=== PATIENT | female | born 1945 | race Caucasian/White ===

== ENCOUNTER → 2019-01-28 | Outpatient (CLI) | payer MEDICARE ==
[2019-01-28 10:47] LABS: INR 2.9 (<1.2); Partial Thromboplastin Time 34.9 sec (22.0-30.0); Prothrombin Time 27.8 sec (9.0-12.0)
[2019-01-28 10:56] LABS: Appearance,Urine Clear (Clear); Bilirubin,Urine Negative (Negative); Blood,Urine Negative (Negative); Color,Urine Light Yellow; Glucose,Urine (UA) 4+ (Negative); Ketones,Urine Trace (Negative); Leukocyte Esterase,Urine Negative (Negative); Nitrite,Urine Negative (Negative); Protein,Urine Negative (Negative); Specific Gravity,Urine 1.017 (1.001-1.035); Urobilinogen,Urine <2.0 mg/dL (<2.0)
[2019-01-28 10:59] LABS: ALT 53 U/L (9-52); AST 62 U/L (14-36); African American GFR (CKD) >90 (>60 ml/min/1.73 sqM); Albumin 4.1 g/dL (3.5-5.0); Alkaline Phosphatase 69 U/L (38-126); Anion Gap 15 mmol/L; Blood Urea Nitrogen 18 mg/dL (7-17); Calcium 9.6 mg/dL (8.4-10.2); Carbon Dioxide 20 mmol/L (22-30); Chloride 101 mmol/L (98-107); Glucose 285 mg/dL (74-99); Potassium 4.8 mmol/L (3.5-5.1); Sodium 136 mmol/L (137-145); Total Bilirubin 0.3 mg/dL (0.2-1.3); Total Protein 6.5 g/dL (6.3-8.2)
[2019-01-28 11:02] LABS: Basophils % (A) 1 %; Eosinophils # (A) 0.1 k/uL (0-0.7); Eosinophils % (A) 3 %; HCT 36.4 % (34.0-46.0); HGB 11.7 gm/dL (11.4-16.0); Hypochromasia Slight; Lymphocytes # (A) 0.9 k/uL (1.0-4.8); Lymphocytes % (A) 25 %; MCH 28.2 pg (25.0-35.0); MCHC 32.1 g/dL (31.0-37.0); MCV 87.9 fL (80.0-100.0); Mean Platelet Volume 6.5; Monocytes # (A) 0.2 k/uL (0-1.0); Monocytes % (A) 5 %; Neutrophils # (A) 2.5 k/uL (1.3-7.7); Neutrophils % (A) 65 %; Platelet Count 174 k/uL (150-450); RBC 4.14 m/uL (3.80-5.40); RDW 13.8 % (11.5-15.5); WBC 3.8 k/uL (3.8-10.6)
--- NOTE | 2019-01-28 11:17 | XR ---
EXAMINATION TYPE: XR chest 2V DATE OF EXAM: 01/28/2019 COMPARISON: NONE HISTORY: Presurgical testing for spinal surgery. TECHNIQUE: Frontal and lateral views of the chest are obtained. FINDINGS: There is no focal air space opacity, pleural effusion, or pneumothorax seen. The cardiac silhouette size is within normal limits. The osseous structures are intact. Mild multilevel degener ative changes of the thoracic spine. IMPRESSION: No acute cardiopulmonary process.
== END | disposition home or self-care (01) ==
LOC: LABPAT 09:30
PROVIDERS: ATTEND Orthopaedic Surgery Orthopaedic Surgery of the Spine
DX: Z01.818 Encounter for other preprocedural examination (principal); Z01.812 Encounter for preprocedural laboratory examination; M48.061 Spinal stenosis, lumbar region without neurogenic claudication; Z79.01 Long term (current) use of anticoagulants
CPT/HCPCS: 71046; 80053; 81003; 85025; 85610; 85730; 87070; 93005

== ENCOUNTER → 2019-01-28 | Outpatient (CLI) | payer MEDICARE ==
[2019-01-28 18:52] LABS: Hemoglobin A1C 7.3 % (4.0-6.0)
== END | disposition home or self-care (01) ==
LOC: LABWHC1 09:35
PROVIDERS: ATTEND Physician Assistant
DX: E11.9 Type 2 diabetes mellitus without complications (principal)
CPT/HCPCS: 36415; 83036

== ENCOUNTER 2019-02-09 08:46 | Inpatient (IN) | payer MEDICARE ==
[2019-02-02 09:03] VITALS: BMI 31.4
[~2019-02-09 08:46] MED LIST: BACITRACIN 50,000 UNIT, POLYMYXIN B 500,000 UNIT in SODIUM CHLORIDE 0.9% IRRIGATIO 1,00... IRRIGATION ONE
[2019-02-09] MEDS ORDERED: MIDAZOLAM 2 MG/2 ML VIAL IV PRN (09:01)
[2019-02-09] MEDS ORDERED: LIDOCAINE 1% 20 ML VIAL (10MG/ML) FOR IV START INTRADERMA PRN (09:01)
[2019-02-09] MEDS ORDERED: SCOPOLAMINE 1.5MG/72HR PATCH TRANSDERM ONE (09:01)
[2019-02-09] MEDS ORDERED: DEXAMETHASONE SOD PHOSPHATE 10 MG/ML 1 ML VIAL IV ONE (09:01)
[2019-02-09] MEDS ORDERED: ONDANSETRON 4 MG/2 ML VIAL IVP ONE (09:01)
[2019-02-09] MEDS: LACTATED RINGERS 1,000 ML IV SCH (09:41)
[2019-02-09 09:45] LABS: Glucose,Whole Blood 172 mg/dL (75-99)
[2019-02-09 10:24] LABS: INR 1.1 (<1.2); Prothrombin Time 11.5 sec (9.0-12.0)
[2019-02-09] MEDS ORDERED: SUCCINYLCHOLINE CHLORIDE 100 MG/5 ML SYR IV ONE (10:26)
[2019-02-09] MEDS ORDERED: HYDROmorphone (PF) 1 MG/ML ONE (10:26)
[2019-02-09] MEDS ORDERED: fentaNYL (PF) 50 MCG/ML 2 ML AMP ONE (10:26)
[2019-02-09] MEDS ORDERED: ePHEDrine SULFATE/0.9% NACL/PF 50 MG/5 ML SYRINGE IV ONE (10:26)
[2019-02-09] MEDS ORDERED: PROPOFOL 10 MG/ML 20 ML VIAL IV ONE (10:26)
[2019-02-09] MEDS ORDERED: LIDOCAINE 1% INJ 10MG/ML (20 ML MDV) ONE (10:26)
[2019-02-09] MEDS ORDERED: MIDAZOLAM 2 MG/2 ML VIAL ONE (10:26)
[2019-02-09] MEDS ORDERED: THROMBIN (BOVINE) 5,000 UNIT VIAL TOPICAL ONE (10:30)
[2019-02-09] MEDS ORDERED: LIDOCAINE 0.5%-EPI 1:200,000 50 ML VIAL SQ ONE (10:30)
[2019-02-09] MEDS ORDERED: GELATIN SPONGE,ABSORB (LARGE) 1 EACH SPONGE TOPICAL ONE (10:30)
[2019-02-09] MEDS ORDERED: LACTATED RINGERS 1,000 ML IV ONE ×2 (12:07→13:46)
[2019-02-09] MEDS ORDERED: BENZOCAINE/MENTHOL LOZENG 1 EACH LOZENGE MUCOUS MEM PRN (14:45)
[2019-02-09] MEDS ORDERED: ONDANSETRON 4 MG/2 ML VIAL IVP PRN (14:45)
[2019-02-09] MEDS ORDERED: HYDROmorphone 1 MG/ML 1 ML SYRINGE IVP PRN (14:45)
[2019-02-09] MEDS ORDERED: MAGNESIUM HYDROXIDE 2,400 MG/10 ML CUP PO PRN (14:45)
[2019-02-09] MEDS ORDERED: HYDROcodone/APAP 5-325MG 1 EACH TAB PO PRN (14:45)
--- NOTE | 2019-02-09 14:54 | P.OP ---
Date of Procedure: 02/09/19 Preoperative Diagnosis: Severe spinal stenosis L3 4 L4 5, neurogenic claudication, bilateral lower extremity radiculopathy , low back pain, facet arthrosis, degenerative disc disease Postoperative Diagnosis: Same Anesthesia: GETA Pathology: none sent Condition: stable Disposition: PACU Description of Procedure: DESCRIPTION OF PROCEDURE(S): BRIEF OPERATIVE NOTE Preoperative Diagnosis: Severe spinal stenosis L3 4 L4 5, neurogenic claudication, bilateral lower extremity radiculopathy , low back pain, facet arthrosis, degenerative disc disease Postoperative Diagnosis:Severe spinal stenosis L3 4 L4 5, neurogenic claudication, bilateral lower extremity radiculopathy , low back pain, facet arthrosis, degenerative disc disease Procedure: Laminectomy and decompression L3 4 L4 5 Minimally invasive Posterior lateral decompression and facet fusion L3 4 L4 5 Minimally invasive Transforaminal lumbar interbody fusion for a 360 fusion L3 4 L4 5 Discectomy for decompression L3 4 L4 5 Placement of interbody graft L3 4 L4 5 Local autogenous bone grafting Harvesting of bone marrow aspirate he the pedicle and vertebral body of L3 on the right Use of Cell Saver Use of bone graft extenders Surgeon: Dr. Ferro Environmental Compliance Inspector: Bear Martinez is present throughout the entire the case persistence during positioning, dissection, exposure, visualization, and all crucial elements of the case as well as closure. Anesthesia: General anesthesia per Dr. Martin Estimated blood loss: Approximately 550 mL with 219 given back through Cell Saver Complications: None apparent Components implanted: K2M minimally invasive [place] pedicle screw system with use of 6 screws measuring 6.5 x 45 mm 2 rods measuring 65 mm to [place] interbody cages with 10 mL of Bio4 bone graft and 30 mL of DBX bone fibers to supplemental local autogenous bone graft Disposition: To recovery room in good stable condition. OPERATIVE INDICATIONS The patient has had long-standing issues in their lower back and lower extrem ities. She is having worsening symptoms at her back and bilateral lower extremities particularly with mobilization and ambulation and standing. She is found to have severe stenosis L3 4 and L4 5 with degenerative disc changes. These findings correlated well with her low back and lower extremity symptoms. She is not having any benefit despite aggressive conservative treatment. The patient has been through conservative treatment. We discussed various treatment options including surgery, and the patient wishes to proceed with surgery We discussed the risk, patient's alternatives and benefits of surgery including but not limited to, risk of bleeding risk of infection, risk of need for further surgery, risk of decreased, loss of motion, muscle function, malunion nonunion, hardware failure, nerve damage, paralysis, heart attack, blindness and . OPERATIVE SUMMARY After discussing all the risks, patient alternatives and benefits at length, the patient elected to proceed with surgical intervention, signed informed consent, and presented for their procedure. The patient was seen and examined in the preoperative holding area and the surgical site was marked. The patient was giv en antibiotics and brought to the operating room. The patient was sedated and intubated by anesthesia in standard fashion. The patient was positioned on to the operating room table in a prone position on the appropriate frame which was well-padded and well molded. We were careful to pad any bony prominences and pressure points. We were careful to maintain the patient's cervical spine and good neutral alignment and position throughout. The patient was prepped and draped in a normal standard fashion. An appropriate timeout and keystone protocol performed. We were able to proceed with the s urgery. The local wound area was infiltrated with local anesthetic. I was able utilize C-arm guidance to establish appropriate position over the pedicles bilaterally at the appropriate levels at L3 4 and 5. With the appropriate levels confirmed was able to make small stab incisions over the appropriate pedicle sites bilaterally. Utilizing C-arm in his house able to establish a Jamshidi needle over the lateral aspect of the pedicle and advanced the trocar into the pedicle being careful not to breech superiorly inferiorly medially or laterally. Position was confirmed regularly with AP and lateral images on C-arm. I was able to establish the trocar into the pedicle appropriately into the posterior aspect of the vertebral body bilaterally at the appropriate levels at L3-L4 and L5. This was done at each of the pedicle positions and each of the vertebrae. At L3 on the right I withdrew approximately 25 mL of bone marrow aspirate to be used for supplementing the autograft and allograft later in the case. I was able place the guidewire into the trocar and into the vertebral body appropriately under C-arm guidance. Dissection was taken down over the wire to the appropriate starting position for the screw placed. The appropriate length screw was chosen, threaded over the guidewire and screwed appropriately into the pedicle and vertebral body under C- arm guidance in excellent alignment and position with good bony purchase. This is done at each of the screw sites at the appropriate levels at L3 4 L4 5. At the L3 screw on the left I had positive stimulation with name testing and I move the screw laterally with guidance and direct observation. I was able get excellent alignment position and excellent bony purchase. The screw did not have any stimulation at 25 mA. With the screws intact I extended the incision to connect the screw hole sites on the most symptomatic side on the left. I started at L4 5 and then moved L3 4. I dissected down to establish access over the pars and lamina to the base of the spinous process. I was able to expose the facet joint. The capsule the facet was taken down and showed some facet arthrosis at the joint. I was able to use a combination of curettes and Kerrison rongeurs and a high-speed drill to take down the facet joint and do a facetectomy. Partial laminectomy was also performed. I was able get excellent foraminal decompression and central decompression with undermining across midline to perform a laminectomy centrally and contralaterally. As able get good central decompression. The ligamentum flavum was taken down to further decompress centrally and at bilateral neural foramen. I was able to expose the disc space and visualize the traversing nerve root. Note was made of some disc protrusion at the level causing further compression of the nerve root. I was able to establish a annulotomy at the appropriate level protecting soft tissue and neural structures. Note was made of some disc desiccation at the disc. I performed a complete discectomy with accommodation of curettes and rasps and scrapers. I was able get good endplate preparation at the disc space. I sized for the appropriate size interbody spacer protecting the soft tissue and neural structures. The wound was copiously irrigated and suctioned dry. There is no evidence of any dural tear or leak. I was able to pack the disc space with local autogenous bone graft as well as a small amount of bone graft which was also placed into the interbody cage itself. Protecting the soft tissue structures and neural structures I was able place the interbody cage in good alignment and good position with good fit and fill at the interbody space. This was done at both L4 5 and L3 4. His issues was confirmed with C-arm guidance. Good hemostasis maintained. There is no evidence of any dural tear or leak. The wound was irrigated and suctioned dry. With the hardware intact, intraoperative C-arm imaging was again taken which showed good alignment and position of the hardware at the appropriate levels at L3 4 and 5. We were then able to measure, contour and place the rods and appropriate hardware bilaterally. I was able to place capcrews, tighten them down, and torque them with the torque screwdriver appropriately. With this intact I was able to place the local autogenous bone graft with additional bone graft enhancer as necessary into the posterior lateral gutters over the decorticated transverse processes. The remainder of the bone graft was placed over the facet joint on the contralateral side after taking down the facet joint capsule. With the bone graft intact, a stable construct, and good decompression at the appropriate levels, we were able to proceed with closure. Good hemostasis was maintained. There is no evidence of dural tear or leak. The fascia was closed for a watertight closure. he subcuticular tissue was closed with absorbable suture. The wound was cleaned and dried and dressed with the appropriate dressing. The drapes were broken down. The patient was gently rolled back onto their hospital bed being careful to maintain their cervical spine and good neutral alignment and position. They were woken up by anesthesia, extubated, and brought to the recovery room in good stable condition. The patient will be admitted to the hospital for appropriate postoperative care, medical management and monitoring. We will continue to follow them closely about the postoperative course.
[2019-02-09] MEDS ORDERED: WARFARIN 5 MG TAB PO SCH (15:00)
[2019-02-09 15:10] LABS: Glucose,Whole Blood 147 mg/dL (75-99)
--- NOTE | 2019-02-09 15:45 | XR ---
Fluoroscopy INDICATION: Pain FINDINGS: Fluoroscopy time: 2.4 minutes Images obtained: 4. IMPRESSIONS: 1. Documentation of fluoroscopy.
[2019-02-09] MEDS: HYDROmorphone 0.5 MG/0.5 ML SYRINGE IVP PRN ×3 (15:48→20:41)
[2019-02-09] MEDS ORDERED: SODIUM CHLORIDE 0.9% 1,000 ML IV ONE (16:15)
[2019-02-09] MEDS: INSULIN ASPART (NovoLOG) 100 UNIT/ML VIAL SQ SCH ×2 (16:49→20:40)
[2019-02-09] MEDS: metFORMIN 500 MG TAB PO SCH (16:50)
[2019-02-09] MEDS ORDERED: WARFARIN 5 MG TAB PO ONE (18:00)
[2019-02-09] MEDS: HYDROcodone/APAP 5-325MG 1 EACH TAB PO PRN ×2 (18:08→23:04)
[2019-02-09 20:13] LABS: Glucose,Whole Blood 227 mg/dL (75-99)
[2019-02-09] MEDS: LISINOPRIL 20 MG TAB PO SCH (20:41)
[2019-02-09] MEDS: FERROUS SULFATE 325 MG TAB PO SCH (20:41)
[2019-02-09] MEDS: SODIUM CHLORIDE 0.9% 1,000 ML IV SCH (20:43)
[2019-02-10] MEDS: HYDROmorphone 0.5 MG/0.5 ML SYRINGE IVP PRN ×4 (01:57→18:26)
[2019-02-10] MEDS: HYDROcodone/APAP 5-325MG 1 EACH TAB PO PRN ×4 (04:39→20:09)
[2019-02-10] MEDS: SODIUM CHLORIDE 0.9% 1,000 ML IV SCH ×2 (04:40→17:02)
[2019-02-10 06:59] LABS: Glucose,Whole Blood 252 mg/dL (75-99)
[2019-02-10] MEDS: GLIMEPIRIDE 2 MG TAB PO SCH (07:05)
[2019-02-10] MEDS: metFORMIN 500 MG TAB PO SCH ×2 (07:05→17:31)
[2019-02-10] MEDS: INSULIN ASPART (NovoLOG) 100 UNIT/ML VIAL SQ SCH ×3 (07:05→17:31)
[2019-02-10 07:13] LABS: Basophils % (A) 0 %; Eosinophils # (A) 0.2 k/uL (0-0.7); Eosinophils % (A) 3 %; HCT 32.6 % (34.0-46.0); HGB 10.4 gm/dL (11.4-16.0); Hypochromasia Moderate; Lymphocytes # (A) 0.3 k/uL (1.0-4.8); Lymphocytes % (A) 5 %; MCH 27.9 pg (25.0-35.0); MCHC 31.7 g/dL (31.0-37.0); MCV 87.9 fL (80.0-100.0); Mean Platelet Volume 6.9; Monocytes # (A) 0.3 k/uL (0-1.0); Monocytes % (A) 5 %; Neutrophils # (A) 5.8 k/uL (1.3-7.7); Neutrophils % (A) 86 %; Platelet Count 133 k/uL (150-450); RBC 3.71 m/uL (3.80-5.40); RDW 13.8 % (11.5-15.5); WBC 6.8 k/uL (3.8-10.6)
[2019-02-10 07:21] LABS: INR 1.1 (<1.2); Prothrombin Time 11.9 sec (9.0-12.0)
[2019-02-10 07:25] LABS: Calcium 8.1 mg/dL (8.4-10.2); Potassium 4.7 mmol/L (3.5-5.1)
--- NOTE | 2019-02-10 08:44 | P.PN ---
Progress Note - Text Progress Note Date: 02/10/19 Postoperative day #1 Patient is seen and examined today at bedside. The patient has some pain around the surgical site as expected. Pain is being controlled with medication. She says her legs are doing well without any new change. She has pain at her back which is expected. She has not been out of bed. She is tolerating her diet adequately. Physical Exam Afebrile with stable vital signs Abdomen is soft nontender. Chest has good excursion deep and space expiration The incision site is clean dry and intact. No erythema there is no purulence. Dressings are clean at her back. Extremities have not had neurologic change from prior to surgery. She has sustained dorsal flexion plantarflexion and EHL intact Calves and thighs were soft nontender without evidence of DVT. Assessment/Plan Postoperative day #1 status post minimally invasive decompression and fusion for her severe spinal stenosis L3 4 L4 5 with disc degeneration lower extremity radiculopathy Patient is progressing as expected from the surgery. Her pain at her back is expected and is being controlled with medication. She will try to get up with therapy today she feels that she will be able to do it. She is hopeful to increase her mobility over the next couple of days so that she can go directly to home rather than a facility and I think that is reasonable if she makes good progress with her mobility safely. We will continue to increase the patient's mobilization with therapy. We will continue pain control with oral or IV medications. We'll continue to follow patient closely.
[2019-02-10] MEDS: FERROUS SULFATE 325 MG TAB PO SCH ×2 (09:38→20:09)
[2019-02-10] MEDS: SENNOSIDES-DOCUSATE SODIUM 1 EACH TAB PO SCH (09:38)
[2019-02-10] MEDS: BISOPROLOL-HCTZ 5-6.25 MG 1 EACH TAB PO SCH (09:38)
[2019-02-10] MEDS: PARoxetine 20 MG TAB PO SCH (09:38)
[2019-02-10] MEDS: LACTATED RINGERS 1,000 ML IV SCH (10:52)
[2019-02-10 11:50] LABS: Glucose,Whole Blood 184 mg/dL (75-99)
--- NOTE | 2019-02-10 17:01 | P.CONS ---
History of Present Illness - Reason for Consult Consult date: 02/10/19 Medical management Requesting physician: Quinn Ferro - Chief Complaint Back surgery - History of Present Illness Consultation: This is a pleasant 72-year-old patient of Dr. Aggarwal. Chronic stable medical conditions include atrial fibrillation, diabetes, GERD, hypertension, osteoarthritis. Patient had severe spinal stenosis and L3-L4 and L4-L5 level with neurogenic claudication bilateral lower extremity radiculopathy lower back pain. Patient underwent discectomy and associated surgical intervention by Dr. Ferro. This was done on February 09. Today patient's feeling a bit better. Back pain is present. Did eat a small amount of food.. Did use a walker to get to the bathroom. Seen by physical therapy. No fever no chills. Slight nausea. No chest pain no shortness breath. Did pass some flatus. Review of systems: GEN.: Tired EYES: None HEENT: None NECK: None RESPIRATORY: None CARDIOVASCULAR: None GASTROINTESTINAL: None GENITOURINARY: None MUSCULOSKELETAL: [Joint pain LYMPHATICS: None HEMATOLOGICAL: None PSYCHIATRY: None NEUROLOGICAL: None Social history: Does not smoke. No alcohol. Physical examination: VITAL SIGNS: 98.4, 91, 16, 90/50, 99% room air GENERAL: BMI 30.2, sitting up tired. EYES: Pupils equal. Conjunctiva normal. HEENT: External appearance of nose and ears normal, oral cavity grossly normal. NECK: JVD not raised; masses not palpable. HEART: First and second heart sounds are normal; no edema. LUNGS: Respiratory rate normal; clear to auscultation. ABDOMEN: Soft, nontender, liver spleen not palpable, no masses palpable. PSYCH: Alert and oriented x3; mood and affect normal. NEUROLOGICAL: Cranial nerves grossly intact; no facial asymmetry, power and sensation grossly intact, is using a walker to get to the bathroom. LYMPHATICS: No lymph nodes palpable in the axilla and neck MUSCULAR skeletal: Dressing over the surgical site INVESTIGATIONS, reviewed in the clinical context: White count 6.8 hemoglobin 10.4 platelets 133 potassium 4.7 creatinine 0.79 Accu-Cheks 252, 184 Preop hemoglobin was 11.7 EKG tracing personally reviewed by me-from January 28 shows right bundle-branch block, sinus rhythm Assessment: -Severe spinal stenosis L3-L4, L4-L5 with neurogenic claudication, bilateral lower extremity radiculopathy and low back pain resulting in lumbar surgery done on February 09 -Paroxysmal atrial fibrillation, for which patient is chronically on Coumadin -Diabetes mellitus type 2 on oral hypoglycemic -Essential hypertension -Primary osteoarthritis -Obesity BMI 30.2 -Restless leg syndrome Plan: -Patient is on pain medication per the orthopedic team. Home medications resumed. Accu-Cheks are being followed. Coumadin will be resumed today.-As per surgery. Care was discussed with the patient and his sister at the bedside. Questions were answered Thank you Dr. Ferro Past Medical History Past Medical History: Atrial Fibrillation, Diabetes Mellitus, GERD/Reflux, Hypertension, Osteoarthritis (OA), Pneumonia Additional Past Medical History / Comment(s): steroid injection back Nov 2018,herniated disc,ddd sciatic nerve pain, shingles 1994 History of Any Multi-Drug Resistant Organisms: None Reported Past Surgical History: Adenoidectomy, Heart Catheterization, Hysterectomy, Joint Replacement, Tonsillectomy Additional Past Surgical History / Comment(s): lt knee arthrocopy, shai knee replacements d&cx2, 2 ectopic pregnancies, partial hysterectomy, rt breast bx- neg, cystocele/rectocele repair, shai carpal tunnel release; shai cataracts Past Anesthesia/Blood Transfusion Reactions: Motion Sickness Additional Past Anesthesia/Blood Transfusion Reaction / Comm: no hx blood transfusion Smoking Status: Never smoker - Past Family History Mother Family Medical History: Cancer, Dementia Additional Family Medical History / Comment(s): irregular heart rythm, colon cancer, lived till she was 92 years old Father Family Medical History: Myocardial Infarction ([place]) Additional Family Medical History / Comment(s): at age 62 from massive mi Medications and Allergies Home Medications Medication Instructions Recorded Confirmed Type Ferrous Sulfate [Feosol] 325 mg PO BID 02/15/15 02/09/19 History PARoxetine [Paxil] 20 mg PO QAM 02/15/15 02/09/19 History metFORMIN HCL 1,000 mg PO BID 02/15/15 02/09/19 History Bisoprolol-Hctz 5-6.25 mg [Ziac 1 each PO QAM 04/08/16 02/09/19 History 5-6.25] Garlic 1 each PO DAILY 04/08/16 02/09/19 History Lisinopril [Zestril] 20 mg PO HS 04/08/16 02/09/19 History [place]-3 Fatty Acids/Fish Oil [Fish 1 each PO DAILY 04/08/16 02/09/19 History Oil 1,000 mg Softgel] Warfarin [Coumadin] 5 mg PO SUTUWEFRSA 04/08/16 02/09/19 History Warfarin [Coumadin] 6 mg PO MOTH 04/08/16 02/09/19 History rOPINIRole HCL [Requip] 1 mg PO HS 04/08/16 02/09/19 History Glucos Sul 2Kcl/MSM/Chond/C/Mn 1 each PO DAILY 02/02/19 02/09/19 History [Glucosamine Chondroitin Cap] Acetaminophen Tab [Tylenol Tab] 1,000 mg PO Q6HR PRN 02/03/19 02/09/19 History Glimepiride [Amaryl] 2 mg PO DAILY 02/04/19 02/09/19 History Allergies Allergy/AdvReac Type Severity Reaction Status Date / Time No Known Allergies Allergy Verified 02/09/19 16:35 Physical Exam Vitals: Vital Signs Temp Pulse Resp BP Pulse Ox 02/10/19 07:00 98.3 F 100 16 107/64 92 L 02/10/19 04:50 17 02/10/19 02:23 97.8 F 101 H 17 107/59 98 02/09/19 23:00 17 02/09/19 19:41 97 02/09/19 19:33 97.7 F 88 18 130/65 98 02/09/19 19:20 18 02/09/19 19:15 86 137/65 90 L 02/09/19 19:00 85 134/61 90 L 02/09/19 18:45 88 136/63 92 L 02/09/19 18:00 86 144/82 94 L 02/09/19 17:50 98.4 F 91 16 147/79 91 L 02/09/19 17:45 88 139/82 97 02/09/19 17:30 93 118/56 96 02/09/19 17:15 85 146/83 96 02/09/19 17:00 86 146/81 96 02/09/19 16:45 98.8 F 88 18 154/77 97 02/09/19 16:13 86 16 132/64 96 02/09/19 15:55 87 16 131/60 96 02/09/19 15:40 86 16 161/70 95 02/09/19 15:25 96 18 147/65 95 02/09/19 15:10 101 H 16 147/63 97 02/09/19 14:55 99 16 147/69 98 02/09/19 14:40 98.7 F 105 H 14 147/67 97 Intake and Output 02/09/19 02/10/19 02/10/19 22:59 06:59 14:59 Intake Total 200 Output Total 275 Balance -75 Intake: IV 200 Output: Urine 275 Other: Voiding Method Indwelling Catheter Indwelling Catheter # Voids 500 Results CBC & Chem 7: 02/10/19 07:00 02/10/19 07:00 Labs: Abnormal Lab Results - Last 24 Hours (Table) 02/09/19 02/09/19 02/10/19 Range/Units 15:08 19:54 06:56 RBC (3.80-5.40) m/uL Hgb (11.4-16.0) gm/dL Hct (34.0-46.0) % Plt Count (150-450) k/uL Lymphocytes # (1.0-4.8) k/uL Carbon Dioxide (22-30) mmol/L BUN (7-17) mg/dL Glucose (74-99) mg/dL POC Glucose (mg/dL) 147 H 227 H 252 H (75-99) mg/dL Calcium (8.4-10.2) mg/dL 02/10/19 02/10/19 Range/Units 07:00 07:00 RBC 3.71 L (3.80-5.40) m/uL Hgb 10.4 L (11.4-16.0) gm/dL Hct 32.6 L (34.0-46.0) % Plt Count 133 L (150-450) k/uL Lymphocytes # 0.3 L (1.0-4.8) k/uL Carbon Dioxide 21 L (22-30) mmol/L BUN 18 H (7-17) mg/dL Glucose 212 H (74-99) mg/dL POC Glucose (mg/dL) (75-99) mg/dL Calcium 8.1 L (8.4-10.2) mg/dL
[2019-02-10 17:33] LABS: Glucose,Whole Blood 185 mg/dL (75-99)
[2019-02-10] MEDS ORDERED: WARFARIN 5 MG TAB PO ONE (18:00)
[2019-02-10] MEDS: LISINOPRIL 20 MG TAB PO SCH (20:09)
[2019-02-10 23:36] LABS: Glucose,Whole Blood 202 mg/dL (75-99)
[2019-02-11] MEDS: INSULIN ASPART (NovoLOG) 100 UNIT/ML VIAL SQ SCH ×5 (00:05→20:31)
[2019-02-11] MEDS: HYDROmorphone 0.5 MG/0.5 ML SYRINGE IVP PRN ×5 (00:05→20:30)
[2019-02-11 06:58] LABS: Glucose,Whole Blood 237 mg/dL (75-99)
[2019-02-11] MEDS: SODIUM CHLORIDE 0.9% 1,000 ML IV SCH ×2 (07:26→20:32)
[2019-02-11] MEDS: LACTATED RINGERS 1,000 ML IV SCH (07:27)
[2019-02-11] MEDS: FERROUS SULFATE 325 MG TAB PO SCH ×2 (08:00→20:32)
[2019-02-11] MEDS: metFORMIN 500 MG TAB PO SCH ×2 (08:00→17:08)
[2019-02-11] MEDS: GLIMEPIRIDE 2 MG TAB PO SCH (08:00)
[2019-02-11] MEDS: HYDROcodone/APAP 5-325MG 1 EACH TAB PO PRN ×4 (08:00→23:17)
[2019-02-11] MEDS: PARoxetine 20 MG TAB PO SCH (08:00)
[2019-02-11] MEDS: SENNOSIDES-DOCUSATE SODIUM 1 EACH TAB PO SCH (08:00)
[2019-02-11] MEDS: BISOPROLOL-HCTZ 5-6.25 MG 1 EACH TAB PO SCH (08:01)
[2019-02-11 08:54] LABS: INR 1.2 (<1.2); Prothrombin Time 12.4 sec (9.0-12.0)
--- NOTE | 2019-02-11 09:08 | P.PN ---
Progress Note - Text Progress Note Date: 02/11/19 Orthopedic Spine Patient is a pleasant 73-year-old female who is seen and examined at the bedside following L3-4 and L4-5 minimally invasive posterior lateral decompression and fusion with transforaminal lumbar interbody fusion performed 02/09/2019. She feels she continues to improve slowly postoperatively. She denies any lower extremity weakness radiculopathy bilaterally. Her most significant symptom is pain at the lumbar spine at the surgical sites. She is currently receiving Dilaudid and oral Nes[place]set for pain control. She is planning to try to wean off Dilaudid today. She's been working with physical therapy to increase mobility. She is hopeful to continue to improve over the next 1-2 days with plans for discharge home. She states she does have help at home with multiple family members and feels she would be more comfortable at home versus rehab. Currently does not complain of nausea, vomiting, fever, or chills. Patient states pain has been adequately controlled. Patient is eating and voiding freely without difficulty. She has been using her incentive spirometer. Physical Exam Lumbar Fusion: Status post surgical day number 2 Patient is awake, alert, and oriented 3 Vital signs stable Good chest excursion with deep inspiration and expiration Abdomen soft nontender Dorsiflexion, plantarflexion, and extensor hallucis longus positive sustained bilaterally No signs or symptoms of DVT; no calf pain; pneumatic cuffs intact bilateral lower extremities Dressing is clean, dry, and intact; no erythema, purulence, or signs of infection Neurovascularly intact bilaterally lower extremities Assessment: L3-4 and L4-5 minimally invasive posterior lateral decompression and fusion with transforaminal lumbar interbody fusion Diabetes type 2 History of Atrial fibrillation History of Heart disease Hypertension Plan: 1. Ambulate as tolerated; work with Physical Therapy to increase mobilization 2. Continue pain control with IV and oral medications; we'll plan to wean off IV medications in anticipation for discharge home over the next 1-2 days MAPS has been reviewed today, 02/11/2019, with an Overall Overdose Risk Score of 000. An "Opiod Start Talking" Form has been signed and placed in the patient's chart. A prescription has been written for Nesconset 5 mg/325 mg 1-2 tabs every 6 hours as needed for pain, dispensed #56. Prescription has been sent to the patient's pharmacy in [place], [place]. She should avoid anti-inflammatories over the next 6 weeks postoperatively. 3. Dressing changed to Telfa and Tegaderm; Hemovac drain discontinued 4. Medical management can continue to manage patient for patient's other medical issues 5. We will continue to follow the patient closely 6. Patient can follow-up with Bear Rutledge PA-C or Dr. Asaf Ferro at [facility] in 2-3 weeks following discharge
[2019-02-11 11:52] LABS: Glucose,Whole Blood 152 mg/dL (75-99)
[2019-02-11 16:59] LABS: Glucose,Whole Blood 113 mg/dL (75-99)
[2019-02-11] MEDS ORDERED: WARFARIN 7.5 MG TAB PO ONE (18:00)
[2019-02-11 20:30] LABS: Glucose,Whole Blood 146 mg/dL (75-99)
[2019-02-11] MEDS: LISINOPRIL 20 MG TAB PO SCH (20:31)
--- NOTE | 2019-02-11 22:37 | P.PN ---
Progress Note - Text Progress Note Date: 02/11/19 Consultation: This is a pleasant 72-year-old patient of Dr. Aggarwal. Chronic stable medical conditions include atrial fibrillation, diabetes, GERD, hypertension, osteoarthritis. Patient had severe spinal stenosis and L3-L4 and L4-L5 level with neurogenic claudication bilateral lower extremity radiculopathy lower back pain. Patient underwent discectomy and associated surgical intervention by Dr. Ferro. This was done on February 09. Today-feeling better. Did walk in the hallway with physical therapy. Pain is better controlled. Did pass flatus. No bowel movement. Eating better. at the bedside. Review of systems: Was done for constitutional, cardiovascular, GI, pulmonary. Musculoskeletal relevant finding as above Active Medications Hydrocodone Bitart/Acetaminophen ([place] 5-325) 1 each PO Q4HR PRN PRN Reason: Moderate Pain Hydrocodone Bitart/Acetaminophen ([place] 5-325) 2 each PO Q4HR PRN PRN Reason: Moderate Pain Last Admin: 02/11/19 17:09 Dose: 2 each Documented by: Benzocaine/Menthol (Cepacol Lozenge) 1 each MUCOUS MEM Q4HR PRN PRN Reason: Sore Throat Bisoprolol Fumarate (Ziac 5-6.25) 1 each PO QAM [facility] Last Admin: 02/11/19 08:01 Dose: 1 each Documented by: Ferrous Sulfate (Feosol) 325 mg PO BID [facility] Last Admin: 02/11/19 20:32 Dose: 325 mg Documented by: Glimepiride (Amaryl) 2 mg PO AC-BRKFST [facility] Last Admin: 02/11/19 08:00 Dose: 2 mg Documented by: Hydromorphone HCl (Dilaudid) 0.5 mg IVP Q4HR PRN PRN Reason: Pain Last Admin: 02/11/19 20:30 Dose: 0.5 mg Documented by: Hydromorphone HCl (Dilaudid) 1 mg IVP Q4HR PRN PRN Reason: Pain Lactated Ringer's (Lactated Ringers) 1,000 mls @ 20 mls/hr IV .Q24H [facility] Last Admin: 02/11/19 07:27 Dose: Not Given Documented by: Sodium Chloride (Saline 0.9%) 1,000 mls @ 75 mls/hr IV .[id number] [facility] Last Admin: 02/11/19 20:32 Dose: Not Given Documented by: Insulin Aspart (Novolog) 0 unit SQ ACHS [facility]; Protocol Last Admin: 02/11/19 20:31 Dose: 1 unit Documented by: Lidocaine HCl (.Xylocaine 1% Inj (10mg/Ml) For Iv Start) 0.1 ml INTRADERMA PER PROTOCOL PRN PRN Reason: IV Start Last Admin: 02/09/19 09:40 Dose: 0.1 ml Documented by: Lisinopril (Zestril) 20 mg PO [facility] Last Admin: 02/11/19 20:31 Dose: 20 mg Documented by: Magnesium Hydroxide (Milk Of Magnesia) 2,400 mg PO DAILY PRN PRN Reason: Constipation Metformin HCl (Glucophage) 1,000 mg PO AC-BID [facility] Last Admin: 02/11/19 17:08 Dose: 1,000 mg Documented by: Miscellaneous Information (Coumadin Per Pharmacy) 0 each MISCELLANE DIRECTED PRN PRN Reason: PHARMACY DOSING WARFARIN Ondansetron HCl (Zofran) 4 mg IVP Q6HR PRN PRN Reason: Nausea Last Admin: 02/09/19 16:51 Dose: 4 mg Documented by: Par[facility] ([facility]il) [facility] Last Admin: 02/11/19 08:00 Dose: 20 mg Documented by: Ropinirole HCl (Requip) 1 mg PO [facility] Last Admin: 02/11/19 20:31 Dose: 1 mg Documented by: Senna/Docusate Sodium (Senokot-S) 1 each PO DAILY [facility] Last Admin: 02/11/19 08:00 Dose: 1 each Documented by: Physical examination: VITAL SIGNS: 98.1, 102, 16, 11 5/62, 97% GENERAL: Propped bed, looking better EYES: Pupils equal. Conjunctiva normal. HEENT: External appearance of nose and ears normal, oral cavity grossly normal. NECK: JVD not raised; masses not palpable. HEART: First and second heart sounds are normal; no edema. LUNGS: Respiratory rate normal; clear to auscultation. ABDOMEN: Soft, nontender, liver spleen not palpable, no masses palpable. PSYCH: Alert and oriented x3; mood and affect normal. INVESTIGATIONS, reviewed in the clinical context: Accu-Cheks noted Previous testing White count 6.8 hemoglobin 10.4 platelets 133 potassium 4.7 creatinine 0.79 Accu-Cheks 252, 184 Preop hemoglobin was 11.7 EKG tracing personally reviewed by me-from January 28 shows right bundle-branch block, sinus rhythm Assessment: -Severe spinal stenosis L3-L4, L4-L5 with neurogenic claudication, bilateral lower extremity radiculopathy and low back pain resulting in lumbar surgery done on February 09 -Paroxysmal atrial fibrillation, for which patient is chronically on Coumadin -Diabetes mellitus type 2 on oral hypoglycemic -Essential hypertension -Primary osteoarthritis -Obesity BMI 30.2 -Restless leg syndrome Plan: Doing better. Continue current medication treatment plan. Care was discussed with the patient and the .: Coumadin to be Resume when okay with Dr. Ferro Thank you Dr. Ferro
[2019-02-12] MEDS: HYDROmorphone 0.5 MG/0.5 ML SYRINGE IVP PRN (02:36)
[2019-02-12 07:28] LABS: INR 1.2 (<1.2); Prothrombin Time 12.5 sec (9.0-12.0)
[2019-02-12 07:29] LABS: Glucose,Whole Blood 129 mg/dL (75-99)
[2019-02-12] MEDS: INSULIN ASPART (NovoLOG) 100 UNIT/ML VIAL SQ SCH ×4 (08:24→20:55)
[2019-02-12] MEDS: LACTATED RINGERS 1,000 ML IV SCH (08:25)
[2019-02-12] MEDS: GLIMEPIRIDE 2 MG TAB PO SCH (08:45)
[2019-02-12] MEDS: metFORMIN 500 MG TAB PO SCH ×2 (08:45→16:52)
[2019-02-12] MEDS: SENNOSIDES-DOCUSATE SODIUM 1 EACH TAB PO SCH (08:45)
[2019-02-12] MEDS: BISOPROLOL-HCTZ 5-6.25 MG 1 EACH TAB PO SCH (08:45)
[2019-02-12] MEDS: PARoxetine 20 MG TAB PO SCH (08:45)
[2019-02-12] MEDS: HYDROcodone/APAP 5-325MG 1 EACH TAB PO PRN ×4 (08:45→21:00)
[2019-02-12] MEDS: FERROUS SULFATE 325 MG TAB PO SCH ×2 (08:46→20:59)
[2019-02-12] MEDS: SODIUM CHLORIDE 0.9% 1,000 ML IV SCH ×2 (09:14→23:43)
--- NOTE | 2019-02-12 10:28 | P.PN ---
Progress Note - Text Progress Note Date: 02/12/19 Postoperative day #3 Patient is seen and examined today at bedside. The patient has some pain around the surgical site as expected. Pain is being controlled with medication. She has been able to ambulate into the hallway physical therapy but has significant difficulty on her own so far. She has been able have a bowel movement and she is tolerating her diet. Physical Exam Afebrile with stable vital signs Abdomen is soft nontender. Chest has good excursion deep and space expiration The incision site is clean dry and intact. No erythema there is no purulence. Her dressings are intact with no drainage Extremities have not had neurologic change from prior to surgery. She has sustained dorsal flexion plantar flexion and EHL intact. Calves and thighs were soft nontender without evidence of DVT. Assessment/Plan Postoperative day #3 status post been living base of decompression and fusion L34 L4 5 for severe spinal stenosis with lower extremity radiculopathy and neurogenic claudication Patient is progressing as expected from the surgery. She is making some improvement with her mobilization but it is still unable to move well on her own safely. She needs to make further progress with her transfers and ambulation on her own before she will be safe to be discharged home safely. She has 4 stairs to get into the house. Hopefully she will continue to make progress and be able to be discharged home on Thursday or Thursday on her own. We will continue to increase the patient's mobilization with therapy. Patient is okay to shower with her waterproof dressing intact. We will continue pain control with oral or IV medications. We'll continue to follow patient closely.
[2019-02-12 11:47] LABS: Glucose,Whole Blood 162 mg/dL (75-99)
[2019-02-12] MEDS: PANTOPRAZOLE 40 MG TABLET PO SCH (12:55)
[2019-02-12 17:08] LABS: Glucose,Whole Blood 86 mg/dL (75-99)
--- NOTE | 2019-02-12 17:57 | P.PN ---
Progress Note - Text Progress Note Date: 02/12/19 Consultation: This is a pleasant 72-year-old patient of Dr. Aggarwal. Chronic stable medical conditions include atrial fibrillation, diabetes, GERD, hypertension, osteoarthritis. Patient had severe spinal stenosis and L3-L4 and L4-L5 level with neurogenic claudication bilateral lower extremity radiculopathy lower back pain. Patient underwent discectomy and associated surgical intervention by Dr. Ferro. This was done on February 09. Today-continues to feel better. Did walk to the bathroom this morning. Awaiting therapy to walk in the hallway. Did have a bowel movement. Pain much better controlled. at the bedside. Review of systems: Was done for constitutional, cardiovascular, GI, pulmonary. Musculoskeletal relevant finding as above Active Medications Hydrocodone Bitart/Acetaminophen ([place] 5-325) 1 each PO Q4HR PRN PRN Reason: Moderate Pain Hydrocodone Bitart/Acetaminophen ([place] 5-325) 2 each PO Q4HR PRN PRN Reason: Moderate Pain Last Admin: 02/12/19 16:52 Dose: 2 each Documented by: Benzocaine/Menthol (Cepacol Lozenge) 1 each MUCOUS MEM Q4HR PRN PRN Reason: Sore Throat Bisoprolol Fumarate (Ziac 5-6.25) 1 each PO QAM [facility] Last Admin: 02/12/19 08:45 Dose: 1 each Documented by: Ferrous Sulfate (Feosol) 325 mg PO BID [facility] Last Admin: 02/12/19 08:46 Dose: 325 mg Documented by: Glimepiride (Amaryl) 2 mg PO AC-BRKFST [facility] Last Admin: 02/12/19 08:45 Dose: 2 mg Documented by: Hydromorphone HCl (Dilaudid) 0.5 mg IVP Q4HR PRN PRN Reason: Pain Last Admin: 02/12/19 02:36 Dose: 0.5 mg Documented by: Hydromorphone HCl (Dilaudid) 1 mg IVP Q4HR PRN PRN Reason: Pain Lactated Ringer's (Lactated Ringers) 1,000 mls @ 20 mls/hr IV .Q24H [facility] Last Admin: 02/12/19 08:25 Dose: Not Given Documented by: Sodium Chloride (Saline 0.9%) 1,000 mls @ 75 mls/hr IV .[id number] [facility] Last Admin: 02/12/19 09:14 Dose: Not Given Documented by: Insulin Aspart (Novolog) 0 unit SQ [facility]; Protocol Last Admin: 02/12/19 16:57 Dose: Not Given Documented by: Lidocaine HCl (.Xylocaine 1% Inj (10mg/Ml) For Iv Start) 0.1 ml INTRADERMA PER PROTOCOL PRN PRN Reason: IV Start Last Admin: 02/09/19 09:40 Dose: 0.1 ml Documented by: Lisinopril (Zestril) 20 mg PO [facility] Last Admin: 02/11/19 20:31 Dose: 20 mg Documented by: Magnesium Hydroxide (Milk Of Magnesia) 2,400 mg PO DAILY PRN PRN Reason: Constipation Metformin HCl (Glucophage) 1,000 mg PO AC-BID [facility] Last Admin: 02/12/19 16:52 Dose: 1,000 mg Documented by: Miscellaneous Information (Coumadin Per Pharmacy) 0 each MISCELLANE DIRECTED PRN PRN Reason: PHARMACY DOSING WARFARIN Ondansetron HCl (Zofran) 4 mg IVP Q6HR PRN PRN Reason: Nausea Last Admin: 02/09/19 16:51 Dose: 4 mg Documented by: Pantoprazole Sodium (Protonix) 40 mg PO AC-BRKFST [facility] Last Admin: 02/12/19 12:55 Dose: 40 mg Documented by: Paroxetine HCl (Paxil) [facility] [place] Last Admin: 02/12/19 08:45 Dose: 20 mg Documented by: Ropinirole HCl (Requip) 1 mg PO [facility] Last Admin: 02/11/19 20:31 Dose: 1 mg Documented by: Senna/Docusate Sodium (Senokot-S) 1 each PO DAILY [facility] Last Admin: 02/12/19 08:45 Dose: Not Given Documented by: Warfarin Sodium (Coumadin) 7.5 mg PO ONCE@1800 ONE Stop: 02/12/19 18:01 Last Admin: 02/12/19 16:52 Dose: 7.5 mg Documented by: Physical examination: VITAL: 98.3, 81, 16, 124/70, 94% room air GENERAL: Sitting up in bed, comfortable EYES: Pupils equal. Conjunctiva normal. HEENT: External appearance of nose and ears normal, oral cavity grossly normal. NECK: JVD not raised; masses not palpable. HEART: First and second heart sounds are normal; no edema. LUNGS: Respiratory rate normal; clear to auscultation. ABDOMEN: Soft, nontender, liver spleen not palpable, no masses palpable. PSYCH: Alert and oriented x3; mood and affect normal. INVESTIGATIONS, reviewed in the clinical context: Accu-Cheks noted Previous testing White count 6.8 hemoglobin 10.4 platelets 133 potassium 4.7 creatinine 0.79 Accu-Cheks 252, 184 Preop hemoglobin was 11.7 EKG tracing personally reviewed by me-from January 28 shows right bundle-branch block, sinus rhythm Assessment: -Severe spinal stenosis L3-L4, L4-L5 with neurogenic claudication, bilateral lower extremity radiculopathy and low back pain resulting in lumbar surgery done on February 09 -Paroxysmal atrial fibrillation, for which patient is chronically on Coumadin -Diabetes mellitus type 2 on oral hypoglycemic -Essential hypertension -Primary osteoarthritis -Obesity BMI 30.2 -Restless leg syndrome Plan: Patient doing much better. Medically stable. Does speak to the patient. Ambulate in the hallway. DC when okay with the primary team. Thank you Dr. Ferro
[2019-02-12] MEDS ORDERED: WARFARIN 7.5 MG TAB PO ONE (18:00)
[2019-02-12] MEDS: LISINOPRIL 20 MG TAB PO SCH (20:59)
[2019-02-12 21:07] LABS: Glucose,Whole Blood 97 mg/dL (75-99)
[2019-02-13] MEDS: HYDROcodone/APAP 5-325MG 1 EACH TAB PO PRN ×4 (00:53→13:40)
[2019-02-13 07:05] LABS: Glucose,Whole Blood 116 mg/dL (75-99)
[2019-02-13 07:32] LABS: INR 1.6 (<1.2); Prothrombin Time 16.1 sec (9.0-12.0)
[2019-02-13] MEDS: metFORMIN 500 MG TAB PO SCH (08:31)
[2019-02-13] MEDS: GLIMEPIRIDE 2 MG TAB PO SCH (08:31)
[2019-02-13] MEDS: SENNOSIDES-DOCUSATE SODIUM 1 EACH TAB PO SCH (08:32)
[2019-02-13] MEDS: PANTOPRAZOLE 40 MG TABLET PO SCH (08:32)
[2019-02-13] MEDS: PARoxetine 20 MG TAB PO SCH (08:32)
[2019-02-13] MEDS: FERROUS SULFATE 325 MG TAB PO SCH (08:32)
[2019-02-13] MEDS: INSULIN ASPART (NovoLOG) 100 UNIT/ML VIAL SQ SCH ×2 (08:33→13:38)
[2019-02-13] MEDS: BISOPROLOL-HCTZ 5-6.25 MG 1 EACH TAB PO SCH (08:40)
[2019-02-13 11:10] VITALS: BP 154/74; PULSE 80; RESP 16; TEMP 97.6
[2019-02-13 11:47] LABS: Glucose,Whole Blood 114 mg/dL (75-99)
[2019-02-13] MEDS: LACTATED RINGERS 1,000 ML IV SCH (13:38)
[2019-02-13] MEDS: SODIUM CHLORIDE 0.9% 1,000 ML IV SCH (13:40)
--- NOTE | 2019-02-13 14:10 | P.DS ---
Providers Date of admission: 02/09/19 08:46 Attending physician: Quinn Ferro Consults: 02/09/19 14:45 Consult Physician Routine Consulting Provider: Oj Chavarria Consult Reason/Comments: Medical management Do you want consulting provider notified?: Yes Primary care physician: Kale Aggarwal [facility] Hospital Course: The patient presented on the day of admission as per their operative note. She had severe spinal stenosis with neurogenic claudication and underwent decompression and fusion at L3 4 L4 5 as per her operative note. She feels her legs are doing very well. She has been able to increase her mobility. Pain in his back is well controlled now with oral medication. Physical Exam The incision site is clean dry and intact. There is no erythema no drainage. There is no purulence no evidence of infection. There is no significant swelling and there is no drainage. Abdomen soft and nontender. Chest has good excursion with deep inspiration and expiration. The patient has active and passive range of motion intact at the upper and lower extremities. There is no acute change in neurologic status. She has sustained dorsal flexion plantar flexion and EHL intact. Her thighs and calf soft nontender. Hospital Course Postoperative day #4 status post minimally invasive decompression and fusion L3 4 L4 5 for severe spinal stenosis with neurogenic claudication and lower extremity radiculopathy. Patient is doing nicely and has been making good progress. The patient has been making good progress postoperatively. They have completed the prophylactic antibiotics without any signs or symptoms of infection. The patient has been able to advance their diet, and is tolerating diet adequately. She has been able have a bowel movement her stomach is doing well. The pain was initially controlled with IV medications and is now controlled appropriately with oral medications. The patient has been able to increase their mobilization. She has been walking in the hallways without assistance and just standing next to her well she uses a walker. The patient has progressed appropriately. I think they are in good stable condition for discharge today. They will be sent home with appropriate prescriptions. I answered their questions to the best of my ability in a language that they can understand and they are agreeable with the plan. They will follow up as directed in approximately 2 weeks or sooner if she is having any problems. Patient Condition at Discharge: Good Plan - Discharge Summary Discharge Rx Participant: No New Discharge Prescriptions: New Hydrocodone/Acetaminophen [[place] 5-325] 1 - 2 each PO Q6HR PRN #56 tab PRN Reason: Pain No Action Ferrous Sulfate [Feosol] 325 mg PO BID metFORMIN HCL 1,000 mg PO BID PARoxetine [Paxil] 20 mg PO QAM rOPINIRole HCL [Requip] 1 mg PO HS Lisinopril [Zestril] 20 mg PO HS Warfarin [Coumadin] 6 mg PO MOTH Warfarin [Coumadin] 5 mg PO SUTUWEFRSA Bisoprolol-Hctz 5-6.25 mg [Ziac 5-6.25] 1 each PO QAM [place]-3 Fatty Acids/Fish Oil [Fish Oil 1,000 mg Softgel] 1 each PO DAILY Garlic 1 each PO DAILY Glucos Sul 2Kcl/MSM/Chond/C/Mn [Glucosamine Chondroitin Cap] 1 each PO DAILY Acetaminophen Tab [Tylenol Tab] 1,000 mg PO Q6HR PRN PRN Reason: Pain Glimepiride [Amaryl] 2 mg PO DAILY Discharge Medication List Ferrous Sulfate [Feosol] 325 mg PO BID 02/15/15 [History] PARoxetine [Paxil] 20 mg PO QAM 02/15/15 [History] metFORMIN HCL 1,000 mg PO BID 02/15/15 [History] Bisoprolol-Hctz 5-6.25 mg [Ziac 5-6.25] 1 each PO QAM 04/08/16 [History] Garlic 1 each PO DAILY 04/08/16 [History] Lisinopril [Zestril] 20 mg PO HS 04/08/16 [History] [place]-3 Fatty Acids/Fish Oil [Fish Oil 1,000 mg Softgel] 1 each PO DAILY 04/08/16 [History] Warfarin [Coumadin] 5 mg PO SUTUWEFRSA 04/08/16 [History] Warfarin [Coumadin] 6 mg PO MOTH 04/08/16 [History] rOPINIRole HCL [Requip] 1 mg PO HS 04/08/16 [History] Glucos Sul 2Kcl/MSM/Chond/C/Mn [Glucosamine Chondroitin Cap] 1 each PO DAILY 02/02/19 [History] Acetaminophen Tab [Tylenol Tab] 1,000 mg PO Q6HR PRN 02/03/19 [History] Glimepiride [Amaryl] 2 mg PO DAILY 02/04/19 [History] Hydrocodone/Acetaminophen [[place] 5-325] 1 - 2 each PO Q6HR PRN #56 tab 02/11/19 [Rx] Follow up Appointment(s)/Referral(s): Quinn Ferro DO [Doctor of Osteopathic Medicine] - 2 Weeks (Patient may follow-up with Bear Rutledge PA-C or Dr. Asaf Ferro at [facility] in 2-3 weeks following discharge. ) Activity/Diet/Wound Care/Special Instructions: 1. Patient may shower with Tegaderm and silver dressing intact. 2. Patient may remove Tegaderm dressing on Wednesday 02/14 and shower without a dressing at that time. 3. Patient should keep Steri-Strips intact and allow them to fall off naturally. 4. Patient should refrain from driving until at least after their first follow- up appointment in the office. 5. Patient should avoid excessive bending, twisting, and lifting; no lifting greater than 10 pounds 6. Take medications as prescribed 7. Do not soak in tub Discharge Disposition: HOME SELF-CARE
[2019-02-13] MEDS ORDERED: WARFARIN 7.5 MG TAB PO ONE (18:00)
--- NOTE | 2019-02-14 00:02 | P.PN ---
Progress Note - Text Progress Note Date: 02/14/19 Interval history: This is a pleasant 72-year-old patient of Dr. Aggarwal. Chronic stable medical conditions include atrial fibrillation, diabetes, GERD, hypertension, osteoarthritis. Patient had severe spinal stenosis and L3-L4 and L4-L5 level with neurogenic claudication bilateral lower extremity radiculopathy lower back pain. Patient underwent discectomy and associated surgical intervention by Dr. Ferro. This was done on February 09. Today-doing much better. Up and about. Up in the hallway. Pain is much better controlled. Eating well. Had a bowel movement. Review of systems: Was done for constitutional, cardiovascular, GI, pulmonary. Musculoskeletal relevant finding as above Current medications reviewed in today's electronic records Physical examination: VITAL: 97.6, 80, 16, 154/74, 96% room air GENERAL: Sitting up in the chair, comfortable EYES: Pupils equal. Conjunctiva normal. HEENT: External appearance of nose and ears normal, oral cavity grossly normal. NECK: JVD not raised; masses not palpable. HEART: First and second heart sounds are normal; no edema. LUNGS: Respiratory rate normal; clear to auscultation. ABDOMEN: Soft, nontender, liver spleen not palpable, no masses palpable. PSYCH: Alert and oriented x3; mood and affect normal. INVESTIGATIONS, reviewed in the clinical context: Accu-Cheks noted Previous testing White count 6.8 hemoglobin 10.4 platelets 133 potassium 4.7 creatinine 0.79 Accu-Cheks 252, 184 Preop hemoglobin was 11.7 EKG tracing personally reviewed by me-from January 28 shows right bundle-branch block, sinus rhythm Assessment: -Severe spinal stenosis L3-L4, L4-L5 with neurogenic claudication, bilateral lower extremity radiculopathy and low back pain resulting in lumbar surgery done on February 09 -Paroxysmal atrial fibrillation, for which patient is chronically on Coumadin -Diabetes mellitus type 2 on oral hypoglycemic -Essential hypertension -Primary osteoarthritis -Obesity BMI 30.2 -Restless leg syndrome Plan: Doing well. If discharged, should follow with the family doctor. Thank you Dr. Ferro
[2019-02-14] MEDS ORDERED: WARFARIN 7.5 MG TAB PO SCH (10:25)
--- NOTE | 2019-02-16 06:57 | CDI ---
Documentation Clarification Form Date: 02/16/19 From: Pantera Serna Phone: call [phone] Admit Date: 02/09/2019 8:46:00 AM Patient Name: Vale Davila Visit Number: [id number] Discharge Date: 02/13/2019 4:13:00 PM ATTENTION: The Clinical Documentation Specialists (CDI) and [facility] Coding Staff appreciate your assistance in clarifying documentation. Please respond to the clarification below the line at the bottom and electronically sign. The CDI & [facility] Coding staff will review the response and follow-up if needed. Please note: Queries are made part of the Legal Health Record. If you have any questions, please contact the author of this message via ITS. Dr. Quinn Ferro, A diagnosis of anemia lacks specificity to accurately reflect your patients severity of condition and clarification is needed. History/Risk Factors: Radiculopathy, lumbar stenosis.Spinal fusion. Hemoglobin: 10.4 Treatment: Approximately 550 mL with 219 given back through Cell Saver In OP report, stated " Estimated blood loss 550 ml with 219 given back through cell saver". In order to capture the severity of condition, please clarify the type of anemia and etiology if known: Acute blood loss anemia Other, please specify Unable to determine The patient had postoperatively had hemoglobin of 10.4. Her anemia was due to acute blood loss anemia from her surgery. AMITA
== END 2019-02-13 16:13 | disposition home health service (06) | DRG 454 ==
LOC: 2ORMAIN 08:46 → 4SSUR 15:54
PROVIDERS: ADMIT Orthopaedic Surgery Orthopaedic Surgery of the Spine; ATTEND Orthopaedic Surgery Orthopaedic Surgery of the Spine
PROC: 0SG1071 Fusion of 2 or more Lumbar Vertebral Joints with Autologous Tissue Substitute, Posterior Approach, Posterior Column, Open Approach (ICD-10-PCS; principal; 2019-02-09 10:05)
PROC: 0SG10AJ Fusion of 2 or more Lumbar Vertebral Joints with Interbody Fusion Device, Posterior Approach, Anterior Column, Open Approach (ICD-10-PCS; principal; 2019-02-09 10:05)
PROC: 00NY0ZZ Release Lumbar Spinal Cord, Open Approach (ICD-10-PCS; principal; 2019-02-09 10:05)
PROC: 30233H0 Transfusion of Autologous Whole Blood into Peripheral Vein, Percutaneous Approach (ICD-10-PCS; principal; 2019-02-09 10:05)
PROC: 0ST20ZZ Resection of Lumbar Vertebral Disc, Open Approach (ICD-10-PCS; principal; 2019-02-09 10:05)
PROC: 01NB0ZZ Release Lumbar Nerve, Open Approach (ICD-10-PCS; principal; 2019-02-09 10:05)
DX: M48.062 Spinal stenosis, lumbar region with neurogenic claudication (principal); D62 Acute posthemorrhagic anemia; M51.16 Intervertebral disc disorders with radiculopathy, lumbar region; I45.10 Unspecified right bundle-branch block; E11.9 Type 2 diabetes mellitus without complications; M47.26 Other spondylosis with radiculopathy, lumbar region; G25.81 Restless legs syndrome; E66.9 Obesity, unspecified; I48.0 Paroxysmal atrial fibrillation; K21.9 Gastro-esophageal reflux disease without esophagitis; M40.56 Lordosis, unspecified, lumbar region; M47.27 Other spondylosis with radiculopathy, lumbosacral region; M51.17 Intervertebral disc disorders with radiculopathy, lumbosacral region; I11.9 Hypertensive heart disease without heart failure; M40.46 Postural lordosis, lumbar region; E78.2 Mixed hyperlipidemia; F32.9 Major depressive disorder, single episode, unspecified; M19.91 Primary osteoarthritis, unspecified site; Z96.653 Presence of artificial knee joint, bilateral; Z87.01 Personal history of pneumonia (recurrent); Z68.30 Body mass index [BMI] 30.0-30.9, adult; Z90.89 Acquired absence of other organs; Z90.711 Acquired absence of uterus with remaining cervical stump; Z98.890 Other specified postprocedural states; Z98.42 Cataract extraction status, left eye; Z98.41 Cataract extraction status, right eye; Z80.0 Family history of malignant neoplasm of digestive organs; Z81.8 Family history of other mental and behavioral disorders; Z82.49 Family history of ischemic heart disease and other diseases of the circulatory system; Z79.84 Long term (current) use of oral hypoglycemic drugs; Z79.01 Long term (current) use of anticoagulants; Z79.899 Other long term (current) drug therapy; Z97.3 Presence of spectacles and contact lenses; Z83.3 Family history of diabetes mellitus; Z87.59 Personal history of other complications of pregnancy, childbirth and the puerperium; Z88.0 Allergy status to penicillin
CPT/HCPCS: 36415; 72100; 80048; 85025; 85610; 86850; 86900; 86901; 94760

== ENCOUNTER → 2021-03-19 | Day surgery (SDC) | payer MEDICARE ==
[2021-03-05 11:11] VITALS: BMI 30.6
[~2021-03-19] MED LIST changes: -BACITRACIN 50,000 UNIT, POLYMYXIN B 500,000 UNIT in SODIUM CHLORIDE 0.9% IRRIGATIO 1,00... IRRIGATION ONE; +LACTATED RINGERS 1,000 ML IV SCH; +LIDOCAINE 1% (10MG/ML) FOR IV START INTRADERMA PRN; +PROPOFOL 10 MG/ML 20 ML VIAL IV ONE
[2021-03-19 06:48] VITALS: TEMP 97
[2021-03-19 07:03] LABS: Glucose,Whole Blood 149 mg/dL (75-99)
--- NOTE | 2021-03-19 07:19 | P.PCN ---
Date of Procedure: 03/19/21 Procedure(s) Performed: BRIEF HISTORY: Patient is a 75-year-old pleasant female scheduled for an elective colonoscopy as a part of evaluation of prior history of colon polyps. Last colonoscopy was 5 years ago. She also has family history of colon cancer diagnosed in her mother at age 70. PROCEDURE PERFORMED: Colonoscopy with biopsy and snare polypectomy. PREOPERATIVE DIAGNOSIS: History of colon polyps and family history of colon cancer. IV sedation per Anesthesia. PROCEDURE: After informed consent was obtained, the patient, was brought into the endoscopy unit. IV sedation was administered by Anesthesia under continuous monitoring. Digital rectal examination was normal. Initially the Olympus CF-160 flexible video colonoscope was then inserted in the rectum, gradually advanced into the cecum without any difficulty. Careful examination was performed as the scope was gradually being withdrawn. Ileocecal valve and the appendiceal orifice were visualized and appeared normal. Prep was excellent. Mucosa of the cecum, and a 3 mm polyp that was removed by cold biopsy. In the transverse colon there was a 5 mm polyp that was removed by snare polypectomy. Rest of the ascending colon, transverse colon, descending colon, sigmoid colon, and rectum appeared normal. Retroflexion was performed in the rectum and no lesions were seen. The patient tolerated the procedure well. IMPRESSION: 3 mm cecal polyp status post cold biopsy 5 mm transverse colon polyp status post snare polypectomy RECOMMENDATIONS: Findings of this examination were discussed with the patient as well as a family. She was advised to follow with the biopsy results and have a repeat colonoscopy in 5 years from now because of the family history of colon cancer.
[2021-03-19 07:40] VITALS: BP 125/55; PULSE 68; RESP 16
== END ==
LOC: ORWHC2ENDO 06:00
PROVIDERS: ATTEND Internal Medicine Gastroenterology
DX: Z12.11 Encounter for screening for malignant neoplasm of colon (principal); D12.0 Benign neoplasm of cecum; D12.3 Benign neoplasm of transverse colon; K21.9 Gastro-esophageal reflux disease without esophagitis; I48.91 Unspecified atrial fibrillation; I10 Essential (primary) hypertension; Z86.010 Personal history of colon polyps; Z80.0 Family history of malignant neoplasm of digestive organs; E78.5 Hyperlipidemia, unspecified; E11.9 Type 2 diabetes mellitus without complications; M19.90 Unspecified osteoarthritis, unspecified site; Z79.01 Long term (current) use of anticoagulants; Z79.84 Long term (current) use of oral hypoglycemic drugs; Z79.899 Other long term (current) drug therapy
CPT/HCPCS: 88305; 45380; 45385; J2704

== ENCOUNTER → 2021-06-03 | Outpatient (CLI) | payer MEDICARE ==
[2021-06-03 14:48] LABS: Anion Gap 15.6 mmol/L (10.00-18.00); Blood Urea Nitrogen 20.6 mg/dL (9.0-27.0); Carbon Dioxide 23.1 mmol/L (20.0-27.5); Magnesium 1.8 mg/dL (1.5-2.4); Non-African American GFR(CKD) 68.2 (60.0-200.0); Potassium 4.2 mmol/L (3.5-5.5)
[2021-06-03 15:02] LABS: HCT 23.2 % (37.2-46.3); HGB 6.6 g/dL (12.0-15.0); MCH 20.9 pg (27.0-32.0); MCHC 28.4 g/dL (32.0-37.0); MCV 73.4 fL (80.0-97.0); Mean Platelet Volume 10.5 fL (9.5-12.2); NRBC Per 100 WBC 0.4 /100 WBCS (0.0-0.0); Platelet Count 208 X 10*3/uL (140-440); RBC 3.16 X 10*6/uL (4.10-5.20); RDW 16.1 % (11.5-14.5); WBC 5.51 X 10*3/uL (4.50-10.00)
[2021-06-04 16:54] LABS: Coronavirus SARS CoV-2 Not Detected (Not Detected)
== END | disposition home or self-care (01) ==
LOC: LABPAT 09:45
PROVIDERS: ATTEND Internal Medicine Clinical Cardiac Electrophysiology
DX: Z01.812 Encounter for preprocedural laboratory examination (principal)
CPT/HCPCS: 80051; 82565; 83735; 84520; 85027; U0003

== ENCOUNTER 2021-06-04 15:22 | Observation (INO) | payer MEDICARE ==
--- NOTE | 2021-06-04 16:37 | ED ---
Weakness HPI - General Chief complaint: Weakness Stated complaint: low hemoglobin Time Seen by Provider: 06/04/21 16:06 Source: patient, RN notes reviewed Mode of arrival: ambulatory Limitations: no limitations - History of Present Illness Initial comments: This is a pleasant 75-year-old female with history of atrial fibrillation, diabetes mellitus, hypertension, reflux. Patient is on warfarin for long- standing atrial fibrillation. Patient due to have a cardiac ablation by Dr. Delacruz on . Patient went for preoperative laboratory work was found to have hemoglobin of 6.6. Patient was sent here for evaluation. Patient's complaint is extreme fatigue which has been going on for about 3 months. She also has had intermittent dark stools. Has some shortness of breath with exertion. No chest pain. No headache, no fever or chills, no changes in vision or hearing, no sore throat or difficulty with speech, no neck pain, no chest pain, no abdominal pain, no nausea or vomiting, no changes in urination or bowel movements, no numbness or tingling, no extremity pain, no skin rashes or lesions. MD Complaint: generalized weakness - Related Data Home Medications Medication Instructions Recorded Confirmed PARoxetine [Paxil] 20 mg PO DAILY 02/15/15 06/04/21 metFORMIN HCL [Glucophage] 1,000 mg PO BID 02/15/15 06/04/21 Warfarin [Coumadin] 5 mg PO DAILY 04/08/16 06/04/21 Glucos Sul 2Kcl/MSM/Chond/C/Mn 1 cap PO DAILY 02/02/19 06/04/21 [Glucosamine Chondroitin Cap] Glimepiride [Amaryl] 2 mg PO DAILY 02/04/19 06/04/21 Ergocalciferol (Vitamin D2) 1,250 mcg PO TH 03/05/21 06/04/21 [Drisdol (50,000 Iu)] Furosemide [Lasix] 40 mg PO DAILY 03/05/21 06/04/21 Magnesium 250 mg PO DAILY 03/05/21 06/04/21 Metoprolol Succinate (ER) [Toprol 100 mg PO DAILY 03/05/21 06/04/21 Xl] Omeprazole 20 mg PO DAILY 03/05/21 06/04/21 Flecainide [Tambocor] 50 mg PO BID 06/04/21 06/04/21 Garlic 1,000 Mg 1,000 mg PO DAILY 06/04/21 06/04/21 Metoprolol Succinate [Toprol XL] 50 mg PO DAILY 06/04/21 06/04/21 Potassium Gluconate [Potassium 99 mg PO DAILY 06/04/21 06/04/21 Gluconate ER] Warfarin [Coumadin] 1 mg PO MOWEFR 06/04/21 06/04/21 rOPINIRole HCL [Requip] 0.5 mg PO TID 06/04/21 06/04/21 Allergies Allergy/AdvReac Type Severity Reaction Status Date / Time No Known Allergies Allergy Verified 06/04/21 17:16 Review of Systems ROS Statement: Those systems with pertinent positive or pertinent negative responses have been documented in the HPI. ROS Other: All systems not noted in ROS Statement are negative. Past Medical History Past Medical History: Atrial Fibrillation, Diabetes Mellitus, GERD/Reflux, Hypertension, Osteoarthritis (OA), Pneumonia Additional Past Medical History / Comment(s): herniated disc,ddd sciatic nerve pain, shingles 1994 History of Any Multi-Drug Resistant Organisms: None Reported Past Surgical History: Adenoidectomy, Back Surgery, Heart Catheterization, Hysterectomy, Joint Replacement, Tonsillectomy Additional Past Surgical History / Comment(s): lt knee arthrocopy, shai knee replacements d&cx2, 2 ectopic pregnancies, partial hyst, rt breast bx-neg, cystocele/rectocele repair, shai carpal tunnel; cataracts Past Anesthesia/Blood Transfusion Reactions: No Reported Reaction Additional Past Anesthesia/Blood Transfusion Reaction / Comment(s): . Past Psychological History: No Psychological Hx Reported Smoking Status: Never smoker Past Alcohol Use History: None Reported Past Drug Use History: None Reported - Past Family History Mother Family Medical History: Cancer, Dementia Additional Family Medical History / Comment(s): irregular heart rythm, colon cancer, lived till she was 92 years old Father Family Medical History: Myocardial Infarction ([place]) Additional Family Medical History / Comment(s): at age 62 from massive mi General Exam - General Exam Comments Initial Comments: Pale-appearing elderly female in no distress. Patient does not appear to be ill or toxic. No distress as she is sitting in the bed. Limitations: no limitations General appearance: alert, in no apparent distress Head exam: Present: atraumatic, normocephalic, normal inspection Eye exam: Present: normal appearance, PERRL, EOMI. Absent: scleral icterus, conjunctival injection, periorbital swelling ENT exam: Present: normal exam, mucous membranes moist Neck exam: Present: normal inspection, full ROM. Absent: tenderness, meningismus, lymphadenopathy Respiratory exam: Present: normal lung sounds bilaterally. Absent: respiratory distress, wheezes, rales, rhonchi, stridor Cardiovascular Exam: Present: regular rate, normal rhythm, normal heart sounds, systolic murmur. Absent: diastolic murmur, rubs, gallop, clicks GI/Abdominal exam: Present: soft, normal bowel sounds. Absent: distended, tenderness, guarding, rebound, rigid Rectal exam: Present: normal inspection, normal rectal tone, heme (+) stool, other (Chaperoned by female RN). Absent: decreased rectal tone, black stool, bloody stool, fecal impaction, hemorrhoids Extremities exam: Present: normal inspection, full ROM, normal capillary refill. Absent: tenderness, pedal edema, joint swelling, calf tenderness Back exam: Present: normal inspection Neurological exam: Present: alert, oriented X3, CN II-XII intact Psychiatric exam: Present: normal affect, normal mood Skin exam: Present: warm, dry, intact, normal color. Absent: rash Course Vital Signs 06/04/21 06/04/21 15:48 16:06 Temperature 98.3 F Pulse Rate 68 70 Respiratory 18 18 Rate Blood Pressure 131/60 168/71 O2 Sat by Pulse 98 97 Oximetry - Reevaluation(s) Reevaluation #1: 06/04/21 17:35 Medical record is reviewed Symptoms are clinically unchanged Patient is informed of results and questions answered Patient in no distress EKG Findings - EKG Comments: EKG Findings:: EKG done at 1620 and reviewed the ED attending physician reveals left axis deviation, right bundle-branch block, no acute ST or T-wave changes, OK interval 236 ms, first-degree AV block, QRS duration 160 ms, QTC is normal. Wide QRS morphology. Medical Decision Making - Medical Decision Making Patient presented with 2-3 months of generalized fatigue. Patient states that she had preoperative laboratory work done which showed a hemoglobin of 6.6 yest erday. Patient sent for blood transfusion by her primary care physician. Patient essentially asymptomatic otherwise. No shortness of breath. No chest pain. No bright red blood per rectum. No melanotic stools. Patient is on warfarin. The case was discussed in detail with ED attending physician. Presentation, findings, treatment plan discussed in detail. Call placed for admitting physician - Lab Data Result diagrams: 06/04/21 16:30 06/04/21 16:30 Lab Results 06/04/21 06/04/21 06/04/21 Range/Units 16:15 16:25 16:30 WBC 5.9 (3.8-10.6) k/uL RBC 3.03 L (3.80-5.40) m/uL Hgb 6.5 L* (11.4-16.0) gm/dL Hct 22.1 L (34.0-46.0) % MCV 72.9 L (80.0-100.0) fL MCH 21.5 L (25.0-35.0) pg MCHC 29.5 L (31.0-37.0) g/dL RDW 15.2 (11.5-15.5) % Plt Count 194 (150-450) k/uL MPV 7.6 Neutrophils % 58 % Lymphocytes % 27 % Monocytes % 6 % Eosinophils % 6 % Basophils % 1 % Neutrophils # 3.4 (1.3-7.7) k/uL Lymphocytes # 1.6 (1.0-4.8) k/uL Monocytes # 0.4 (0-1.0) k/uL Eosinophils # 0.4 (0-0.7) k/uL Basophils # 0.0 (0-0.2) k/uL Hypochromasia Marked Poikilocytosis Moderate Microcytosis Slight PT (9.0-12.0) sec INR (<1.2) APTT (22.0-30.0) sec Sodium (137-145) mmol/L Potassium (3.5-5.1) mmol/L Chloride (98-107) mmol/L Carbon Dioxide (22-30) mmol/L Anion Gap mmol/L BUN (7-17) mg/dL Creatinine (0.52-1.04) mg/dL Est GFR (CKD-EPI)AfAm (>60 ml/min/1.73 sqM) Est GFR (CKD-EPI)NonAf (>60 ml/min/1.73 sqM) Glucose (74-99) mg/dL Calcium (8.4-10.2) mg/dL Phosphorus (2.5-4.5) mg/dL Magnesium (1.6-2.3) mg/dL Total Bilirubin (0.2-1.3) mg/dL AST (14-36) U/L ALT (4-34) U/L Alkaline Phosphatase (38-126) U/L Troponin I (0.000-0.034) ng/mL NT-Pro-B Natriuret Pep pg/mL Total Protein (6.3-8.2) g/dL Albumin (3.5-5.0) g/dL Stool Occult Blood Positive H (Negative) Blood Type B Positive Blood Type Recheck B Pos Bld Type Recheck Status No Antibody Screen NEGATIVE Crossmatch See Detail Spec Expiration Date 06/07/2021 - 232406/04/21 06/04/21 06/04/21 Range/Units 16:30 16:30 16:30 WBC (3.8-10.6) k/uL RBC (3.80-5.40) m/uL Hgb (11.4-16.0) gm/dL Hct (34.0-46.0) % MCV (80.0-100.0) fL MCH (25.0-35.0) pg MCHC (31.0-37.0) g/dL RDW (11.5-15.5) % Plt Count (150-450) k/uL MPV Neutrophils % % Lymphocytes % % Monocytes % % Eosinophils % % Basophils % % Neutrophils # (1.3-7.7) k/uL Lymphocytes # (1.0-4.8) k/uL Monocytes # (0-1.0) k/uL Eosinophils # (0-0.7) k/uL Basophils # (0-0.2) k/uL Hypochromasia Poikilocytosis Microcytosis PT 25.3 H (9.0-12.0) sec INR 2.5 H (<1.2) APTT 29.3 (22.0-30.0) sec Sodium 135 L (137-145) mmol/L Potassium 3.8 (3.5-5.1) mmol/L Chloride 102 (98-107) mmol/L Carbon Dioxide 24 (22-30) mmol/L Anion Gap 9 mmol/L BUN 26 H (7-17) mg/dL Creatinine 0.92 (0.52-1.04) mg/dL Est GFR (CKD-EPI)AfAm 71 (>60 ml/min/1.73 sqM) Est GFR (CKD-EPI)NonAf 61 (>60 ml/min/1.73 sqM) Glucose 105 H (74-99) mg/dL Calcium 8.8 (8.4-10.2) mg/dL Phosphorus 3.3 (2.5-4.5) mg/dL Magnesium 1.6 (1.6-2.3) mg/dL Total Bilirubin 0.4 (0.2-1.3) mg/dL AST 33 (14-36) U/L ALT 24 (4-34) U/L Alkaline Phosphatase 69 (38-126) U/L Troponin I <0.012 (0.000-0.034) ng/mL NT-Pro-B Natriuret Pep pg/mL Total Protein 6.3 (6.3-8.2) g/dL Albumin 3.7 (3.5-5.0) g/dL Stool Occult Blood (Negative) Blood Type Blood Type Recheck Bld Type Recheck Status Antibody Screen Crossmatch Spec Expiration Date 06/04/21 Range/Units 16:30 WBC (3.8-10.6) k/uL RBC (3.80-5.40) m/uL Hgb (11.4-16.0) gm/dL Hct (34.0-46.0) % MCV (80.0-100.0) fL MCH (25.0-35.0) pg MCHC (31.0-37.0) g/dL RDW (11.5-15.5) % Plt Count (150-450) k/uL MPV Neutrophils % % Lymphocytes % % Monocytes % % Eosinophils % % Basophils % % Neutrophils # (1.3-7.7) k/uL Lymphocytes # (1.0-4.8) k/uL Monocytes # (0-1.0) k/uL Eosinophils # (0-0.7) k/uL Basophils # (0-0.2) k/uL Hypochromasia Poikilocytosis Microcytosis PT (9.0-12.0) sec INR (<1.2) APTT (22.0-30.0) sec Sodium (137-145) mmol/L Potassium (3.5-5.1) mmol/L Chloride (98-107) mmol/L Carbon Dioxide (22-30) mmol/L Anion Gap mmol/L BUN (7-17) mg/dL Creatinine (0.52-1.04) mg/dL Est GFR (CKD-EPI)AfAm (>60 ml/min/1.73 sqM) Est GFR (CKD-EPI)NonAf (>60 ml/min/1.73 sqM) Glucose (74-99) mg/dL Calcium (8.4-10.2) mg/dL Phosphorus (2.5-4.5) mg/dL Magnesium (1.6-2.3) mg/dL Total Bilirubin (0.2-1.3) mg/dL AST (14-36) U/L ALT (4-34) U/L Alkaline Phosphatase (38-126) U/L Troponin I (0.000-0.034) ng/mL NT-Pro-B Natriuret Pep 441 pg/mL Total Protein (6.3-8.2) g/dL Albumin (3.5-5.0) g/dL Stool Occult Blood (Negative) Blood Type Blood Type Recheck Bld Type Recheck Status Antibody Screen Crossmatch Spec Expiration Date When compared to previous EKG there are: no significant change - Radiology Data Radiology results: report reviewed, image reviewed Disposition Clinical Impression: Symptomatic anemia, Fatigue, Occult blood positive stool Disposition: ADMITTED IP TO THIS [facility] Referrals: Kale Aggarwal MD [Primary Care Provider] - 1-2 days
[2021-06-04 16:56] LABS: Basophils % (A) 1 %; Eosinophils # (A) 0.4 k/uL (0-0.7); Eosinophils % (A) 6 %; HCT 22.1 % (34.0-46.0); Hypochromasia Marked; Lymphocytes # (A) 1.6 k/uL (1.0-4.8); Lymphocytes % (A) 27 %; MCH 21.5 pg (25.0-35.0); MCHC 29.5 g/dL (31.0-37.0); MCV 72.9 fL (80.0-100.0); Mean Platelet Volume 7.6; Microcytosis Slight; Monocytes # (A) 0.4 k/uL (0-1.0); Monocytes % (A) 6 %; Neutrophils # (A) 3.4 k/uL (1.3-7.7); Neutrophils % (A) 58 %; Platelet Count 194 k/uL (150-450); Poikilocytosis Moderate; RBC 3.03 m/uL (3.80-5.40); RDW 15.2 % (11.5-15.5); WBC 5.9 k/uL (3.8-10.6)
--- NOTE | 2021-06-04 17:02 | XR ---
EXAMINATION TYPE: XR chest 1V portable DATE OF EXAM: 06/04/2021 4:55 PM COMPARISON:Chest radiographs from 08/14/2018 TECHNIQUE: Frontal view of the chest. CLINICAL INDICATION:Female, 75 years old with history of weakness; FINDINGS: Lungs/Pleura: There is no evidence of pleural effusion, focal consolidation, or pneumothorax. Pulmonary vascularity: Unremarkable. Heart/mediastinum: Cardiomediastinal silhouette is prominent in size. Musculoskeletal: No acute osseous pathology. IMPRESSION: 1. No acute cardiopulmonary disease/process. 2. Similar cardiomegaly.
[2021-06-04 17:09] LABS: INR 2.5 (<1.2); Partial Thromboplastin Time 29.3 sec (22.0-30.0); Prothrombin Time 25.3 sec (9.0-12.0)
[2021-06-04 17:10] LABS: Albumin 3.7 g/dL (3.5-5.0); Calcium 8.8 mg/dL (8.4-10.2); Magnesium 1.6 mg/dL (1.6-2.3); Phosphorus 3.3 mg/dL (2.5-4.5); Potassium 3.8 mmol/L (3.5-5.1); Total Bilirubin 0.4 mg/dL (0.2-1.3); Total Protein 6.3 g/dL (6.3-8.2)
[2021-06-04 17:27] LABS: HGB 6.5 gm/dL (11.4-16.0)
[2021-06-04] MEDS ORDERED: ONDANSETRON 4 MG/2 ML VIAL IVP PRN (17:45)
[2021-06-04] MEDS ORDERED: ACETAMINOPHEN TAB 325 MG TAB PO PRN (17:45)
[2021-06-04] MEDS ORDERED: NALOXONE 0.4 MG/ML 1 ML VIAL IV PRN (17:45)
[2021-06-04] MEDS: PANTOPRAZOLE 40 MG/10 ML VIAL IVP SCH (21:54)
[2021-06-05 00:21] LABS: Appearance,Urine Clear (Clear); Bilirubin,Urine Negative (Negative); Blood,Urine Negative (Negative); Color,Urine Yellow; Glucose,Urine (UA) Negative (Negative); Hyaline Casts,Urine 1 /lpf (0-2); Ketones,Urine Negative (Negative); Leukocyte Esterase,Urine Trace (Negative); Mucus,Urine Rare /hpf; Nitrite,Urine Negative (Negative); PH, Urine 5.5 (5.0-8.0); Protein,Urine Negative (Negative); RBC,Urine 1 /hpf (0-5); Specific Gravity,Urine 1.025 (1.001-1.035); Squamous Epithelial Cell,Urine <1 /hpf (0-4); Urobilinogen,Urine <2.0 mg/dL (<2.0); WBC,Urine 1 /hpf (0-5)
[2021-06-05] MEDS: FLECAINIDE 50 MG TAB PO SCH ×3 (07:20→21:25)
[2021-06-05 07:23] LABS: Glucose,Whole Blood 149 mg/dL (75-99)
[2021-06-05] MEDS ORDERED: NON FORMULARY DRUG (Omeprazole [Omeprazole] 20 MG Capsule) PO SCH (09:00)
[2021-06-05] MEDS: PARoxetine 20 MG TAB PO SCH (09:24)
[2021-06-05] MEDS: METOPROLOL SUCCINATE (ER) 50 MG TAB.ER.24H PO SCH (09:24)
[2021-06-05] MEDS: METOPROLOL SUCCINATE (ER) 100 MG TAB.ER.24H PO SCH (09:24)
[2021-06-05] MEDS: metFORMIN 500 MG TAB PO SCH ×2 (09:24→21:03)
[2021-06-05] MEDS: PANTOPRAZOLE 40 MG/10 ML VIAL IVP SCH ×2 (09:25→21:03)
[2021-06-05] MEDS: FUROSEMIDE 40 MG TAB PO SCH (09:28)
[2021-06-05 10:09] LABS: HGB 7.6 g/dL (12.0-15.0); MCH 22.8 pg (27.0-32.0); MCHC 30.4 g/dL (32.0-37.0); MCV 75.1 fL (80.0-97.0); Mean Platelet Volume 10.3 fL (9.5-12.2); NRBC Per 100 WBC 0 /100 WBCS (0.0-0.0); Platelet Count 178 X 10*3/uL (140-440); RBC 3.33 X 10*6/uL (4.10-5.20); RDW 18.3 % (11.5-14.5); WBC 5.48 X 10*3/uL (4.50-10.00)
--- NOTE | 2021-06-05 10:42 | P.CRDCN ---
History of Present Illness Consult date: 06/05/21 History of present illness: HISTORY OF PRESENT ILLNESS: This is a 75-year-old female with a past medical history significant for paroxysmal atrial fibrillation, aortic stenosis, and diabetes. Patient follows in the office with Dr. Winkler and Dr. Grant. We have been asked to see the patient in consultation for atrial fibrillation and anemia. Patient examined at the bedside in the emergency room. Patient states she is scheduled to have an A. fib ablation tomorrow with Dr. Grant. Patient underwent some preoperative blood work and was found to be anemic with a hemoglobin of 6.6. The patient does report that she has been having some fatigue over the past month which she has attributed to her atrial fibrillation. She also reports having dark stools for the past 2-3 weeks. She denies having any bright red blood. The patient is prescribed warfarin on an outpatient basis for her atrial fibrillation. The patient currently denies any shortness of breath. She denies any chest pain or pressure. She denies any dizziness or lightheadedness. The patient did receive 2 units packed RBCs. Repeat hemoglobin this morning is 7.6. It is noted that the patient did have a colonoscopy in February [address] Benjamin with removal of polyps. EKG reveals sinus mechanism with right bundle branch block. Chest xray no acute cardiopulmonary disease or process. Similar cardiomegaly Laboratory data: WBC 5.48. Hemoglobin 7.6. Platelet count 178. INR 2.5. Sodium 135. Potassium 3.8. BUN 26. Creatinine 0.92. Troponin negative 1. ProBNP 441. Current home cardiac medications include warfarin 1 mg Thursday and 5 mg daily, flecainide 50 mg twice a day, metoprolol succinate 150 mg daily, Lasix 40 mg daily Most recent echocardiogram obtained in November 2020 at the cardiology office revealing ejection fraction 60%, mild aortic regurgitation, moderate aortic stenosis, mild mitral regurgitation, mild mitral stenosis, mild tricuspid regurgitation Patient underwent Lexiscan stress test in February 2021 which was negative for reversible ischemia REVIEW OF SYSTEMS: At the time of my exam: CONSTITUTIONAL: Denies fever or chills. HEENT: Denies blurred vision, vision changes, or eye pain. Denies hemoptysis CARDIOVASCULAR: Denies chest pain. Denies orthopnea. Denies PND. Denies pa lpitations RESPIRATORY: Denies shortness of breath. GASTROINTESTINAL: Denies abdominal pain. Denies nausea or vomiting. HEMATOLOGIC: Denies bleeding disorders. GENITOURINARY: Denies any blood in urine. SKIN: Denies pruitis. Denies rash. PHYSICAL EXAM: VITAL SIGNS: Reviewed. GENERAL: Well-developed in no acute distress. HEENT: Head is normocephalic. Pupils are equal, round. Sclerae anicteric. Mucous membranes of the mouth are moist. Neck supple. No JVD or thyromegaly LUNGS: Respirations even and unlabored. Lungs essentially clear to auscultation bilaterally. HEART: Regular rate and rhythm. S1 and S2 heard. Systolic murmur noted. ABDOMEN: Soft. Nondistended. Nontender. EXTREMITIES: Normal range of motion. No clubbing or cyanosis. Peripheral pulses intact. No lower extremity edema NEUROLOGIC: Awake and alert. Oriented x 3. ASSESSMENT: Acute blood loss anemia Acute GI bleed with black stools x 2-3 weeks Paroxysmal atrial fibrillation, on anticoagulation with warfarin Moderate aortic stenosis Diabetes PLAN: Hold Warfarin Continue additional home cardiac medications Consult surgery for possible EGD. If endoscopy is recommended by surgical team, patient may proceed from a cardiac standpoint. Monitor hemoglobin Further recommendations pending patient course Nurse practitioner note has been reviewed by physician. Signing provider agrees with the documented findings, assessment, and plan of care. Past Medical History Past Medical History: Atrial Fibrillation, Diabetes Mellitus, GERD/Reflux, Hypertension, Osteoarthritis (OA), Pneumonia Additional Past Medical History / Comment(s): Afib/pt was to have cardiac abla tion 06/06/21, murmur/"weak valve", NIDDM type II, neuropathy R foot, past anemia, chronic low back pain/herniated discs/DDD past sciatica and radiculopathy, RLS, bilateral lower leg/pedal edema History of Any Multi-Drug Resistant Organisms: None Reported Past Surgical History: Adenoidectomy, Back Surgery, Bladder Surgery, Breast Surgery, Heart Catheterization, Hysterectomy, Joint Replacement, Tonsillectomy Additional Past Surgical History / Comment(s): Lumbar fusion, lt knee arthrocopy, shai knee replacements, bilateral carpal tunnel releases, d&cx2, 2 ectopic pregnancies/ surgery, partial hyst, rt breast bx-neg, cysto carlos enrique/rectocele repair, cataracts, colonoscopies/benign polypectomies. Past Anesthesia/Blood Transfusion Reactions: No Reported Reaction Additional Past Anesthesia/Blood Transfusion Reaction / Comment(s): PPt received blood without reaction. Smoking Status: Never smoker - Past Family History Mother Family Medical History: Cancer, Dementia Additional Family Medical History / Comment(s): irregular heart rythm, colon cancer, lived till she was 92 years old Father Family Medical History: Myocardial Infarction ([place]) Additional Family Medical History / Comment(s): at age 62 from massive mi Medications and Allergies Home Medications Medication Instructions Recorded Confirmed Type PARoxetine [Paxil] 20 mg PO DAILY 02/15/15 06/04/21 History metFORMIN HCL [Glucophage] 1,000 mg PO BID 02/15/15 06/04/21 History Warfarin [Coumadin] 5 mg PO DAILY 04/08/16 06/04/21 History Glucos Sul 2Kcl/MSM/Chond/C/Mn 1 cap PO DAILY 02/02/19 06/04/21 History [Glucosamine Chondroitin Cap] Glimepiride [Amaryl] 2 mg PO DAILY 02/04/19 06/04/21 History Ergocalciferol (Vitamin D2) 1,250 mcg PO TH 03/05/21 06/04/21 History [Drisdol (50,000 Iu)] Furosemide [Lasix] 40 mg PO DAILY 03/05/21 06/04/21 History Magnesium 250 mg PO DAILY 03/05/21 06/04/21 History Metoprolol Succinate (ER) [Toprol 100 mg PO DAILY 03/05/21 06/04/21 History Xl] Omeprazole 20 mg PO DAILY 03/05/21 06/04/21 History Flecainide [Tambocor] 50 mg PO BID 06/04/21 06/04/21 History Garlic 1,000 Mg 1,000 mg PO DAILY 06/04/21 06/04/21 History Metoprolol Succinate [Toprol XL] 50 mg PO DAILY 06/04/21 06/04/21 History Potassium Gluconate [Potassium 99 mg PO DAILY 06/04/21 06/04/21 History Gluconate ER] Warfarin [Coumadin] 1 mg PO MOWEFR 06/04/21 06/04/21 History rOPINIRole HCL [Requip] 0.5 mg PO TID 06/04/21 06/04/21 History Allergies Allergy/AdvReac Type Severity Reaction Status Date / Time No Known Allergies Allergy Verified 06/04/21 17:16 Physical Exam Vitals: Vital Signs Temp Pulse Resp BP Pulse Ox 06/05/21 07:30 96 06/05/21 07:00 69 18 145/64 95 06/05/21 05:10 98.2 F 64 21 144/65 96 06/05/21 04:10 67 22 141/63 96 06/05/21 03:10 98.1 F 61 17 146/75 96 06/05/21 02:10 69 14 142/86 98 06/05/21 01:13 76 18 142/76 96 06/04/21 23:33 98.0 F 77 18 148/79 97 06/04/21 21:30 98.0 F 71 18 148/79 97 06/04/21 21:21 98.1 F 71 16 133/55 98 06/04/21 21:20 98.1 F 71 16 141/74 97 06/04/21 19:09 98.2 F 77 16 169/78 06/04/21 19:08 97.8 F 68 18 171/65 98 06/04/21 19:00 76 18 117/63 100 06/04/21 18:39 98.0 F 68 18 143/71 06/04/21 18:35 98.8 F 69 18 144/87 06/04/21 18:29 98.0 F 66 18 159/70 06/04/21 18:17 98.0 F 75 18 168/82 98 06/04/21 16:06 70 18 168/71 97 06/04/21 15:48 98.3 F 68 18 131/60 98 Intake and Output 06/04/21 06/05/21 06/05/21 22:59 06:59 14:59 Intake Total 0 554 Balance 0 554 Intake: Blood Product 0 554 Rc Pheresis As-3 Unit 0 280 [id number] Rc Pheresis As-3 Unit 0 274 [id number] Other: Weight 83.915 kg 83.915 kg Results 06/05/21 04:46 06/04/21 16:30 Cardiac Enzymes 06/04/21 06/04/21 Range/Units 16:30 16:30 AST 33 (14-36) U/L Troponin I <0.012 (0.000-0.034) ng/mL Coagulation 06/04/21 Range/Units 16:30 PT 25.3 H (9.0-12.0) sec APTT 29.3 (22.0-30.0) sec CBC 06/04/21 06/05/21 Range/Units 16:30 04:46 WBC 5.9 5.48 (3.8-10.6) k/uL RBC 3.03 L 3.33 L (3.80-5.40) m/uL Hgb 6.5 L* 7.6 L (11.4-16.0) gm/dL Hct 22.1 L 25.0 L (34.0-46.0) % Plt Count 194 178 (150-450) k/uL Comprehensive Metabolic Panel 06/04/21 Range/Units 16:30 Sodium 135 L (137-145) mmol/L Potassium 3.8 (3.5-5.1) mmol/L Chloride 102 (98-107) mmol/L Carbon Dioxide 24 (22-30) mmol/L BUN 26 H (7-17) mg/dL Creatinine 0.92 (0.52-1.04) mg/dL Glucose 105 H (74-99) mg/dL Calcium 8.8 (8.4-10.2) mg/dL AST 33 (14-36) U/L ALT 24 (4-34) U/L Alkaline Phosphatase 69 (38-126) U/L Total Protein 6.3 (6.3-8.2) g/dL Albumin 3.7 (3.5-5.0) g/dL Current Medications Generic Name Dose Route Start Last Admin Trade Name Freq PRN Reason Stop Dose Admin Acetaminophen 650 mg 06/04/21 17:45 Acetaminophen Tab 325 Mg Tab PO Q6HR PRN Mild Pain or Fever > 100.5 Ergocalciferol 1,250 mcg 06/06/21 09:00 Ergocalciferol 1,250 Mcg (50,000 Iu) Capsule PO TH [facility] Flecainide Acetate 50 mg 06/04/21 22:30 06/05/21 09:23 Flecainide 50 Mg Tab PO 50 mg BID SARA Administration Furosemide 40 mg 06/05/21 09:00 06/05/21 09:28 Furosemide 40 Mg Tab PO 40 mg DAILY SARA Administration Metformin HCl 1,000 mg 06/05/21 09:00 06/05/21 09:24 Metformin 500 Mg Tab PO 1,000 mg BID SARA Administration Metoprolol Succinate 50 mg 06/05/21 09:00 06/05/21 09:24 Metoprolol Succinate (Er) 50 Mg Tab.Er.24h PO 50 mg DAILY SARA Administration Metoprolol Succinate 100 mg 06/05/21 09:00 06/05/21 09:24 Metoprolol Succinate (Er) 100 Mg Tab.Er.24h PO 100 mg DAILY SARA Administration Naloxone HCl 0.2 mg 06/04/21 17:45 Naloxone 0.4 Mg/Ml 1 Ml Vial IV Q2M PRN Opioid Reversal Ondansetron HCl 4 mg 06/04/21 17:45 Ondansetron 4 Mg/2 Ml Vial IVP Q8HR PRN Nausea And Vomiting Pantoprazole Sodium 40 mg 06/04/21 21:00 06/05/21 09:25 Pantoprazole 40 Mg/10 Ml Vial IVP 40 mg BID SARA Administration Paroxetine HCl 20 mg 06/05/21 09:00 06/05/21 09:24 Paroxetine 20 Mg Tab PO 20 mg DAILY SARA Administration Ropinirole HCl 0.5 mg 06/04/21 22:24 06/05/21 09:24 Ropinirole Hcl 0.25 Mg Tab PO 0.5 mg TID SARA Administration Intake and Output 06/04/21 06/05/21 06/05/21 22:59 06:59 14:59 Intake Total 0 554 Balance 0 554 Intake: Blood Product 0 554 Rc Pheresis As-3 Unit 0 280 [id number] Rc Pheresis As-3 Unit 0 274 [id number] Other: Weight 83.915 kg 83.915 kg Patient Weight 06/06/21 06:59 Weight 83.915 kg 06/05/21 04:46 06/04/21 16:30
[2021-06-05 11:12] LABS: Glucose,Whole Blood 294 mg/dL (75-99)
--- NOTE | 2021-06-05 14:17 | P.GSCN ---
History of Present Illness Consult date: 06/05/21 History of present illness: CHIEF COMPLAINT: Weakness and low hemoglobin HISTORY OF PRESENT ILLNESS: This is a 75-year-old female with a known history of atrial fibrillation anticoagulated with Coumadin. She was initially scheduled for a cardiac ablation with Dr. Grant on of this week. By her preoperative blood work showed a low hemoglobin of 6.6. Patient has complained of fatigue and black tarry stools for the past 2 weeks. She denies any abdominal pain. Denies any nausea or vomiting. Denies any heartburn or indigestion. Denies any NSAID use. Denies any prior history of GI bleed. Her last colonoscopy in February [address] Benjamin with results showing a cecal polyp status post cold biopsy and transverse colon polyp status post snare poly pectomy. Patient does report recently having her Coumadin dose increased. Patient did have a hemoglobin on admission of 6.5 and received 2 units of blood. Repeat hemoglobin this morning 7.6. PAST MEDICAL HISTORY: See list. PAST SURGICAL HISTORY: See list. MEDICATIONS: See list. ALLERGIES: See list. SOCIAL HISTORY: No illicit drug use. REVIEW OF SYSTEMS: CONSTITUTIONAL: Denies fever or chills. HEENT: Denies blurred vision, vision changes, or eye pain. Denies hemoptysis ENDOCRINE: Denies heat or cold intolerance. CARDIOVASCULAR: Denies chest pain or pressure. RESPIRATORY: No shortness of breath. GASTROINTESTINAL: Denies abdominal pain. Denies nausea or vomiting. NEURO: Denies history of seizures. PSYCH: No depression or suicidal ideation HEMATOLOGIC: Denies bleeding disorders. LYMPHATIC: The patient denies any lumps and bumps around the neck. GENITOURINARY: Denies any blood in urine or increased urinary frequency. MUSCULOSKELETAL: Denies myalgias. Denies joint swelling. Denies decreased range of motion beyond patients baseline. SKIN: Denies pruitis. Denies rash. PHYSICAL EXAM: VITAL SIGNS: Reviewed GENERAL: Well-developed in no acute distress. HEENT: No sclera icterus. Extraocular movements grossly intact. Moist buccal mucosa. Head is atraumatic, normocephalic. Hears conversational speech. No nasal drainage. NECK: Supple without lymphadenopathy. CHEST: Non-labored respirations and equal bilateral excursions. CARDIOVASCULAR: Palpable 2+ radial pulses. ABDOMEN: Soft. Nondistended. Nontender MUSCULOSKELETAL: No clubbing or cyanosis. NEUROLOGIC: No focal or lateralizing signs. Cranial nerves II through XII grossly intact. PSYCH: Appropriate affect. Alert and oriented to person, place and time. SKIN: Well perfused. Good skin turgor. LABORATORY DATA: WBC 5.48 hemoglobin 6.5 up to 7.6 platelets 178 INR 2.5 Sodium 135 potassium 3.8 creatinine 0.92 Stool for occult blood positive IMAGING: Chest x-ray no acute cardiopulmonary disease process. Cardiomegaly ASSESSMENT: 1. Acute upper GI bleed with black tarry stools 2. Acute blood loss anemia 3. Atrial fibrillation anticoagulated with Coumadin PLAN: -Patient scheduled for EGD tomorrow, 06/06/[address] Prater -Patient can have clear liquid diet today -Nothing by mouth after midnight -Continue IV Protonix -Hold Coumadin -Continue to monitor for any signs or symptoms of bleeding -Continue to monitor hemoglobin -Continue supportive care Thank you for this consultation Physician Message Clerk note has been reviewed by physician. Signing provider agrees with the documented findings, assessment, and plan of care. Past Medical History Past Medical History: Atrial Fibrillation, Diabetes Mellitus, GERD/Reflux, Hypertension, Osteoarthritis (OA), Pneumonia Additional Past Medical History / Comment(s): Afib/pt was to have cardiac ablation 06/06/21, murmur/"weak valve", NIDDM type II, neuropathy R foot, past anemia, chronic low back pain/herniated discs/DDD past sciatica and radiculopathy, RLS, bilateral lower leg/pedal edema History of Any Multi-Drug Resistant Organisms: None Reported Past Surgical History: Adenoidectomy, Back Surgery, Bladder Surgery, Breast Surgery, Heart Catheterization, Hysterectomy, Joint Replacement, Tonsillectomy Additional Past Surgical History / Comment(s): Lumbar fusion, lt knee arthro copy, shai knee replacements, bilateral carpal tunnel releases, d&cx2, 2 ectopic pregnancies/ surgery, partial hyst, rt breast bx-neg, cystocele/rectocele repair, cataracts, colonoscopies/benign polypectomies. Past Anesthesia/Blood Transfusion Reactions: No Reported Reaction Additional Past Anesthesia/Blood Transfusion Reaction / Comm: PPt received blood without reaction. Smoking Status: Never smoker - Past Family History Mother Family Medical History: Cancer, Dementia Additional Family Medical History / Comment(s): irregular heart rythm, colon cancer, lived till she was 92 years old Father Family Medical History: Myocardial Infarction ([place]) Additional Family Medical History / Comment(s): at age 62 from massive mi Medications and Allergies Home Medications Medication Instructions Recorded Confirmed Type PARoxetine [Paxil] 20 mg PO DAILY 02/15/15 06/04/21 History metFORMIN HCL [Glucophage] 1,000 mg PO BID 02/15/15 06/04/21 History Warfarin [Coumadin] 5 mg PO DAILY 04/08/16 06/04/21 History Glucos Sul 2Kcl/MSM/Chond/C/Mn 1 cap PO DAILY 02/02/19 06/04/21 History [Glucosamine Chondroitin Cap] Glimepiride [Amaryl] 2 mg PO DAILY 02/04/19 06/04/21 History Ergocalciferol (Vitamin D2) 1,250 mcg PO TH 03/05/21 06/04/21 History [Drisdol (50,000 Iu)] Furosemide [Lasix] 40 mg PO DAILY 03/05/21 06/04/21 History Magnesium 250 mg PO DAILY 03/05/21 06/04/21 History Metoprolol Succinate (ER) [Toprol 100 mg PO DAILY 03/05/21 06/04/21 History Xl] Omeprazole 20 mg PO DAILY 03/05/21 06/04/21 History Flecainide [Tambocor] 50 mg PO BID 06/04/21 06/04/21 History Garlic 1,000 Mg 1,000 mg PO DAILY 06/04/21 06/04/21 History Metoprolol Succinate [Toprol XL] 50 mg PO DAILY 06/04/21 06/04/21 History Potassium Gluconate [Potassium 99 mg PO DAILY 06/04/21 06/04/21 History Gluconate ER] Warfarin [Coumadin] 1 mg PO MOWEFR 06/04/21 06/04/21 History rOPINIRole HCL [Requip] 0.5 mg PO TID 06/04/21 06/04/21 History Allergies Allergy/AdvReac Type Severity Reaction Status Date / Time No Known Allergies Allergy Verified 06/04/21 17:16 Surgical - Exam Vital Signs Temp Pulse Resp BP Pulse Ox 98.3 F 68 18 131/60 98 06/04/21 15:48 06/04/21 15:48 06/04/21 15:48 06/04/21 15:48 06/04/21 15:48 Results - Labs 06/05/21 04:46 06/04/21 16:30 Abnormal Lab Results - Last 24 Hours (Table) 06/04/21 06/04/21 06/04/21 Range/Units 16:15 16:25 16:30 RBC 3.03 L (3.80-5.40) m/uL Hgb 6.5 L* (11.4-16.0) gm/dL Hct 22.1 L (34.0-46.0) % MCV 72.9 L (80.0-100.0) fL MCH 21.5 L (25.0-35.0) pg MCHC 29.5 L (31.0-37.0) g/dL RDW (11.5-14.5) % PT (9.0-12.0) sec INR (<1.2) Sodium (137-145) mmol/L BUN (7-17) mg/dL Glucose (74-99) mg/dL POC Glucose (mg/dL) (75-99) mg/dL Ur Leukocyte Esterase (Negative) Urine Mucus (None) /hpf Stool Occult Blood Positive H (Negative) Crossmatch See Detail 06/04/21 06/04/21 06/05/21 Range/Units 16:30 16:30 00:00 RBC (3.80-5.40) m/uL Hgb (11.4-16.0) gm/dL Hct (34.0-46.0) % MCV (80.0-100.0) fL MCH (25.0-35.0) pg MCHC (31.0-37.0) g/dL RDW (11.5-14.5) % PT 25.3 H (9.0-12.0) sec INR 2.5 H (<1.2) Sodium 135 L (137-145) mmol/L BUN 26 H (7-17) mg/dL Glucose 105 H (74-99) mg/dL POC Glucose (mg/dL) (75-99) mg/dL Ur Leukocyte Esterase Trace H (Negative) Urine Mucus Rare H (None) /hpf Stool Occult Blood (Negative) Crossmatch 06/05/21 06/05/21 06/05/21 Range/Units 04:46 07:21 11:10 RBC 3.33 L (3.80-5.40) m/uL Hgb 7.6 L (11.4-16.0) gm/dL Hct 25.0 L (34.0-46.0) % MCV 75.1 L (80.0-100.0) fL MCH 22.8 L (25.0-35.0) pg MCHC 30.4 L (31.0-37.0) g/dL RDW 18.3 H (11.5-14.5) % PT (9.0-12.0) sec INR (<1.2) Sodium (137-145) mmol/L BUN (7-17) mg/dL Glucose (74-99) mg/dL POC Glucose (mg/dL) 149 H 294 H (75-99) mg/dL Ur Leukocyte Esterase (Negative) Urine Mucus (None) /hpf Stool Occult Blood (Negative) Crossmatch Diabetes panel 06/04/21 Range/Units 16:30 Sodium 135 L (137-145) mmol/L Potassium 3.8 (3.5-5.1) mmol/L Chloride 102 (98-107) mmol/L Carbon Dioxide 24 (22-30) mmol/L BUN 26 H (7-17) mg/dL Creatinine 0.92 (0.52-1.04) mg/dL Glucose 105 H (74-99) mg/dL Calcium 8.8 (8.4-10.2) mg/dL AST 33 (14-36) U/L ALT 24 (4-34) U/L Alkaline Phosphatase 69 (38-126) U/L Total Protein 6.3 (6.3-8.2) g/dL Albumin 3.7 (3.5-5.0) g/dL Calcium panel 06/04/21 Range/Units 16:30 Calcium 8.8 (8.4-10.2) mg/dL Phosphorus 3.3 (2.5-4.5) mg/dL Albumin 3.7 (3.5-5.0) g/dL Pituitary panel 06/04/21 Range/Units 16:30 Sodium 135 L (137-145) mmol/L Potassium 3.8 (3.5-5.1) mmol/L Chloride 102 (98-107) mmol/L Carbon Dioxide 24 (22-30) mmol/L BUN 26 H (7-17) mg/dL Creatinine 0.92 (0.52-1.04) mg/dL Glucose 105 H (74-99) mg/dL Calcium 8.8 (8.4-10.2) mg/dL Adrenal panel 06/04/21 Range/Units 16:30 Sodium 135 L (137-145) mmol/L Potassium 3.8 (3.5-5.1) mmol/L Chloride 102 (98-107) mmol/L Carbon Dioxide 24 (22-30) mmol/L BUN 26 H (7-17) mg/dL Creatinine 0.92 (0.52-1.04) mg/dL Glucose 105 H (74-99) mg/dL Calcium 8.8 (8.4-10.2) mg/dL Total Bilirubin 0.4 (0.2-1.3) mg/dL AST 33 (14-36) U/L ALT 24 (4-34) U/L Alkaline Phosphatase 69 (38-126) U/L Total Protein 6.3 (6.3-8.2) g/dL Albumin 3.7 (3.5-5.0) g/dL
[2021-06-05 16:31] LABS: Glucose,Whole Blood 146 mg/dL (75-99)
--- NOTE | 2021-06-05 22:43 | P.HPIM ---
History of Present Illness H&P Date: 06/05/21 Chief Complaint: Dark stools This is a pleasant 75-year-old patient of Dr. gramajo. 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 Patient was due to have atrial fibrillation ablation on June [address] Jonny Grant. As a preop workup patient's found to have a hemoglobin of 6.5. She is also on Coumadin. INR was 2.5 on presentation. In February or 2020 patient had arthroscopy by Dr. Velma Benjamin. Found to have, no polyps. Subsequent to that patient been having dark stools most the time. No abdominal pain. He denies taking any NSAIDs. Has started feeling weak diet rundown. Lethargic. Admission hemoglobin now 6.5. GI services/Dr. Bernard not available this week. General surgery was consulted. Coumadin held. No chest pain or palpitation. Review of systems: GEN.: Tired weak EYES: None HEENT: None NECK: None RESPIRATORY: None CARDIOVASCULAR: None GASTROINTESTINAL: Dark stools] GENITOURINARY: None MUSCULOSKELETAL: Joint pains LYMPHATICS: None HEMATOLOGICAL: None PSYCHIATRY: None NEUROLOGICAL: None Past medical history to include: Atrial fibrillation, diabetes, GERD, hypertension, osteoarthritis, atrial fib rillation to have cardiac ablation on June 06, neuropathy right foot, chronic low back pain with herniated disc sciatica radiculopathy, restless leg syndrome, previous back surgery Social history: Lives with her . No history of smoking or alcohol. Family history: Dementia, colon cancer Physical examination: VITAL SIGNS: 98.3, 68, 18, 131/60, 98% room air GENERAL: BMI 30.8, laying in bed, awake, tired. EYES: [Pupils equal. Conjunctiva pale l. HEENT: External appearance of nose and ears normal, oral cavity grossly normal. NECK: JVD not raised; masses not palpable. HEART: First and second heart sounds are normal; no edema. LUNGS: Respiratory rate normal; clear to auscultation. ABDOMEN: Soft, nontender, liver spleen not palpable, no masses palpable. PSYCH: Alert and oriented x3; mood and affect normal. MUSCULOSKELETAL:No Clubbing/cyanosis;muscles-grossly intact. Evidence of OA NEUROLOGICAL: Cranial nerves grossly intact; no facial asymmetry, power and sensation grossly intact. LYMPHATICS: No lymph nodes palpable in the axilla and neck INVESTIGATIONS, reviewed in the clinical context: June 05: White count 5.4 hemoglobin 7.6 May: White count 5.9 hemoglobin 6.5 platelets 194 INR 2.5 potassium 3.8 creatinine 0.9 stool occult blood: Positive Coronavirus [PCR]: Not detected EKG tracing personally reviewed by me-sinus rhythm, right bundle-branch block Chest x-ray film personally reviewed by me-borderline currently. Lung nuñez clear Assessment and plan: -Acute severe microcytic anemia from GI blood loss, symptomatic Patient was transfused 2 units of blood. -Acute GI bleed-patient does take Coumadin. [Patient did have a colonoscopy in February [address] Velma Benjamin that was unremarkable except for polyps.] Gen. surgery consulted for EGD. -Paroxysmal atrial fibrillation, patient currently in sinus rhythm Telemetry. Flecainide 50 mg twice a day. Toprol-XL 150 mg a day -Diabetes mellitus type 2 Hold Amaryl and metformin. Sliding scale insulin -GERD Omeprazole 20 mg a day -Essential hypertension Toprol-XL 50 mg a day -Primary osteoarthritis Tylenol when necessary -Restless leg syndrome Requip 0.5 mg 3 times a day Home medications resumed. Hold oral hypoglycemic. Sliding scale insulin. Follow H&H. Patient has received 2 units of blood. Consultation to cardiology and general surgery. EGD tomorrow. Given the complexity and severity of patient's condition expect the patient to be in the hospital at least for 2 overnights Past Medical History Past Medical History: Atrial Fibrillation, Diabetes Mellitus, GERD/Reflux, Hypertension, Osteoarthritis (OA), Pneumonia Additional Past Medical History / Comment(s): Afib/pt was to have cardiac ablation 06/06/21, murmur/"weak valve", NIDDM type II, neuropathy R foot, past anemia, chronic low back pain/herniated discs/DDD past sciatica and radiculopathy, RLS, bilateral lower leg/pedal edema History of Any Multi-Drug Resistant Organisms: None Reported Past Surgical History: Adenoidectomy, Back Surgery, Bladder Surgery, Breast Surgery, Heart Catheterization, Hysterectomy, Joint Replacement, Tonsillectomy Additional Past Surgical History / Comment(s): Lumbar fusion, lt knee arthrocopy, shai knee replacements, bilateral carpal tunnel releases, d&cx2, 2 ectopic pregnancies/ surgery, partial hyst, rt breast bx-neg, cystocele/ rectocele repair, cataracts, colonoscopies/benign polypectomies. Past Anesthesia/Blood Transfusion Reactions: No Reported Reaction Additional Past Anesthesia/Blood Transfusion Reaction / Comment(s): PPt received blood without reaction. Smoking Status: Never smoker - Past Family History Mother Family Medical History: Cancer, Dementia Additional Family Medical History / Comment(s): irregular heart rythm, colon cancer, lived till she was 92 years old Father Family Medical History: Myocardial Infarction ([place]) Additional Family Medical History / Comment(s): at age 62 from massive mi Medications and Allergies Home Medications Medication Instructions Recorded Confirmed Type PARoxetine [Paxil] 20 mg PO DAILY 02/15/15 06/04/21 History metFORMIN HCL [Glucophage] 1,000 mg PO BID 02/15/15 06/04/21 History Warfarin [Coumadin] 5 mg PO DAILY 04/08/16 06/04/21 History Glucos Sul 2Kcl/MSM/Chond/C/Mn 1 cap PO DAILY 02/02/19 06/04/21 History [Glucosamine Chondroitin Cap] Glimepiride [Amaryl] 2 mg PO DAILY 02/04/19 06/04/21 History Ergocalciferol (Vitamin D2) 1,250 mcg PO TH 03/05/21 06/04/21 History [Drisdol (50,000 Iu)] Furosemide [Lasix] 40 mg PO DAILY 03/05/21 06/04/21 History Magnesium 250 mg PO DAILY 03/05/21 06/04/21 History Metoprolol Succinate (ER) [Toprol 100 mg PO DAILY 03/05/21 06/04/21 History Xl] Omeprazole 20 mg PO DAILY 03/05/21 06/04/21 History Flecainide [Tambocor] 50 mg PO BID 06/04/21 06/04/21 History Garlic 1,000 Mg 1,000 mg PO DAILY 06/04/21 06/04/21 History Metoprolol Succinate [Toprol XL] 50 mg PO DAILY 06/04/21 06/04/21 History Potassium Gluconate [Potassium 99 mg PO DAILY 06/04/21 06/04/21 History Gluconate ER] Warfarin [Coumadin] 1 mg PO MOWEFR 06/04/21 06/04/21 History rOPINIRole HCL [Requip] 0.5 mg PO TID 06/04/21 06/04/21 History Allergies Allergy/AdvReac Type Severity Reaction Status Date / Time No Known Allergies Allergy Verified 06/04/21 17:16 Physical Exam Vitals: Vital Signs Temp Pulse Pulse Resp BP BP Pulse Ox 06/05/21 19:20 98.7 F 58 L 16 157/67 98 06/05/21 14:00 98 F 68 18 143/63 96 06/05/21 07:30 96 06/05/21 07:00 69 18 145/64 95 06/05/21 05:10 98.2 F 64 21 144/65 96 06/05/21 04:10 67 22 141/63 96 06/05/21 03:10 98.1 F 61 17 146/75 96 06/05/21 02:10 69 14 142/86 98 06/05/21 01:13 76 18 142/76 96 06/04/21 23:33 98.0 F 77 18 148/79 97 Intake and Output 06/05/21 06/05/21 06/05/21 06:59 14:59 22:59 Intake Total 554 Balance 554 Intake: Blood Product 554 Rc Pheresis As-3 Unit 280 [id number] Rc Pheresis As-3 Unit 274 [id number] Other: Voiding Method Toilet # Voids 1 2 Weight 83.915 kg Results CBC & Chem 7: 06/05/21 04:46 06/04/21 16:30 Labs: Abnormal Lab Results - Last 24 Hours (Table) 06/04/21 06/05/21 06/05/21 Range/Units 16:25 00:00 04:46 RBC 3.33 L (4.10-5.20) X 10*6/uL Hgb 7.6 L (12.0-15.0) g/dL Hct 25.0 L (37.2-46.3) % MCV 75.1 L (80.0-97.0) fL MCH 22.8 L (27.0-32.0) pg MCHC 30.4 L (32.0-37.0) g/dL RDW 18.3 H (11.5-14.5) % POC Glucose (mg/dL) (75-99) mg/dL Ur Leukocyte Esterase Trace H (Negative) Urine Mucus Rare H (None) /hpf Crossmatch See Detail 06/05/21 06/05/21 06/05/21 Range/Units 07:21 11:10 16:30 RBC (4.10-5.20) X 10*6/uL Hgb (12.0-15.0) g/dL Hct (37.2-46.3) % MCV (80.0-97.0) fL MCH (27.0-32.0) pg MCHC (32.0-37.0) g/dL RDW (11.5-14.5) % POC Glucose (mg/dL) 149 H 294 H 146 H (75-99) mg/dL Ur Leukocyte Esterase (Negative) Urine Mucus (None) /hpf Crossmatch Thrombosis Risk Factor Assmnt - Choose All That Apply Any of the Below Risk Factors Present?: Yes Each Factor Represents 1 point: Obesity (BMI >25) Other Risk Factors: Yes Each Risk Factor Represents 3 Points: Age 75 years or older Other congenital or acquired thrombophilia - If yes, enter type in comment: No Thrombosis Risk Factor Assessment Total Risk Factor Score: 4 Thrombosis Risk Factor Assessment Level: Moderate Risk
[2021-06-06 04:46] LABS: Anisocytosis Slight; HCT 26.5 % (34.0-46.0); Hypochromasia Marked; MCH 23.1 pg (25.0-35.0); MCHC 30.3 g/dL (31.0-37.0); MCV 76.3 fL (80.0-100.0); Mean Platelet Volume 7.3; Microcytosis Slight; Platelet Count 174 k/uL (150-450); Poikilocytosis Marked; RBC 3.47 m/uL (3.80-5.40); RDW 17.8 % (11.5-15.5); WBC 4.1 k/uL (3.8-10.6)
[2021-06-06 04:58] LABS: African American GFR (CKD) 78 (>60 ml/min/1.73 sqM); Anion Gap 9 mmol/L; Blood Urea Nitrogen 20 mg/dL (7-17); Calcium 8.8 mg/dL (8.4-10.2); Carbon Dioxide 25 mmol/L (22-30); Chloride 101 mmol/L (98-107); Glucose 118 mg/dL (74-99); Non-African American GFR(CKD) 68 (>60 ml/min/1.73 sqM); Potassium 4.3 mmol/L (3.5-5.1); Sodium 135 mmol/L (137-145)
[2021-06-06 05:01] LABS: INR 1.7 (<1.2); Prothrombin Time 17.4 sec (9.0-12.0)
[2021-06-06 07:14] LABS: Glucose,Whole Blood 149 mg/dL (75-99)
[2021-06-06] MEDS: INSULIN ASPART (NovoLOG) 100 UNIT/ML VIAL SQ SCH ×3 (07:38→17:08)
[2021-06-06] MEDS ORDERED: ERGOCALCIFEROL 1,250 MCG (50,000 IU) CAPSULE PO SCH (09:00)
[2021-06-06] MEDS ORDERED: IV FLUID CONTINUATION 1,000 ML IV ONE ×2 (09:20)
[2021-06-06] MEDS ORDERED: PROPOFOL 10 MG/ML 20 ML VIAL IV ONE (09:20)
--- NOTE | 2021-06-06 09:24 | P.PN ---
Subjective Progress Note Date: 06/06/21 CHIEF COMPLAINT: Anemia HISTORY OF PRESENT ILLNESS: The patient is a 75-year-old female admitted with a hemoglobin less than 7.0 unclear etiology. She's had multiple colonoscopies was recent colonoscopy less than 6 months ago with polyps removed. Patient was vented yesterday with acute anemia with blood given. ROS: No reports of nausea and vomiting. No fevers or chills. PHYSICAL EXAM: VITAL SIGNS: Reviewed CONSTITUTIONAL: Well developed and in no acute distress. EYES: Conjuctivae without sclera icterus. Extraocular movements grossly intact. HEAD, EARS, NOSE, THROAT: Moist buccal mucosa. Head is atraumatic, normocephalic. Hears conversational speech. No nasal drainage. RESPIRATORY: Non-labored respirations and equal bilateral excursions. CARDIOVASCULAR: Palpable 2+ radial pulses. ABDOMEN: No peritonitis. MUSCULOSKELETAL: No gross deformity of the lower extremities noted. No clubbing. No cyanosis. SKIN: Good skin turgor. Well perfused. NEUROLOGIC: Cranial nerves II through XII grossly intact. No focal or lateralizing signs. PSYCH: Appropriate affect. Alert and oriented to person, place and time. CLINICAL LABS: Reviewed. Hemoglobin of 6.5-8.0. ASSESSMENT: 1. Anemia. PLAN: 1. Recommend upper endoscopy as recent lower endoscopy performed less than 6 months ago. Objective - Vital Signs Vital signs: Vital Signs Temp 98.4 F 06/06/21 08:00 Pulse 54 L 06/06/21 08:00 Resp 16 06/06/21 08:00 BP 143/63 06/06/21 08:00 Pulse Ox 97 06/06/21 08:00 Intake & Output 06/05/21 06/06/21 06/06/21 18:59 06:59 18:59 Intake Total 250 Output Total 200 Balance 50 Weight 83.915 kg Intake: Oral 250 Output: Urine 200 Other: Voiding Method Toilet # Voids 2 1 - Labs CBC & Chem 7: 06/06/21 04:16 06/06/21 04:16 Labs: Abnormal Lab Results - Last 24 Hours (Table) 06/05/21 06/05/21 06/05/21 Range/Units 04:46 11:10 16:30 RBC 3.33 L (4.10-5.20) X 10*6/uL Hgb 7.6 L (12.0-15.0) g/dL Hct 25.0 L (37.2-46.3) % MCV 75.1 L (80.0-97.0) fL MCH 22.8 L (27.0-32.0) pg MCHC 30.4 L (32.0-37.0) g/dL RDW 18.3 H (11.5-14.5) % PT (9.0-12.0) sec INR (<1.2) Sodium (137-145) mmol/L BUN (7-17) mg/dL Glucose (74-99) mg/dL POC Glucose (mg/dL) 294 H 146 H (75-99) mg/dL 06/06/21 06/06/21 06/06/21 Range/Units 04:16 04:16 04:16 RBC 3.47 L (4.10-5.20) X 10*6/uL Hgb 8.0 L D (12.0-15.0) g/dL Hct 26.5 L (37.2-46.3) % MCV 76.3 L (80.0-97.0) fL MCH 23.1 L (27.0-32.0) pg MCHC 30.3 L (32.0-37.0) g/dL RDW 17.8 H (11.5-14.5) % PT 17.4 H (9.0-12.0) sec INR 1.7 H (<1.2) Sodium 135 L (137-145) mmol/L BUN 20 H (7-17) mg/dL Glucose 118 H (74-99) mg/dL POC Glucose (mg/dL) (75-99) mg/dL 06/06/21 Range/Units 07:13 RBC (4.10-5.20) X 10*6/uL Hgb (12.0-15.0) g/dL Hct (37.2-46.3) % MCV (80.0-97.0) fL MCH (27.0-32.0) pg MCHC (32.0-37.0) g/dL RDW (11.5-14.5) % PT (9.0-12.0) sec INR (<1.2) Sodium (137-145) mmol/L BUN (7-17) mg/dL Glucose (74-99) mg/dL POC Glucose (mg/dL) 149 H (75-99) mg/dL
--- NOTE | 2021-06-06 09:40 | P.PCN ---
Date of Procedure: 06/06/21 Description of Procedure: PREOPERATIVE DIAGNOSIS: Severe symptomatic anemia, hemoglobin 6.5 Status post blood transfusion POSTOPERATIVE DIAGNOSIS: Gastritis without active bleeding OPERATION: Esophagogastroduodenoscopy SURGEON: Destiney Prater MD ANESTHESIA: MAC. INDICATIONS: The patient is a 75-year-old female who presents with acute anemia status post blood transfusion. Benefits and risks of the procedure were described. Informed consent was obtained. DESCRIPTION: The patient was brought into the endoscopy suite and laid in the left lateral decubitus position. An Olympus gastroscope was passed along the posterior oropharynx down to the distal esophagus where the squamocolumnar junction was encountered at 37 cm from the incisors. The stomach was entered and no bile reflux was found. Additional findings are listed below. The first through third portion of the duodenum was examined and unremarkable. Retroflexion of the scope confirmed Hill grade 2 lower esophageal valve. The squamocolumnar junction demonstrated LA grade B erosive esophagitis. The stomach was desufflated. The patient tolerated the procedure well. FINDINGS: Squamocolumnar junction 37 cm from the incisors. Diaphragmatic hiatus at 37 cm. Hill grade 2 lower esophageal valve. LA grade B erosive esophagitis. No active duodenitis. Gastritis along the antrum without biopsies No duodenal ulcers No gastric ulcers RECOMMENDATIONS: 1. Heart healthy diet 2. May need colonoscopy for presence of lower GI bleed
[2021-06-06] MEDS: METOPROLOL SUCCINATE (ER) 100 MG TAB.ER.24H PO SCH (10:00)
[2021-06-06] MEDS: METOPROLOL SUCCINATE (ER) 50 MG TAB.ER.24H PO SCH (10:00)
[2021-06-06] MEDS: FUROSEMIDE 40 MG TAB PO SCH (10:00)
[2021-06-06] MEDS: FLECAINIDE 50 MG TAB PO SCH ×2 (10:00→20:08)
[2021-06-06] MEDS: PANTOPRAZOLE 40 MG/10 ML VIAL IVP SCH ×2 (10:00→20:08)
[2021-06-06] MEDS: PARoxetine 20 MG TAB PO SCH (10:00)
--- NOTE | 2021-06-06 10:23 | P.PN ---
Subjective Progress Note Date: 06/06/21 HISTORY OF PRESENT ILLNESS: This is a 75-year-old female with a past medical history significant for paroxysmal atrial fibrillation, aortic stenosis, and diabetes. Patient follows in the office with Dr. Winkler and Dr. Grant. We have been asked to see the patient in consultation for atrial fibrillation and anemia. Patient examined at the bedside in the emergency room. Patient states she is scheduled to have an A. fib ablation tomorrow with Dr. Grant. Patient underwent some preoperative blood work and was found to be anemic with a hemoglobin of 6.6. The patient does report that she has been having some fatigue over the past month which she has attributed to her atrial fibrillation. She also reports having dark stools for the past 2-3 weeks. She denies having any bright red blood. The patient is prescribed warfarin on an outpatient basis for her atrial fibril lation. The patient currently denies any shortness of breath. She denies any chest pain or pressure. She denies any dizziness or lightheadedness. The patient did receive 2 units packed RBCs. Repeat hemoglobin this morning is 7.6. It is noted that the patient did have a colonoscopy in February [address] Benjamin with removal of polyps. EKG reveals sinus mechanism with right bundle branch block. Chest xray no acute cardiopulmonary disease or process. Similar cardiomegaly Laboratory data: WBC 5.48. Hemoglobin 7.6. Platelet count 178. INR 2.5. Sodium 135. Potassium 3.8. BUN 26. Creatinine 0.92. Troponin negative 1. ProBNP 441. Current home cardiac medications include warfarin 1 mg Thursday and 5 mg daily, flecainide 50 mg twice a day, metoprolol succinate 150 mg daily, Lasix 40 mg daily Most recent echocardiogram obtained in November 2020 at the cardiology office revealing ejection fraction 60%, mild aortic regurgitation, moderate aortic stenosis, mild mitral regurgitation, mild mitral stenosis, mild tricuspid regurgitation Patient underwent Lexiscan stress test in February 2021 which was negative for reversible ischemia 06/06/2021 Patient examined this morning at the bedside. Patient denies chest pain or pressure. She denies shortness of breath. Patient's warfarin remains on hold. Hemoglobin this morning 8.0. INR 1.7. She is scheduled to undergo EGD today with general surgery. PHYSICAL EXAM: VITAL SIGNS: Reviewed. GENERAL: Well-developed in no acute distress. HEENT: Head is normocephalic. Pupils are equal, round. Sclerae anicteric. Mucous membranes of the mouth are moist. Neck supple. No JVD or thyromegaly LUNGS: Respirations even and unlabored. Lungs essentially clear to auscultation bilaterally. HEART: Regular rate and rhythm. S1 and S2 heard. Systolic murmur noted. ABDOMEN: Soft. Nondistended. Nontender. EXTREMITIES: Normal range of motion. No clubbing or cyanosis. Peripheral puls es intact. No lower extremity edema NEUROLOGIC: Awake and alert. Oriented x 3. ASSESSMENT: Acute blood loss anemia Acute GI bleed with black stools x 2-3 weeks Paroxysmal atrial fibrillation, on anticoagulation with warfarin Moderate aortic stenosis Diabetes PLAN: Patient scheduled to undergo EGD today with general surgery Continue to hold warfarin. Monitor hemoglobin. Resume anticoagulation when okay with general surgery We will sign off. Please reconsult if needed. Nurse practitioner note has been reviewed by physician. Signing provider agrees with the documented findings, assessment, and plan of care. Objective - Vital Signs Vital signs: Vital Signs Temp 98.4 F 06/06/21 08:00 Pulse 54 L 06/06/21 08:00 Resp 16 06/06/21 08:00 BP 143/63 06/06/21 08:00 Pulse Ox 97 06/06/21 08:00 Intake & Output 06/05/21 06/06/21 06/06/21 18:59 06:59 18:59 Intake Total 250 100 Output Total 200 Balance 50 100 Weight 83.915 kg Intake: IV 100 Oral 250 Output: Urine 200 Other: Voiding Method Toilet # Voids 2 1 - Labs CBC & Chem 7: 06/06/21 04:16 06/06/21 04:16 Labs: Abnormal Lab Results - Last 24 Hours (Table) 06/05/21 06/05/21 06/06/21 Range/Units 11:10 16:30 04:16 RBC 3.47 L (3.80-5.40) m/uL Hgb 8.0 L D (11.4-16.0) gm/dL Hct 26.5 L (34.0-46.0) % MCV 76.3 L (80.0-100.0) fL MCH 23.1 L (25.0-35.0) pg MCHC 30.3 L (31.0-37.0) g/dL RDW 17.8 H (11.5-15.5) % PT (9.0-12.0) sec INR (<1.2) Sodium (137-145) mmol/L BUN (7-17) mg/dL Glucose (74-99) mg/dL POC Glucose (mg/dL) 294 H 146 H (75-99) mg/dL 06/06/21 06/06/21 06/06/21 Range/Units 04:16 04:16 07:13 RBC (3.80-5.40) m/uL Hgb (11.4-16.0) gm/dL Hct (34.0-46.0) % MCV (80.0-100.0) fL MCH (25.0-35.0) pg MCHC (31.0-37.0) g/dL RDW (11.5-15.5) % PT 17.4 H (9.0-12.0) sec INR 1.7 H (<1.2) Sodium 135 L (137-145) mmol/L BUN 20 H (7-17) mg/dL Glucose 118 H (74-99) mg/dL POC Glucose (mg/dL) 149 H (75-99) mg/dL
[2021-06-06 11:42] LABS: Glucose,Whole Blood 226 mg/dL (75-99)
[2021-06-06 17:05] LABS: Glucose,Whole Blood 129 mg/dL (75-99)
--- NOTE | 2021-06-06 19:34 | P.PN ---
Progress Note - Text Progress Note Date: 06/06/21 Chief Complaint: Dark stools This is a pleasant 75-year-old patient of Dr. gramajo. 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 Patient was due to have atrial fibrillation ablation on June [address] Jonny Grant. As a preop workup patient's found to have a hemoglobin of 6.5. She is also on Coumadin. INR was 2.5 on presentation. In February or 2020 patient had arthroscopy by Dr. Velma Benjamin. Found to have, no polyps. Subsequent to that patient been having dark stools most the time. No abdominal pain. He denies taking any NSAIDs. Has started feeling weak diet rundown. Lethargic. Admission hemoglobin now 6.5. GI services/Dr. Bernard not available this week. General surgery was consulted. Coumadin held. No chest pain or palpitation. June 06: EGD by Dr. Romano. Grade B erosive disease. Some gastritis. Discussed with patient. 2 months ago she had a colonoscopy. We will arrange for small bowel capsule camera study. This is scheduled for tomorrow. Did communicate with Dr. Jonny Grant. Ablation has been deferred indefinitely. Active Medications Acetaminophen (Acetaminophen Tab 325 Mg Tab) 650 mg PO Q6HR PRN PRN Reason: Mild Pain or Fever > 100.5 Ergocalciferol (Ergocalciferol 1,250 Mcg (50,000 Iu) Capsule) 1,250 mcg PO TH [facility] Last Admin: 06/06/21 10:00 Dose: 1,250 mcg Documented by: Flecainide Acetate (Flecainide 50 Mg Tab) 50 mg PO BID [facility] Last Admin: 06/06/21 10:00 Dose: 50 mg Documented by: Furosemide (Furosemide 40 Mg Tab) 40 mg PO DAILY [facility] Last Admin: 06/06/21 10:00 Dose: 40 mg Documented by: Insulin Aspart (Insulin Aspart (Novolog) 100 Unit/Ml Vial) 0 unit SQ AC-TID [facility]; Protocol Last Admin: 06/06/21 17:08 Dose: Not Given Documented by: Magnesium Citrate (Magnesium Citrate 296 Ml Bottle) 296 ml PO ONCE ONE Stop: 06/06/21 20:01 Metoprolol Succinate (Metoprolol Succinate (Er) 50 Mg Tab.Er.24h) 50 mg PO DAILY [facility] Last Admin: 06/06/21 10:00 Dose: Not Given Documented by: Metoprolol Succinate (Metoprolol Succinate (Er) 100 Mg Tab.Er.24h) 100 mg PO DAILY [facility] Last Admin: 06/06/21 10:00 Dose: Not Given Documented by: Naloxone HCl (Naloxone 0.4 Mg/Ml 1 Ml Vial) 0.2 mg IV Q2M PRN PRN Reason: Opioid Reversal Ondansetron HCl (Ondansetron 4 Mg/2 Ml Vial) 4 mg IVP Q8HR PRN PRN Reason: Nausea And Vomiting Pantoprazole Sodium (Pantoprazole 40 Mg/10 Ml Vial) 40 mg IVP BID [facility] Last Admin: 06/06/21 10:00 Dose: 40 mg Documented by: Paroxetine HCl (Paroxetine 20 Mg Tab) 20 mg PO DAILY [facility] Last Admin: 06/06/21 10:00 Dose: 20 mg Documented by: Ropinirole HCl (Ropinirole Hcl 0.25 Mg Tab) 0.5 mg PO TID [facility] Last Admin: 06/06/21 17:15 Dose: 0.5 mg Documented by: Past medical history to include: Atrial fibrillation, diabetes, GERD, hypertension, osteoarthritis, atrial fibrillation to have cardiac ablation on June 06, neuropathy right foot, chronic low back pain with herniated disc sciatica radiculopathy, restless leg syndrome, previous back surgery Social history: Lives with her . No history of smoking or alcohol. Family history: Dementia, colon cancer Physical examination: VITAL SIGNS: 97.9, 58, 16, 148/67, 96% room air GENERAL: Propped up in bed, awake, EYES: [Pupils equal. Conjunctiva pale HEENT: External appearance of nose and ears normal, oral cavity grossly normal. NECK: JVD not raised; masses not palpable. HEART: First and second heart sounds are normal; no edema. LUNGS: Respiratory rate normal; clear to auscultation. ABDOMEN: Soft, nontender, liver spleen not palpable, no masses palpable. PSYCH: Alert and oriented x3; mood and affect normal. MUSCULOSKELETAL:No Clubbing/cyanosis;muscles-grossly intact. Evidence of OA NEUROLOGICAL: Cranial nerves grossly intact; no facial asymmetry, power and sensation grossly intact. LYMPHATICS: No lymph nodes palpable in the axilla and neck INVESTIGATIONS, reviewed in the clinical context: June 06: Hemoglobin 8 EGD: Grade B esophagitis. Mild gastritis. June 05: White count 5.4 hemoglobin 7.6 June 04: White count 5.9 hemoglobin 6.5 platelets 194 INR 2.5 potassium 3.8 creatinine 0.9 stool occult blood: Positive Coronavirus [PCR]: Not detected EKG tracing personally reviewed by me-sinus rhythm, right bundle-branch block Chest x-ray film personally reviewed by me-borderline currently. Lung nuñez clear Assessment and plan: -Acute severe microcytic anemia from GI blood loss, symptomatic Patient was transfused 2 units of blood. -Acute GI bleed-patient does take Coumadin. [Patient did have a colonoscopy in February [address] Velma Benjamin that was unremarkable except for polyps.] EGD: Grade B esophagitis and some gastritis. Small bowel capsule endoscopy's arrange for tomorrow. -Paroxysmal atrial fibrillation, patient currently in sinus rhythm Telemetry. Flecainide 50 mg twice a day. Toprol-XL 150 mg a day. Hold Coumadin -Diabetes mellitus type 2 Hold Amaryl and metformin. Sliding scale insulin -GERD Omeprazole 20 mg a day -Essential hypertension Toprol-XL 50 mg a day -Primary osteoarthritis Tylenol when necessary -Restless leg syndrome Requip 0.5 mg 3 times a day Small bowel capsule study being arranged for tomorrow. Dr. Velma Benjamin is out of town. Study can be read when she returns. Discussed with patient.
[2021-06-06] MEDS ORDERED: MAGNESIUM CITRATE 296 ML BOTTLE PO ONE (20:00)
[2021-06-06 20:14] LABS: Glucose,Whole Blood 174 mg/dL (75-99)
[2021-06-07 05:25] LABS: Anisocytosis Slight; Basophils % (A) 0 %; Eosinophils # (A) 0.2 k/uL (0-0.7); Eosinophils % (A) 5 %; HCT 26.6 % (34.0-46.0); HGB 8.3 gm/dL (11.4-16.0); Hypochromasia Marked; Lymphocytes # (A) 1.1 k/uL (1.0-4.8); Lymphocytes % (A) 28 %; MCH 23.6 pg (25.0-35.0); MCHC 31.2 g/dL (31.0-37.0); MCV 75.6 fL (80.0-100.0); Mean Platelet Volume 7.2; Microcytosis Slight; Monocytes # (A) 0.2 k/uL (0-1.0); Monocytes % (A) 6 %; Neutrophils # (A) 2.3 k/uL (1.3-7.7); Neutrophils % (A) 58 %; Platelet Count 188 k/uL (150-450); Poikilocytosis Marked; RBC 3.52 m/uL (3.80-5.40); RDW 18.3 % (11.5-15.5); WBC 3.9 k/uL (3.8-10.6)
[2021-06-07 07:26] LABS: Glucose,Whole Blood 183 mg/dL (75-99)
[2021-06-07] MEDS ORDERED: SIMETHICONE 40 MG/0.6 ML DROPS 2,000 MG/30 ML BOTTLE PO ONE (07:56)
[2021-06-07] MEDS: INSULIN ASPART (NovoLOG) 100 UNIT/ML VIAL SQ SCH ×2 (08:03→12:46)
[2021-06-07 08:45] VITALS: BP 137/73; PULSE 78; RESP 16; TEMP 98.3
[2021-06-07] MEDS: FUROSEMIDE 40 MG TAB PO SCH (10:43)
[2021-06-07] MEDS: METOPROLOL SUCCINATE (ER) 50 MG TAB.ER.24H PO SCH (10:43)
[2021-06-07] MEDS: PANTOPRAZOLE 40 MG/10 ML VIAL IVP SCH (10:43)
[2021-06-07] MEDS: PARoxetine 20 MG TAB PO SCH (10:43)
[2021-06-07] MEDS: METOPROLOL SUCCINATE (ER) 100 MG TAB.ER.24H PO SCH (10:44)
[2021-06-07] MEDS: FLECAINIDE 50 MG TAB PO SCH (10:44)
[2021-06-07 11:56] LABS: Glucose,Whole Blood 211 mg/dL (75-99)
[2021-06-07] MEDS ORDERED: SODIUM FERRIC GLUCONAT-SUCROSE 125 MG in SODIUM CHLORIDE 0.9% 100 ML IVPB ONE (13:15)
--- NOTE | 2021-06-07 14:33 | P.PN ---
Subjective Progress Note Date: 06/07/21 CHIEF COMPLAINT: Anemia HISTORY OF PRESENT ILLNESS: This is a 75-year-old female with anemia requiring blood transfusion. She status post EGD with results showing gastritis without active bleeding. Patient reporting no black stools. Denies any abdominal pain. Denies any nausea vomiting hemoglobin is up from 88.3. She is receiving IV iron. She is undergoing a video small bowel capsule endoscopy. Afebrile. Vital stable. WBC is 3.9 hemoglobin 8.3 platelets 188 PHYSICAL EXAM: VITAL SIGNS: Reviewed GENERAL: Well-developed in no acute distress. HEENT: No sclera icterus. Extraocular movements grossly intact. Moist buccal mucosa. Head is atraumatic, normocephalic. Hears conversational speech. No nasal drainage. NECK: Supple without lymphadenopathy. CHEST: Non-labored respirations and equal bilateral excursions. CARDIOVASCULAR: Palpable 2+ radial pulses. ABDOMEN: Soft. Nondistended. Nontender. MUSCULOSKELETAL: No clubbing or cyanosis. NEUROLOGIC: No focal or lateralizing signs. Cranial nerves II through XII grossly intact. PSYCH: Appropriate affect. Alert and oriented to person, place and time. SKIN: Well perfused. Good skin turgor. ASSESSMENT: 1. Acute GI bleed with black tarry stools. Patient status post EGD with results showing gastritis without active bleeding. 2. Severe symptomatic anemia 3. Acute blood loss anemia 4. Atrial fibrillation anticoagulated with Coumadin PLAN: -Undergoing video small bowel capsule endoscopy -Patient may need colonoscopy for presence of lower GI bleed -Continue PPI -Continue to hold Coumadin -Continue consistent carbohydrate diet Physician Soft Shoe Dancer note has been reviewed by physician. Signing provider agrees with the documented findings, assessment, and plan of care. Objective - Vital Signs Vital signs: Vital Signs Temp 98.3 F 06/07/21 07:00 Pulse 78 06/07/21 07:00 Resp 16 06/07/21 07:00 BP 137/73 06/07/21 07:00 Pulse Ox 98 06/07/21 07:00 Intake & Output 06/06/21 06/07/21 06/07/21 18:59 06:59 18:59 Intake Total 100 250 Balance 100 250 Intake: IV 100 Oral 250 Other: Voiding Method Toilet # Voids 2 5 - Labs CBC & Chem 7: 06/07/21 04:39 06/06/21 04:16 Labs: Abnormal Lab Results - Last 24 Hours (Table) 06/06/21 06/06/21 06/07/21 Range/Units 17:03 20:12 04:39 RBC 3.52 L (3.80-5.40) m/uL Hgb 8.3 L (11.4-16.0) gm/dL Hct 26.6 L (34.0-46.0) % MCV 75.6 L (80.0-100.0) fL MCH 23.6 L (25.0-35.0) pg RDW 18.3 H (11.5-15.5) % POC Glucose (mg/dL) 129 H 174 H (75-99) mg/dL 06/07/21 06/07/21 Range/Units 07:25 11:54 RBC (3.80-5.40) m/uL Hgb (11.4-16.0) gm/dL Hct (34.0-46.0) % MCV (80.0-100.0) fL MCH (25.0-35.0) pg RDW (11.5-15.5) % POC Glucose (mg/dL) 183 H 211 H (75-99) mg/dL
--- NOTE | 2021-06-07 23:19 | P.DS ---
Providers Date of admission: 06/04/21 17:55 Expected date of discharge: 06/07/21 Attending physician: Oj Chavarria Consults: 06/05/21 09:02 Consult Physician Routine Consulting Provider: Destiney Prater Consult Reason/Comments: GI bleed Do you want consulting provider notified?: Yes Primary care physician: [facility] Course: Chief Complaint: Dark stools This is a pleasant 75-year-old patient of Dr. gramajo. 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 Patient was due to have atrial fibrillation ablation on June [address] Jonny Grant. As a preop workup patient's found to have a hemoglobin of 6.5. She is also on Coumadin. INR was 2.5 on presentation. In February or 2020 patient had arthroscopy by Dr. Velma Benjamin. Found to have, no polyps. Subsequent to that patient been having dark stools most the time. No abdominal pain. He denies taking any NSAIDs. Has started feeling weak diet rundown. Lethargic. Admission hemoglobin now 6.5. GI services/Dr. Bernard not available this week. General surgery was consulted. Coumadin held. No chest pain or palpitation. June 06: EGD by Dr. Romano. Grade B erosive disease. Some gastritis. Discussed with patient. 2 months ago she had a colonoscopy. We will arrange for small bowel capsule camera study. This is scheduled for tomorrow. Did communicate with Dr. Jonny Grant. Ablation has been deferred indefinitely. June 07: Patient finished a small bowel capsule study today. Dr. Velma Benjamin the back in town after a week. We'll follow up on the results. Patient to follow-up with her. Start the Coumadin 3 days. She'll follow with the salon designer. PPI. Hemoglobin stable. IV iron given. Discussion and discharge planning more than 35 minutes Past medical history to include: Atrial fibrillation, diabetes, GERD, hypertension, osteoarthritis, atrial fibrillation to have cardiac ablation on June 06, neuropathy right foot, chronic low back pain with herniated disc sciatica radiculopathy, restless leg syndrome, previous back surgery Social history: Lives with her . No history of smoking or alcohol. Family history: Dementia, colon cancer Physical examination: VITAL SIGNS: 98.3, 78, 16, 137.73, 98% room air GENERAL: Propped up in bed, comfortable EYES: [Pupils equal. Conjunctiva pale HEENT: External appearance of nose and ears normal, oral cavity grossly normal. NECK: JVD not raised; masses not palpable. HEART: First and second heart sounds are normal; no edema. LUNGS: Respiratory rate normal; clear to auscultation. ABDOMEN: Soft, nontender, liver spleen not palpable, no masses palpable. PSYCH: Alert and oriented x3; mood and affect normal. MUSCULOSKELETAL:No Clubbing/cyanosis;muscles-grossly intact. Evidence of OA INVESTIGATIONS, reviewed in the clinical context: June 07: Hemoglobin 8.3 June 06: Hemoglobin 8 EGD: Grade B esophagitis. Mild gastritis. June 05: White count 5.4 hemoglobin 7.6 June 04: White count 5.9 hemoglobin 6.5 platelets 194 INR 2.5 potassium 3.8 creatinine 0.9 stool occult blood: Positive Coronavirus [PCR]: Not detected EKG tracing personally reviewed by me-sinus rhythm, right bundle-branch block Chest x-ray film personally reviewed by me-borderline currently. Lung nuñez clear Assessment and plan: -Acute severe microcytic anemia from GI blood loss, symptomatic Patient was transfused 2 units of blood. -Acute GI bleed-patient does take Coumadin. [Patient did have a colonoscopy in February [address] Velma Benjamin that was unremarkable except for polyps.] EGD [by Dr. Romano]: Grade B esophagitis and some gastritis. Small bowel capsule endoscopy's done. Results to be followed by Dr. Velma Benjamin.. -Paroxysmal atrial fibrillation, patient currently in sinus rhythm Telemetry. Flecainide 50 mg twice a day. Toprol-XL 150 mg a day. Resume Coumadin 3 days -Diabetes mellitus type 2 Amaryl and metformin. Sliding scale insulin -GERD Increase Omeprazole 20 mg twice a day -Essential hypertension Toprol-XL 50 mg a day -Primary osteoarthritis Tylenol when necessary -Restless leg syndrome Requip 0.5 mg 3 times a day Disposition: Home Plan - Discharge Summary Discharge Rx Participant: No New Discharge Prescriptions: New Omeprazole [PriLOSEC] 20 mg PO AC-BID #60 cap Continue metFORMIN HCL [Glucophage] 1,000 mg PO BID PARoxetine [Paxil] 20 mg PO DAILY Warfarin [Coumadin] 5 mg PO DAILY Glucos Sul 2Kcl/MSM/Chond/C/Mn [Glucosamine Chondroitin Cap] 1 cap PO DAILY Glimepiride [Amaryl] 2 mg PO DAILY Ergocalciferol (Vitamin D2) [Drisdol (50,000 Iu)] 1,250 mcg PO TH Metoprolol Succinate (ER) [Toprol XL] 100 mg PO DAILY Magnesium 250 mg PO DAILY Flecainide [Tambocor] 50 mg PO BID Metoprolol Succinate [Toprol XL] 50 mg PO DAILY Furosemide [Lasix] 40 mg PO DAILY Omeprazole 20 mg PO DAILY Potassium Gluconate [Potassium Gluconate ER] 99 mg PO DAILY rOPINIRole HCL [Requip] 0.5 mg PO TID Warfarin [Coumadin] 1 mg PO MOWEFR No Action Garlic 1,000 Mg 1,000 mg PO DAILY Discharge Medication List PARoxetine [Paxil] 20 mg PO DAILY 02/15/15 [History] metFORMIN HCL [Glucophage] 1,000 mg PO BID 02/15/15 [History] Warfarin [Coumadin] 5 mg PO DAILY 04/08/16 [History] Glucos Sul 2Kcl/MSM/Chond/C/Mn [Glucosamine Chondroitin Cap] 1 cap PO DAILY 02/02/19 [History] Glimepiride [Amaryl] 2 mg PO DAILY 02/04/19 [History] Ergocalciferol (Vitamin D2) [Drisdol (50,000 Iu)] 1,250 mcg PO TH 03/05/21 [History] Furosemide [Lasix] 40 mg PO DAILY 03/05/21 [History] Magnesium 250 mg PO DAILY 03/05/21 [History] Metoprolol Succinate (ER) [Toprol XL] 100 mg PO DAILY 03/05/21 [History] Omeprazole 20 mg PO DAILY 03/05/21 [History] Flecainide [Tambocor] 50 mg PO BID 06/04/21 [History] Garlic 1,000 Mg 1,000 mg PO DAILY 06/04/21 [History] Metoprolol Succinate [Toprol XL] 50 mg PO DAILY 06/04/21 [History] Potassium Gluconate [Potassium Gluconate ER] 99 mg PO DAILY 06/04/21 [History] Warfarin [Coumadin] 1 mg PO MOWEFR 06/04/21 [History] rOPINIRole HCL [Requip] 0.5 mg PO TID 06/04/21 [History] Omeprazole [PriLOSEC] 20 mg PO AC-BID #60 cap 06/07/21 [Rx] Follow up Appointment(s)/Referral(s): Charles Winkler DO [STAFF PHYSICIAN] - 06/24/21 2:45 pm Clair Benjamin MD [STAFF PHYSICIAN] - 10 Days (Office closed. Please call Thursday for appointment.) Kale Gramajo MD [Primary Care Provider] - 06/10/21 1:00 pm Patient Instructions/Handouts: Anemia (DC) Activity/Diet/Wound Care/Special Instructions: Resume Warfarin (Coumadin) on 06/10/2021 Discharge Disposition: HOME SELF-CARE
== END 2021-06-07 16:40 | disposition home or self-care (01) ==
LOC: EC 15:22 → 4SSUR 17:55 → INTOOBSV 17:55 → 4SSUR 18:57 → UNDODISIN 06-07 16:40
PROVIDERS: ADMIT Hospitalist; ATTEND Hospitalist
PROC: 30233N1 Transfusion of Nonautologous Red Blood Cells into Peripheral Vein, Percutaneous Approach (ICD-10-PCS; 2021-06-04)
PROC: 0DJ08ZZ Inspection of Upper Intestinal Tract, Via Natural or Artificial Opening Endoscopic (ICD-10-PCS; principal; 2021-06-06 09:45)
DX: D62 Acute posthemorrhagic anemia (principal); K29.71 Gastritis, unspecified, with bleeding; K21.01 Gastro-esophageal reflux disease with esophagitis, with bleeding; I48.0 Paroxysmal atrial fibrillation; E11.40 Type 2 diabetes mellitus with diabetic neuropathy, unspecified; I11.9 Hypertensive heart disease without heart failure; I45.10 Unspecified right bundle-branch block; I08.3 Combined rheumatic disorders of mitral, aortic and tricuspid valves; G25.81 Restless legs syndrome; G89.29 Other chronic pain; M54.40 Lumbago with sciatica, unspecified side; M54.10 Radiculopathy, site unspecified; M19.91 Primary osteoarthritis, unspecified site; E66.9 Obesity, unspecified; Z68.30 Body mass index [BMI] 30.0-30.9, adult; Z20.822 Contact with and (suspected) exposure to COVID-19; Z79.01 Long term (current) use of anticoagulants; Z79.84 Long term (current) use of oral hypoglycemic drugs; Z79.899 Other long term (current) drug therapy; Z87.01 Personal history of pneumonia (recurrent); Z86.19 Personal history of other infectious and parasitic diseases; Z96.653 Presence of artificial knee joint, bilateral; Z98.49 Cataract extraction status, unspecified eye; Z90.710 Acquired absence of both cervix and uterus; Z98.890 Other specified postprocedural states; Z86.010 Personal history of colon polyps; Z98.1 Arthrodesis status; Z82.49 Family history of ischemic heart disease and other diseases of the circulatory system; Z80.0 Family history of malignant neoplasm of digestive organs; Z82.0 Family history of epilepsy and other diseases of the nervous system
CPT/HCPCS: 96376; 36430; 96374; 99285; 36415; 93005; 86900; 86901; 83880; 80053; 80048; 83735; 84100; 84484; 85025 ×2; 85027 ×2; 85610 ×2; 85730; 86850; 86920; 82272; 81001; 87635; 71045; 43235; 91110; G0378 ×4; P9016; J2916; J2704; C9113 ×4

== ENCOUNTER 2022-02-18 09:17 | Day surgery (SDC) | payer MEDICARE ==
[~2022-02-18 09:17] MED LIST changes: -LIDOCAINE 1% (10MG/ML) FOR IV START INTRADERMA PRN; -PROPOFOL 10 MG/ML 20 ML VIAL IV ONE; +SODIUM CHLORIDE 0.9% 1,000 ML IV SCH
[2022-02-18 09:56] LABS: Glucose,Whole Blood 122 mg/dL (70-110)
[2022-02-18 10:19] LABS: INR 3.1 (<1.2); Prothrombin Time 31.2 sec (9.0-12.0)
[2022-02-18] MEDS ORDERED: PHENYLEPHRINE-0.9% NACL SYG 1,000 MCG/10 ML SYRINGE ONE (12:49)
[2022-02-18] MEDS ORDERED: PROPOFOL 10 MG/ML 20 ML VIAL IV ONE (12:49)
[2022-02-18] MEDS ORDERED: LIDOCAINE 1% INJ 10MG/ML (30 ML VIAL-PF) SQ ONE (13:21)
[2022-02-18] MEDS ORDERED: HEPARIN SOD,PORK IN 0.45% NACL 25,000 UNIT in 0.45% NACL 1 250ML.BAG IV ONE (13:25)
[2022-02-18] MEDS ORDERED: IOPAMIDOL-370 100ML BTL INJ ONE (14:30)
--- NOTE | 2022-02-18 15:25 | P.HPCAR ---
History of Present Illness This is Dr. Grant dictating an H/P on this patient The patient was interviewed and examined IMPRESSION / ASSESSMENT: Paroxysmal atrial fibrillation with RVR Moderate aortic stenosis Hypertension Dyslipidemia Recurrent symptoms of palpitations shortness of breath History of anemia secondary blood loss requiring transfusions in the past Sick sinus syndrome and bradycardia at night Type 2 diabetes PLAN: Pulmonary vein isolation for management of paroxysmal atrial fibrillation Continue anticoagulation Coumadin HPI Patient continues to have episodes of palpitations with RVR which are quite symptomatic This is a O because she is aortic stenosis and hypertensive heart disease She also had a history of GI bleeding in the past but I hemoglobin stabilized. She is on warfarin She also has mild Sick Sinus Syndrome ROS: No fever chills or rigors, no cough, phlegm or expectoration, no nausea, vomiting or diarrhea, no hematuria, dysuria, no musculoskeletal complaints, no strokes or seizures, no skin lesions. EXAMINATION: 98.0F, pulse rate in the 80s blood pressure 177/87 mmHg Murmur of aortic stenosis Normal breath sounds no rhonchi no crackles No JVD Abdomen soft Extremities are warm no edema REVIEW OF LABS, ECG & MEDICAL DATA Flecainide 100 mg twice daily, warfarin, metformin, metoprolol succinate 50 mrem in a.m., Lasix Physical Exam Vitals: Vital Signs Temp Pulse Resp BP Pulse Ox 02/18/22 10:00 98.2 F 85 16 177/87 97 Intake and Output 02/18/22 02/18/22 02/18/22 06:59 14:59 22:59 Intake Total 12 Balance 12 Intake: IV 12 Other: Weight 81.8 kg Past Medical History Past Medical History: Atrial Fibrillation, Diabetes Mellitus, GERD/Reflux, Hypertension, Osteoarthritis (OA), Pneumonia Additional Past Medical History / Comment(s): Afib/pt was to have cardiac ablation 06/06/21, murmur/"weak valve", NIDDM type II, neuropathy R foot, past anemia, chronic low back pain/herniated discs/DDD past sciatica and radiculopathy, RLS, bilateral lower leg/pedal edema History of Any Multi-Drug Resistant Organisms: None Reported Past Surgical History: Adenoidectomy, Back Surgery, Bladder Surgery, Breast Surgery, Heart Catheterization, Hysterectomy, Joint Replacement, Tonsillectomy Additional Past Surgical History / Comment(s): Lumbar fusion, lt knee arthrocopy, shai knee replacements, bilateral carpal tunnel releases, d&cx2, 2 ectopic pregnancies/ surgery, partial hyst, rt breast bx-neg, cystocele/rectocele repair, cataracts, colonoscopies/benign polypectomies. Past Anesthesia/Blood Transfusion Reactions: No Reported Reaction Additional Past Anesthesia/Blood Transfusion Reaction / Comment(s): PPt received blood without reaction. Past Psychological History: Anxiety Additional Psychological History / Comment(s): Pt resides with her spouse. She is independent. Smoking Status: Never smoker Past Alcohol Use History: None Reported Past Drug Use History: None Reported - Past Family History Mother Family Medical History: Cancer, Dementia Additional Family Medical History / Comment(s): irregular heart rythm, colon cancer, lived till she was 92 years old Father Family Medical History: Myocardial Infarction (AR) Additional Family Medical History / Comment(s): at age 62 from massive mi Physical Examination Vital Signs Temp Pulse Resp BP Pulse Ox 02/18/22 10:00 98.2 F 85 16 177/87 97 Intake and Output 02/18/22 02/18/22 02/18/22 06:59 14:59 22:59 Intake Total 12 Balance 12 Intake: IV 12 Other: Weight 81.8 kg Results Coagulation 02/18/22 Range/Units 09:50 PT 31.2 H (9.0-12.0) sec Current Medications Generic Name Dose Route Start Last Admin Trade Name Freq PRN Reason Stop Dose Admin Sodium Chloride 1,000 mls @ 20 mls/hr 02/18/22 05:31 02/18/22 09:50 Saline 0.9% IV 03/20/22 05:32 0 mls .Q24H SARA Administration Lactated Ringer's 1,000 mls @ 20 mls/hr 02/18/22 05:31 Lactated Ringers IV 03/20/22 05:32 .Q24H SARA Intake and Output 02/18/22 02/18/22 02/18/22 06:59 14:59 22:59 Intake Total 12 Balance 12 Intake: IV 12 Other: Weight 81.8 kg Patient Weight 02/19/22 06:59 Weight 81.8 kg
--- NOTE | 2022-02-18 15:39 | P.EPPROC ---
- EP Procedure Note Electrophysiology Procedure Note: PROCEDURE A. fib ablation/PVI DIAGNOSIS Atrial fibrillation, symptomatic, refractory to therapy RESULT No left atrial appendage mass seen on intracardiac echo Dilated left atrium Evidence of pericarditis with prominent pericardial stripe over the right ventricle and left ventricle Successful A. fib ablation/pulmonary vein isolation of all veins using cryo- ablation Complete entrance block in all 4 veins confirmed No evidence for phrenic nerve injury Septal ablation, left atrium Esophageal deflection YES , left-sided esophagus PROCEDURE DETAILS Patient was brought to the EP lab in a fasting state after obtaining written informed consent. Procedure performed under general anesthesia Esophagus was intubated. Esophageal temperature monitoring with circa catheter. Esophageal deflection with an endoscope to avoid hypothermia of the esophagus. After initial muscle relaxant use, muscle relaxants were not given thereafter in order to assess phrenic nerve during procedure. Patient prepped and draped as per protocol Cryo ablation-set up with standard preparation of the cryoablation tools done. Femoral Venous access obtained on the right and left groins and sheaths placed Diagnostic catheters for the high right atrium, phrenic nerve stimulation and pacing, His bundle, coronary sinus placed Intracardiac echo catheter placed. Long sheath placed in the right atrium Left and right transseptal catheterization performed under intracardiac echo guidance. Intravenous heparin with aCT above 300 Later, catheter positioning and balloon positioning in the left atrium and pulmonary veins, under intracardiac echo guidance Diagnostic EP study with coronary sinus pacing and recording Sinus cycle length 892 ms, GA interval 194 ms, URS 152 ms with a right bundle branch block morphology, QT 421 ms Sinus recovery times a 600, 504 100 ms were 1460, 05/01/2008 and 1280. Her swelling Sinus node recovery times were prolonged AV node Wenckebach block 330 ms VA Wenckebach block 490 ms Aysha response to Parahisian pacing Burst stimulation from the right atrium from 4 ms down to 300 ms, no distal atrial fibrillation after cryoablation Transseptal catheterization performed RA pressure 9/5/7 LA pressure 17/5/10 Transseptal catheterization performed with standard sheath. The cryoablation sheath was then placed with an over the wire exchange without any acute complications. The cryoablation balloon was placed in the office of each pulmonary vein and all 4 pulmonary veins were isolated. IV dye was injected to confirm occlusion. Goal: achieve complete occlusion of the pulmonary vein, achieve -30 degrees C at 30 seconds and achieve -40 degrees C at 60 seconds and a time to effect of less than 60 seconds. If not, the balloon was repositioned to obtain this result After completion of Cryoblation with durations from 180-240 seconds, entrance block was confirmed with the Attain circular catheter in a roving fashion around the antrum of the pulmonary veins Phrenic nerve pacing was performed from the SVC, right innominate vein area and diaphragm voltage was monitored. Diaphragmatic contractions were also monitored manually for strength of contraction. At the end of the procedure the Achieve catheter was once again used to check for entrance block Phrenic nerve stimulation was performed to confirm diaphragmatic stimulation the end of the procedure Pacing of the fentanyl was performed from the SVC just above the right severe pulmonary vein Finger pacing was also performed for location, from the upper branch as well as the lower branch of the right superior pulmonary vein Cryoablation was performed in the septum with cannulation of the lower branch of the right superior pulmonary vein to create a lesion on the septum that was confirmed on intracardiac echo Electrograms were ablated in this region successfully No phrenic nerve paresis Cine fluoroscopy was performed at the very end of the procedure to confirm movement of both diaphragms with inspiration and expiration At the end of the procedure the patient was extubated Venous sheaths were removed and hemostasis assured with a closure device PROCEDURES PERFORMED Diagnostic EP study CS pacing and recording Left and right transseptal catheterization Catheter the mapping of the tachycardia Intracardiac echocardiography Pulmonary vein isolation with transseptal and comprehensive EPS, [id number] Linear ablation, left atrium, [id number]
[2022-02-18] MEDS ORDERED: ACETAMINOPHEN IV (For NPO) 1,000 MG in EMPTY BAG 1 BAG IVPB ONE (16:00)
[2022-02-18 17:07] LABS: Glucose,Whole Blood 123 mg/dL (70-110)
[2022-02-18] MEDS: PANTOPRAZOLE 40 MG TABLET PO SCH (17:58)
[2022-02-18] MEDS: FLECAINIDE 50 MG TAB PO SCH (20:33)
[2022-02-18] MEDS ORDERED: ACETAMINOPHEN TAB 325 MG TAB PO PRN (23:00)
[2022-02-19 05:54] LABS: INR 2.9 (<1.2); Prothrombin Time 28.9 sec (9.0-12.0)
[2022-02-19] MEDS: PANTOPRAZOLE 40 MG TABLET PO SCH (06:36)
[2022-02-19 06:40] LABS: Glucose,Whole Blood 154 mg/dL (70-110)
[2022-02-19 06:49] VITALS: BP 146/76; PULSE 89; RESP 18; TEMP 98.1
[2022-02-19 07:38] LABS: Glucose,Whole Blood 150 mg/dL (70-110)
[2022-02-19] MEDS ORDERED: FUROSEMIDE 40 MG TAB PO SCH (09:00)
[2022-02-19] MEDS ORDERED: METOPROLOL SUCCINATE (ER) 50 MG TAB.ER.24H PO SCH (09:00)
[2022-02-19] MEDS ORDERED: GLIMEPIRIDE 2 MG TAB PO SCH (09:00)
[2022-02-19] MEDS ORDERED: MAGNESIUM OXIDE 400 MG TAB PO SCH (09:00)
[2022-02-19] MEDS: FLECAINIDE 50 MG TAB PO SCH (09:01)
--- NOTE | 2022-02-19 10:25 | P.DS ---
Providers Attending physician: Wil Grant Primary care physician: Charles Winkler DO Hospital Course: This is a 76-year-old patient who underwent atrial fibrillation ablation and pulmonary vein isolation with Dr. Grant on 02/18/2022. Patient is doing well post procedure. She denies chest pain or pressure. Denies shortness of breath. Vital signs are stable. She was deemed stable for discharge home today. Please see EMR for further hospital course details Discharge diagnosis Atrial fibrillation, symptomatic, refractory to therapy status post atrial fibrillation ablation and PVI Nurse practitioner note has been reviewed by physician. Signing provider agrees with the documented findings, assessment, and plan of care. Plan - Discharge Summary Discharge Rx Participant: No New Discharge Prescriptions: New Flecainide [Tambocor] 50 mg PO BID #180 tab Continue metFORMIN HCL [Glucophage] 1,000 mg PO BID Warfarin [Coumadin] 5 mg PO SUMOTUWETHSA Glucos Sul 2Kcl/MSM/Chond/C/Mn [Glucosamine Chondroitin Cap] 1 cap PO DAILY Glimepiride [Amaryl] 2 mg PO QAM Ergocalciferol (Vitamin D2) [Drisdol (50,000 Iu)] 1,250 mcg PO TH Magnesium 250 mg PO DAILY Metoprolol Succinate [Toprol XL] 50 mg PO QAM Omeprazole [PriLOSEC] 20 mg PO AC-BID #60 cap Ferrous Sulfate [Iron (65 MG Elemental)] 1 tab PO DAILY Furosemide [Lasix] 40 mg PO QAM Garlic 1,000 Mg 1,000 mg PO DAILY Discontinued Flecainide [Tambocor] 100 mg PO BID Discharge Medication List metFORMIN HCL [Glucophage] 1,000 mg PO BID 02/15/15 [History] Warfarin [Coumadin] 5 mg PO SUMOTUWETHSA 04/08/16 [History] Glucos Sul 2Kcl/MSM/Chond/C/Mn [Glucosamine Chondroitin Cap] 1 cap PO DAILY 02/02/19 [History] Glimepiride [Amaryl] 2 mg PO QAM 02/04/19 [History] Ergocalciferol (Vitamin D2) [Drisdol (50,000 Iu)] 1,250 mcg PO TH 03/05/21 [History] Furosemide [Lasix] 40 mg PO QAM 03/05/21 [History] Magnesium 250 mg PO DAILY 03/05/21 [History] Garlic 1,000 Mg 1,000 mg PO DAILY 06/04/21 [History] Metoprolol Succinate [Toprol XL] 50 mg PO QAM 06/04/21 [History] Omeprazole [PriLOSEC] 20 mg PO AC-BID #60 cap 06/07/21 [Rx] Ferrous Sulfate [Iron (65 MG Elemental)] 1 tab PO DAILY 02/17/22 [History] Flecainide [Tambocor] 50 mg PO BID #180 tab 02/19/22 [Rx] Follow up Appointment(s)/Referral(s): Charles Winkler DO [Primary Care Provider] - 1 Week
[2022-02-19] MEDS ORDERED: WARFARIN 5 MG TAB PO SCH (18:00)
[2022-02-20] MEDS ORDERED: metFORMIN 500 MG TAB PO SCH (21:00)
== END 2022-02-19 12:34 | disposition home or self-care (01) ==
LOC: CATHEP 09:17 → 6NMEDSUR 15:03 → CATHEP 02-19 12:34
PROVIDERS: ATTEND Internal Medicine Clinical Cardiac Electrophysiology
DX: I48.0 Paroxysmal atrial fibrillation (principal); I35.0 Nonrheumatic aortic (valve) stenosis; I11.9 Hypertensive heart disease without heart failure; E78.5 Hyperlipidemia, unspecified; I49.5 Sick sinus syndrome; E11.9 Type 2 diabetes mellitus without complications; F41.9 Anxiety disorder, unspecified; K21.9 Gastro-esophageal reflux disease without esophagitis; Z79.01 Long term (current) use of anticoagulants; Z79.899 Other long term (current) drug therapy
CPT/HCPCS: 93656; 93657; 85610 ×2; C1894; C1769 ×3; C1760; C1730 ×2; C1759; C1893; C1733; C1766; J2001; J2370; J2704; Q9967; J1644

== ENCOUNTER 2023-05-22 06:40 | Day surgery (SDC) | payer MEDICARE ==
[2023-05-20 09:04] VITALS: BMI 29.4
[2023-05-22] MEDS ORDERED: LIDOCAINE 1% (10MG/ML) FOR IV START INTRADERMA PRN (07:11)
[2023-05-22] MEDS: LACTATED RINGERS 1,000 ML IV SCH ×2 (07:25→07:38)
[2023-05-22 07:32] LABS: Glucose,Whole Blood 123 mg/dL (70-110)
[2023-05-22] MEDS ORDERED: PROPOFOL 10 MG/ML 20 ML VIAL IV ONE (07:44)
[2023-05-22] MEDS ORDERED: LIDOCAINE 1% INJ 10MG/ML (20 ML MDV) ONE (07:44)
[2023-05-22 07:46] VITALS: RESP 16; TEMP 97.3
--- NOTE | 2023-05-22 08:07 | P.PCN ---
Date of Procedure: 05/22/23 Procedure(s) Performed: Brief history: Patient is a pleasant 77-year-old white female scheduled for an elective upper endoscopy as well as colonoscopy as a part of evaluation of iron deficiency anemia. She has history of A. fib and has been on Coumadin which has been on hold for the last 6 weeks. He denies any active GI bleed. Procedure performed: Esophagogastroduodenoscopy with biopsy and the cautery Colonoscopy with biopsy. Preoperative diagnosis: Iron deficiency anemia Anesthesia: MAC Procedure: After informed consent was obtained from the patient was brought into the endoscopy unit and IV sedation was administered by anesthesia under continuous monitoring. Initially upper endoscopy was done. The Olympus GF 160 video endoscope was inserted inserted into the mouth and esophagus intubated without any difficulty and was gradually advanced into the stomach and duodenum and carefully examined. The bulb and second part of the duodenum appeared normal. Biopsies of the duodenum to evaluate for celiac disease. The scope was then withdrawn into the stomach adequately insufflated with air and upon careful examination the antrum and gastritis and biopsies were done from this area. Also in the antrum there was a 5 mm nonbleeding angiectasia identified which was cauterized using a gold probe. Mucosa of the and body, cardia and fundus appeared normal. The scope was then withdrawn into the esophagus. The GE junction was located at 40 cm to the incisors. It appeared regular with no erythema erosions or ulcerations. Rest of the esophagus appeared normal. Patient tolerated the procedure well. At this time the patient continued to remain sedation. Initial digital rectal examination was normal. Olympus CF 160 video colonoscope was then inserted into the rectum and gradually advanced to the cecum without any difficulty. Careful examination was performed as the scope was gradually being withdrawn. The prep was excellent. The cecum, ascending colon, transverse colon, we normal. The descending colon there was a 5 mm polyp that was removed by cold biopsy. Rest of the descending colon, sigmoid colon and rectum appeared normal. Retroflexion was performed in the rectum and no lesions were noted. Patient tolerated the procedure well. Impression: 1. Upper endoscopy revealed a 5 mm gastric antral vascular ectasia status post cautery using a gold probe and mild antral gastritis 2. Colonoscopy revealed 5 mm descending colon polyp status post cold biopsy. Recommendations: Findings of this examination were discussed with the patient as well as her family. She was advised to continue with iron supplements. Follow with the biopsy results. Monitor CBC periodically.
[2023-05-22 08:41] VITALS: BP 156/82; PULSE 68
== END 2023-05-22 08:47 ==
LOC: ORWHC2ENDO 06:40
PROVIDERS: ATTEND Internal Medicine Gastroenterology
DX: D12.4 Benign neoplasm of descending colon (principal); K31.819 Angiodysplasia of stomach and duodenum without bleeding; K29.50 Unspecified chronic gastritis without bleeding; K31.A11 Gastric intestinal metaplasia without dysplasia, involving the antrum; D50.9 Iron deficiency anemia, unspecified; K21.9 Gastro-esophageal reflux disease without esophagitis; Z80.0 Family history of malignant neoplasm of digestive organs; Z79.84 Long term (current) use of oral hypoglycemic drugs; Z79.899 Other long term (current) drug therapy; Z79.01 Long term (current) use of anticoagulants
CPT/HCPCS: 88305; 45380; 43239; 43255; J2001; J2704

== ENCOUNTER 2023-10-29 00:25 | Observation (INO) | payer MEDICARE ==
[2023-10-29 01:04] LABS: Anisocytosis Slight; Basophils % (A) 1 %; Eosinophils # (A) 0.3 k/uL (0-0.7); Eosinophils % (A) 7 %; HCT 27.7 % (34.0-46.0); HGB 9.2 gm/dL (11.4-16.0); Hypochromasia Moderate; Lymphocytes # (A) 1.1 k/uL (1.0-4.8); Lymphocytes % (A) 22 %; MCH 31.9 pg (25.0-35.0); MCHC 33.4 g/dL (31.0-37.0); MCV 95.6 fL (80.0-100.0); Mean Platelet Volume 8.2; Monocytes # (A) 0.4 k/uL (0-1.0); Monocytes % (A) 8 %; Neutrophils # (A) 3.1 k/uL (1.3-7.7); Neutrophils % (A) 61 %; Platelet Count 164 k/uL (150-450); RBC 2.89 m/uL (3.80-5.40); RDW 17.8 % (11.5-15.5)
[2023-10-29 01:18] LABS: INR 0.9 (<1.2); Partial Thromboplastin Time 23.3 sec (22.0-30.0); Prothrombin Time 10.5 sec (10.0-12.5)
[2023-10-29 01:20] LABS: ALT 18 U/L (4-34); AST 27 U/L (14-36); African American GFR (CKD) 56 (>60 ml/min/1.73 sqM); Albumin 4.1 g/dL (3.5-5.0); Alkaline Phosphatase 87 U/L (38-126); Anion Gap 14 mmol/L; Blood Urea Nitrogen 34 mg/dL (7-17); Calcium 9.2 mg/dL (8.4-10.2); Carbon Dioxide 15 mmol/L (22-30); Chloride 109 mmol/L (98-107); Glucose 129 mg/dL (74-99); Magnesium 1.7 mg/dL (1.6-2.3); Non-African American GFR(CKD) 49 (>60 ml/min/1.73 sqM); Potassium 4.8 mmol/L (3.5-5.1); Sodium 138 mmol/L (137-145); Total Bilirubin 0.2 mg/dL (0.2-1.3); Total Protein 6.1 g/dL (6.3-8.2)
[2023-10-29] MEDS: ASPIRIN 81 MG PO STA (01:21)
--- NOTE | 2023-10-29 01:47 | ED ---
Chest Pain HPI - General Chief Complaint: Chest Pain Stated Complaint: chest pain headache Time Seen by Provider: 10/29/23 00:38 Source: patient, RN notes reviewed Mode of arrival: ambulatory Limitations: no limitations - History of Present Illness Initial Comments: 77-year-old female with a past medical history significant for A-fib status post ablation with Watch[facility] presenting to the ED with a chief complaint of chest pain. Patient states around 6 PM started to note pain on the left side of her chest, nonradiating with some associated diaphoresis and headache. No associated shortness of breath. No abdominal pain. No change in bowel or bladder habits. No other complaints at this time. Did not take any aspirin or nitro prior to arrival. - Related Data Home Medications Medication Instructions Recorded Confirmed metFORMIN HCL [Glucophage] 1,000 mg PO BID 02/15/15 05/22/23 Glucos Sul 2Kcl/MSM/Chond/C/Mn 1 cap PO DAILY 02/02/19 05/22/23 [Glucosamine Chondroitin Cap] Glimepiride [Amaryl] 2 mg PO QAM 02/04/19 05/22/23 Ergocalciferol (Vitamin D2) 1,250 mcg PO TH 03/05/21 05/22/23 [Drisdol (50,000 Iu)] Furosemide [Lasix] 40 mg PO QAM 03/05/21 05/22/23 Magnesium 250 mg PO DAILY 03/05/21 05/22/23 Ferrous Sulfate [Iron (65 MG 1 tab PO DAILY 02/17/22 05/20/23 Elemental)] Cholecalciferol [Vitamin D3 (25 25 mcg PO DAILY 05/20/23 05/22/23 Mcg = 1000 Iu)] Garlic. 2400 Mg 2,400 mg PO DAILY 05/20/23 05/22/23 Metoprolol Succinate (ER) [Toprol 50 mg PO DAILY 05/20/23 05/22/23 Xl] PARoxetine [Paxil] 20 mg PO DAILY 05/20/23 05/22/23 Potassium Gluconate 99 mg PO DAILY 05/20/23 05/22/23 lisinopriL 30 mg PO DAILY 05/20/23 05/22/23 rOPINIRole HCL [Requip] 0.5 mg PO HS 05/20/23 05/22/23 Previous Rx's Medication Instructions Recorded Omeprazole [PriLOSEC] 20 mg PO AC-BID #60 cap 06/07/21 Allergies Allergy/AdvReac Type Severity Reaction Status Date / Time No Known Allergies Allergy Verified 10/29/23 00:31 Review of Systems ROS Statement: Those systems with pertinent positive or pertinent negative responses have been documented in the HPI. ROS Other: All systems not noted in ROS Statement are negative. Past Medical History Past Medical History: Atrial Fibrillation, Diabetes Mellitus, GERD/Reflux, Hypertension, Osteoarthritis (OA), Pneumonia Additional Past Medical History / Comment(s): Afib/pt was to have cardiac ablation 06/06/21, murmur/"weak valve", NIDDM type II, neuropathy R foot, past anemia, chronic low back pain/herniated discs/DDD past sciatica and radiculopathy, RLS, History of Any Multi-Drug Resistant Organisms: None Reported Past Surgical History: Adenoidectomy, Back Surgery, Bladder Surgery, Breast Surgery, Heart Catheterization, Hysterectomy, Joint Replacement, Tonsillectomy Additional Past Surgical History / Comment(s): Lumbar fusion, lt knee arthrocop y, shai knee replacements, bilateral carpal tunnel releases, d&cx2, 2 ectopic pregnancies/ surgery, partial hyst, rt breast bx-neg, cystocele/rectocele repair, cataracts, colonoscopies/benign polypectomies. Past Anesthesia/Blood Transfusion Reactions: No Reported Reaction Additional Past Anesthesia/Blood Transfusion Reaction / Comment(s): Pt received blood without reaction. Past Psychological History: Anxiety Smoking Status: Never smoker - Past Family History Mother Family Medical History: Cancer, Dementia Additional Family Medical History / Comment(s): irregular heart rythm, colon cancer, lived till she was 92 years old Father Family Medical History: Myocardial Infarction (ND) Additional Family Medical History / Comment(s): at age 62 from massive mi General Exam Limitations: no limitations General appearance: alert, in no apparent distress Eye exam: Present: normal appearance Neck exam: Present: normal inspection Respiratory exam: Present: normal lung sounds bilaterally, other (Chest pain not reproducible on palpation.) Cardiovascular Exam: Present: regular rate GI/Abdominal exam: Present: soft, normal bowel sounds. Absent: distended, tenderness, guarding, rebound, rigid Neurological exam: Present: alert, oriented X3 Skin exam: Present: warm, dry Course Vital Signs 10/29/23 10/29/23 10/29/23 00:28 01:23 02:01 Temperature 97.7 F Pulse Rate 79 70 71 Respiratory 18 20 18 Rate Blood Pressure 133/69 132/67 100/72 O2 Sat by Pulse 99 96 97 Oximetry Chest Pain MDM - MDM Was pt. sent in by a medical professional or institution ([facility], [employer], urgent care, hospital, or care home...) When possible be specific @ -No Did you speak to anyone other than the patient for history (EMS, parent, family, police, friend...)? What history was obtained from this source @ -No Did you review nursing and triage notes (agree or disagree)? Why? @ -I reviewed and agree with nursing and triage notes Were old charts reviewed (outside hosp., previous admission, EMS record, old EKG, old radiological studies, urgent care reports/EKG's, care home records)? Report findings @ -No old charts were reviewed Differential Diagnosis (chest pain, altered mental status, abdominal pain women, abdominal pain men, vaginal bleeding, weakness, fever, dyspnea, syncope, headache, dizziness, GI bleed, back pain, seizure, CVA, palpatations, mental health, musculoskeletal)? @ -Differential Chest Pain: Stable Angina, Unstable Angina, STEMI, NSTEMI Aortic Dissection, Pneumothorax, Musculoskeletal, Esophageal Spasm GERD, Cholecystitis, Pancreatitis, Zoster, this is not meant to be an all-inclusive list. EKG interpreted by me (3pts min.). @ -EKG interpreted by me showing sinus rhythm with a right bundle branch block rate of 78 bpm, SD 198, QRS 138, PT/QTc 393/4 concern. X-rays interpreted by me (1pt min.). @ -X-ray pending official radiology read at this time. CT interpreted by me (1pt min.). @ -None done U/S interpreted by me (1pt. min.). @ -None done What testing was considered but not performed or refused? (CT, X-rays, U/S, labs)? Why? @ -None What meds were considered but not given or refused? Why? @ -None Did you discuss the management of the patient with other professionals (professionals i.e. [facility], [employer], lab, RT, psych nurse, manager social work, reconcilement clerk, teacher, chief accounting officer, telephonic nurse case manager)? Give summary @ -Case discussed with Dr. Figueroa, who accepts admission. Was smoking cessation discussed for >3mins.? @ -No Was critical care preformed (if so, how long)? @ -No Were there social determinants of health that impacted care today? How? (Homelessness, low income, unemployed, alcoholism, drug addiction, transportation, low edu. Level, literacy, decrease access to med. care, fpc, rehab)? @ -No Was there de-escalation of care discussed even if they declined (Discuss DNR or withdrawal of care, Hospice)? DNR status @ -No What co-morbidities impacted this encounter? (DM, HTN, Smoking, COPD, CAD, Cancer, CVA, ARF, Chemo, Hep., AIDS, mental health diagnosis, sleep apnea, morbid obesity)? @ -A-fib Was patient admitted / discharged? Hospital course, mention meds given and route, prescriptions, significant lab abnormalities, going to OR and other pertinent info. @ -Admission 77-year-old female presenting to the ED with complaints of chest which is left- sided onset today with some associated diaphoresis and headache. At this time, patient reports pain is almost completely resolved. Laboratory studies reviewed. CBC largely unremarkable. Repeat pending at this time. Patient will be admitted to observation with consult to cardiology. Undiagnosed new problem with uncertain prognosis? @ -No Drug Therapy requiring intensive monitoring for toxicity (Heparin, Nitro, Insulin, Cardizem)? @ -No Were any procedures done? @ -No Diagnosis/symptom? @ -Chest pain Acute, or Chronic, or Acute on Chronic? @ -Acute Uncomplicated (without systemic symptoms) or Complicated (systemic symptoms)? @ -Complicated Side effects of treatment? @ -No Exacerbation, Progression, or Severe Exacerbation? @ -No Poses a threat to life or bodily function? How? (Chest pain, [place], [place], pneumonia, PE, COPD, DKA, ARF, appy, cholecystitis, CVA, Diverticulitis, Homicidal, Suicidal, threat to staff... and all critical care pts) @ -Possibly Disposition Clinical Impression: Chest pain Disposition: ADMITTED IP TO THIS [facility] Condition: Good Referrals: Tim Martinez MD [Primary Care Provider] - 1-2 days Time of Disposition: 03:12
[2023-10-29] MEDS: NITROGLYCERIN SL TABS 0.4 MG TAB SUBLINGUAL PRN (01:59)
[2023-10-29] MEDS ORDERED: ONDANSETRON 4 MG/2 ML VIAL IVP PRN (03:12)
[2023-10-29] MEDS ORDERED: NALOXONE 0.4 MG/ML 1 ML VIAL IV PRN (03:12)
--- NOTE | 2023-10-29 03:18 | P.HPIM ---
History of Present Illness H&P Date: 10/29/23 Patient is a 77-year-old female with a PMH of A-fib (not on anticoagulation due to history of multiple GI bleeds, status post Watchman placed 1 month ago), severe aortic stenosis scheduled for replacement, type II DM, and hypertension who presents to the emergency room with complaints of chest discomfort. Patient reports that she was in her usual state of health until about 5 PM when she suddenly developed this left-sided sharp chest discomfort with associated diaphoresis and headache. The pain was 9 out of 10 at maximal intensity, nonpleuritic, nonradiating. The pain was nonexertional with no alleviating or exacerbating features. She reports that the pain lasted for roughly 5 to 6 hours until she arrived at the emergency room and it subsequently resolved and has not recurred. She reported feeling at her baseline at the time of interview. Denied experiencing associated shortness of breath, palpitations, fever, chills, cough, nausea, vomiting, diarrhea. EKG in the emergency room revealed sinus rhythm with left axis deviation with a right bundle branch block at 78 bpm as reviewed by me. Laboratory evaluation was remarkable for troponin 0.018, BUN 34, creatinine 1.10 (baseline 0.9), CO2 15, with hemoglobin 9.2 (at baseline). ED documentation reviewed and case discussed with ED provider. Review of systems: Pertinent positives and negatives as discussed in HPI, a complete review of systems was performed and all other systems are negative. Physical examination: Vital signs reviewed General: non toxic, no distress, appears at stated age, overweight Derm: no unusual rashes/lesions, warm Head: atraumatic, normocephalic, symmetric Eyes: EOMI, no lid lag, anicteric sclera, pupils equal round reactive to light ENT: Nose and ears atraumatic Neck: No cervical lymphadenopathy, trachea midline, supple Mouth: no lip lesion, mucus membranes moist Cardiovascular: S1S2 reg, grade 3 systolic murmur appreciated sitive dorsalis pedis pulse bilateral, no edema Lungs: CTA bilateral, no rhonchi, no rales, no accessory muscle use Abdominal: soft, nontender to palpation, no guarding Ext: muscle strength 5 out of 5 in all 4 extremities grossly, no gross muscle atrophy, no contractures, Neuro: CN II-XI grossly intact, no gross focal neuro deficits Psych: Alert, oriented, appropriate affect Assessment: Chest pain, rule out ACS Chronic conditions: A-fib, severe aortic stenosis, type II DM, and hypertension Imaging: EKG in the emergency room revealed sinus rhythm with left axis deviation with a right bundle branch block at 78 bpm as reviewed by me. Data Review: Laboratory evaluation was remarkable for troponin 0.018, BUN 34, creatinine 1.10 (baseline 0.9), CO2 15, with hemoglobin 9.2 (at baseline). Plan: Cardiology consulted Cardiac monitoring Trend troponin Continue with aspirin and statin Insulin sign scale and blood glucose monitoring Resume home medications DVT prophylaxis: Will Lovenox subcu The patient is admitted with an anticipated less than 2 midnight stay for evaluation of chest pain CODE STATUS: Full Code Discussed with: Patient Anticipated discharge place: Home Past Medical History Past Medical History: Atrial Fibrillation, Diabetes Mellitus, GERD/Reflux, Hypertension, Osteoarthritis (OA), Pneumonia Additional Past Medical History / Comment(s): Afib/pt was to have cardiac ablation 06/06/21, murmur/"weak valve", NIDDM type II, neuropathy R foot, past anemia, chronic low back pain/herniated discs/DDD past sciatica and radiculopathy, RLS, History of Any Multi-Drug Resistant Organisms: None Reported Past Surgical History: Adenoidectomy, Back Surgery, Bladder Surgery, Breast Surgery, Heart Catheterization, Hysterectomy, Joint Replacement, Tonsillectomy Additional Past Surgical History / Comment(s): Lumbar fusion, lt knee arthrocopy, shai knee replacements, bilateral carpal tunnel releases, d&cx2, 2 ectopic pregnancies/ surgery, partial hyst, rt breast bx-neg, cystocele/rectocele repair, cataracts, colonoscopies/benign polypectomies. Past Anesthesia/Blood Transfusion Reactions: No Reported Reaction Additional Past Anesthesia/Blood Transfusion Reaction / Comment(s): Pt received blood without reaction. Past Psychological History: Anxiety Smoking Status: Never smoker - Past Family History Mother Family Medical History: Cancer, Dementia Additional Family Medical History / Comment(s): irregular heart rythm, colon cancer, lived till she was 92 years old Father Family Medical History: Myocardial Infarction ([place]) Additional Family Medical History / Comment(s): at age 62 from massive mi Medications and Allergies Home Medications Medication Instructions Recorded Confirmed Type metFORMIN HCL [Glucophage] 1,000 mg PO BID 02/15/15 05/22/23 History Glucos Sul 2Kcl/MSM/Chond/C/Mn 1 cap PO DAILY 02/02/19 05/22/23 History [Glucosamine Chondroitin Cap] Glimepiride [Amaryl] 2 mg PO QAM 02/04/19 05/22/23 History Ergocalciferol (Vitamin D2) 1,250 mcg PO TH 03/05/21 05/22/23 History [Drisdol (50,000 Iu)] Furosemide [Lasix] 40 mg PO QAM 03/05/21 05/22/23 History Magnesium 250 mg PO DAILY 03/05/21 05/22/23 History Omeprazole [PriLOSEC] 20 mg PO AC-BID #60 cap 06/07/21 05/22/23 Rx Ferrous Sulfate [Iron (65 MG 1 tab PO DAILY 02/17/22 05/20/23 History Elemental)] Cholecalciferol [Vitamin D3 (25 25 mcg PO DAILY 05/20/23 05/22/23 History Mcg = 1000 Iu)] Garlic. 2400 Mg 2,400 mg PO DAILY 05/20/23 05/22/23 History Metoprolol Succinate (ER) [Toprol 50 mg PO DAILY 05/20/23 05/22/23 History Xl] PARoxetine [Paxil] 20 mg PO DAILY 05/20/23 05/22/23 History Potassium Gluconate 99 mg PO DAILY 05/20/23 05/22/23 History lisinopriL 30 mg PO DAILY 05/20/23 05/22/23 History rOPINIRole HCL [Requip] 0.5 mg PO HS 05/20/23 05/22/23 History Allergies Allergy/AdvReac Type Severity Reaction Status Date / Time No Known Allergies Allergy Verified 10/29/23 00:31 Physical Exam Vitals: Vital Signs Temp Pulse Resp BP Pulse Ox 10/29/23 02:01 71 18 100/72 97 10/29/23 01:23 70 20 132/67 96 10/29/23 00:28 97.7 F 79 18 133/69 99 Intake and Output 10/28/23 10/28/23 10/29/23 14:59 22:59 06:59 Other: Weight 80.286 kg Results CBC & Chem 7: 10/29/23 00:44 10/29/23 00:44 Labs: Abnormal Lab Results - Last 24 Hours (Table) 10/29/23 10/29/23 Range/Units 00:44 00:44 RBC 2.89 L (3.80-5.40) m/uL Hgb 9.2 L (11.4-16.0) gm/dL Hct 27.7 L (34.0-46.0) % RDW 17.8 H (11.5-15.5) % Chloride 109 H (98-107) mmol/L Carbon Dioxide 15 L (22-30) mmol/L BUN 34 H (7-17) mg/dL Creatinine 1.10 H (0.52-1.04) mg/dL Glucose 129 H (74-99) mg/dL Total Protein 6.1 L (6.3-8.2) g/dL
[2023-10-29] MEDS: MELATONIN 5 MG TABLET PO STA ×2 (03:37→03:49)
[2023-10-29] MEDS: SODIUM CHLORIDE 0.9% 1,000 ML IV SCH (03:50)
--- NOTE | 2023-10-29 04:18 | XR ---
EXAM: XR Chest, 2 Views CLINICAL HISTORY: ITS.REASON XR Reason: Chest Pain TECHNIQUE: Frontal and lateral views of the chest. COMPARISON: Comparison made to prior portable chest x-ray from June 04, 2021. FINDINGS: Lungs: Also moderate peribronchial thickening of the central bronchi with increased surrounding interstitial opacities. No consolidation. Pleural space: Unremarkable. No pneumothorax. Heart: Unremarkable. No cardiomegaly. Mediastinum: Unremarkable. Normal mediastinal contour. Bones/joints: Unremarkable. No acute fracture. IMPRESSION: Findings concerning for bronchitis with pneumonitis, which may be infectious or inflammatory etiologies. No consolidation or pleural effusion.
[2023-10-29] MEDS: METOPROLOL SUCCINATE (ER) 50 MG TAB.ER.24H PO SCH (09:02)
[2023-10-29] MEDS: ASPIRIN 81 MG PO SCH (09:02)
[2023-10-29] MEDS: CLOPIDOGREL 75 MG TAB PO SCH (09:02)
--- NOTE | 2023-10-29 10:00 | P.CRDCN ---
History of Present Illness History of present illness: HISTORY OF PRESENT ILLNESS: This is a 77-year-old female with a past medical history significant for hypertension, hyperlipidemia, diabetes, atrial fibrillation s/p watchman, moderate to severe aortic stenosis, anemia, GI bleed, and anxiety. Patient follows in the office with Dr. Winkler. We have been asked to see the patient in consultation for chest pain. Patient examined at the bedside in the emergency room. Patient states she began to have chest discomfort yesterday at around 5:00 in the afternoon. She states that she was just relaxing at home. She states she had the pain for several hours at home and the pain was gone by the time she got to the hospital. She states that she did receive nitro when she came to the hospital but her pain was already gone at that point. She denies having any further episodes of chest pain or pressure since that time. The patient recently underwent Watchman device on September 23, 2023. She is scheduled for outpatient ARTURO and cardiac catheterization on November 09, [address] Winkler. DIAGNOSTICS: - EKG reveals sinus mechanism with right bundle branch block. - Chest xray findings concerning for bronchitis with pneumonitis which may be infectious or inflammatory etiology. - Laboratory data: WBC 5.0. Hemoglobin 9.2. Platelet count 164. Sodium 138. Potassium 4.8. BUN 34. Creatinine 1.10. Troponin 0.018. 0.021. - Current home cardiac medication list has not been updated - Most recent echocardiogram obtained in March 2023 revealed ejection fraction 55 to 60%, mild MR, mild TR, trace AR, and moderate to severe aortic stenosis REVIEW OF SYSTEMS: At the time of my exam: CONSTITUTIONAL: Denies fever or chills. HEENT: Denies blurred vision, vision changes, or eye pain. Denies hemoptysis CARDIOVASCULAR: Denies chest pain. Denies orthopnea. Denies PND. Denies palpitations RESPIRATORY: Denies shortness of breath. GASTROINTESTINAL: Denies abdominal pain. Denies nausea or vomiting. HEMATOLOGIC: Denies bleeding disorders. GENITOURINARY: Denies any blood in urine. SKIN: Denies pruitis. Denies rash. PHYSICAL EXAM: VITAL SIGNS: Reviewed. GENERAL: Well-developed in no acute distress. HEENT: Head is normocephalic. Pupils are equal, round. Sclerae anicteric. Mucous membranes of the mouth are moist. Neck supple. No JVD or thyromegaly LUNGS: Respirations even and unlabored. Lungs essentially clear to auscultation bilaterally. HEART: Regular rate and rhythm. S1 and S2 heard. Systolic murmur noted. ABDOMEN: Soft. Nondistended. Nontender. EXTREMITIES: Normal range of motion. No clubbing or cyanosis. Peripheral pulses intact. No lower extremity edema NEUROLOGIC: Awake and alert. Oriented x 3. ASSESSMENT: Chest pain Hypertension Hyperlipidemia Diabetes Paroxysmal atrial fibrillation Status post Watchman device, 09/23/2023 History of A-fib ablation History of GI bleeds unable to tolerate anticoagulation Moderate to severe aortic stenosis Anxiety PLAN: An acute coronary event has been ruled out Add atorvastatin 20 mg at night Resume metoprolol succinate 50 mg daily Continue to hold other antihypertensive medications as blood pressure is on the lower side with a systolic around [id number]. Continue dual antiplatelet therapy with aspirin and Plavix due to recent Watchman device Patient is scheduled for outpatient ARTURO and cardiac catheterization on November 09, 2023 Dr. Winkler Discussed options with patient including staying in the hospital until tomorrow to possibly have procedure performed or continue outpatient as scheduled Patient would prefer to be discharged home today as she has had no further episodes of chest pain and feels comfortable going home Recommend patient be discharged home with sublingual nitro. Patient instructed not to take sublingual nitro more than twice. If she is still having chest discomfort after taking nitro twice, she was instructed to come to the emergency room due to ongoing chest pain and also risk of hypotension with aortic stenosis which could lead to syncope. Patient verbalized understanding Patient is stable for discharge home today from a cardiac standpoint Nurse practitioner note has been reviewed by physician. Signing provider agrees with the documented findings, assessment, and plan of care documented by VIDEO GAME PROGRAMMER as a scribe. Past Medical History Past Medical History: Atrial Fibrillation, Diabetes Mellitus, GERD/Reflux, Hypertension, Osteoarthritis (OA), Pneumonia Additional Past Medical History / Comment(s): Afib/pt was to have cardiac ablation 06/06/21, murmur/"weak valve", NIDDM type II, neuropathy R foot, past anemia, chronic low back pain/herniated discs/DDD past sciatica and radiculopathy, RLS, History of Any Multi-Drug Resistant Organisms: None Reported Past Surgical History: Adenoidectomy, Back Surgery, Bladder Surgery, Breast Surgery, Heart Catheterization, Hysterectomy, Joint Replacement, Tonsillectomy Additional Past Surgical History / Comment(s): Lumbar fusion, lt knee arthroco py, shai knee replacements, bilateral carpal tunnel releases, d&cx2, 2 ectopic pregnancies/ surgery, partial hyst, rt breast bx-neg, cystocele/rectocele repair, cataracts, colonoscopies/benign polypectomies. Past Anesthesia/Blood Transfusion Reactions: No Reported Reaction Additional Past Anesthesia/Blood Transfusion Reaction / Comment(s): Pt received blood without reaction. Past Psychological History: Anxiety Smoking Status: Never smoker - Past Family History Mother Family Medical History: Cancer, Dementia Additional Family Medical History / Comment(s): irregular heart rythm, colon cancer, lived till she was 92 years old Father Family Medical History: Myocardial Infarction ([place]) Additional Family Medical History / Comment(s): at age 62 from massive mi Medications and Allergies Home Medications Medication Instructions Recorded Confirmed Type metFORMIN HCL [Glucophage] 1,000 mg PO BID 02/15/15 05/22/23 History Glucos Sul 2Kcl/MSM/Chond/C/Mn 1 cap PO DAILY 02/02/19 05/22/23 History [Glucosamine Chondroitin Cap] Glimepiride [Amaryl] 2 mg PO QAM 02/04/19 05/22/23 History Ergocalciferol (Vitamin D2) 1,250 mcg PO TH 03/05/21 05/22/23 History [Drisdol (50,000 Iu)] Furosemide [Lasix] 40 mg PO QAM 03/05/21 05/22/23 History Magnesium 250 mg PO DAILY 03/05/21 05/22/23 History Omeprazole [PriLOSEC] 20 mg PO AC-BID #60 cap 06/07/21 05/22/23 Rx Ferrous Sulfate [Iron (65 MG 1 tab PO DAILY 02/17/22 05/20/23 History Elemental)] Cholecalciferol [Vitamin D3 (25 25 mcg PO DAILY 05/20/23 05/22/23 History Mcg = 1000 Iu)] Garlic. 2400 Mg 2,400 mg PO DAILY 05/20/23 05/22/23 History Metoprolol Succinate (ER) [Toprol 50 mg PO DAILY 05/20/23 05/22/23 History Xl] PARoxetine [Paxil] 20 mg PO DAILY 05/20/23 05/22/23 History Potassium Gluconate 99 mg PO DAILY 05/20/23 05/22/23 History lisinopriL 30 mg PO DAILY 05/20/23 05/22/23 History rOPINIRole HCL [Requip] 0.5 mg PO HS 05/20/23 05/22/23 History Clopidogrel [Plavix] 75 mg PO DAILY 10/29/23 10/29/23 History Allergies Allergy/AdvReac Type Severity Reaction Status Date / Time No Known Allergies Allergy Verified 10/29/23 09:57 Physical Exam Vitals: Vital Signs Temp Pulse Resp BP Pulse Ox 10/29/23 06:00 66 18 109/49 95 10/29/23 04:00 69 18 111/47 97 10/29/23 03:21 68 15 105/49 97 10/29/23 02:01 71 18 100/72 97 10/29/23 01:23 70 20 132/67 96 10/29/23 00:28 97.7 F 79 18 133/69 99 Intake and Output 10/28/23 10/29/23 10/29/23 22:59 06:59 14:59 Other: Weight 80.286 kg Results 10/29/23 00:44 10/29/23 00:44 Cardiac Enzymes 10/29/23 10/29/23 10/29/23 Range/Units 00:44 00:44 03:33 AST 27 (14-36) U/L Troponin I 0.018 0.021 (0.000-0.034) ng/mL Coagulation 10/29/23 Range/Units 00:44 PT 10.5 (10.0-12.5) sec APTT 23.3 (22.0-30.0) sec CBC 10/29/23 Range/Units 00:44 WBC 5.0 (3.8-10.6) k/uL RBC 2.89 L (3.80-5.40) m/uL Hgb 9.2 L (11.4-16.0) gm/dL Hct 27.7 L (34.0-46.0) % Plt Count 164 (150-450) k/uL Comprehensive Metabolic Panel 10/29/23 Range/Units 00:44 Sodium 138 (137-145) mmol/L Potassium 4.8 (3.5-5.1) mmol/L Chloride 109 H (98-107) mmol/L Carbon Dioxide 15 L (22-30) mmol/L BUN 34 H (7-17) mg/dL Creatinine 1.10 H (0.52-1.04) mg/dL Glucose 129 H (74-99) mg/dL Calcium 9.2 (8.4-10.2) mg/dL AST 27 (14-36) U/L ALT 18 (4-34) U/L Alkaline Phosphatase 87 (38-126) U/L Total Protein 6.1 L (6.3-8.2) g/dL Albumin 4.1 (3.5-5.0) g/dL Current Medications Generic Name Dose Route Start Last Admin Trade Name Freq PRN Reason Stop Dose Admin Sodium Chloride 1,000 mls @ 20 mls/hr 10/29/23 03:15 10/29/23 03:50 Saline 0.9% IV 20 mls/hr .Q24H SARA Administration Naloxone HCl 0.2 mg 10/29/23 03:12 Naloxone 0.4 Mg/Ml 1 Ml Vial IV Q2M PRN Opioid Reversal Nitroglycerin 0.4 mg 10/29/23 00:47 10/29/23 01:59 Nitroglycerin Sl Tabs 0.4 Mg Tab SUBLINGUAL 0.4 mg Q5M PRN Administration Chest Pain Ondansetron HCl 4 mg 10/29/23 03:12 Ondansetron 4 Mg/2 Ml Vial IVP Q8HR PRN Nausea And Vomiting Intake and Output 10/28/23 10/29/23 10/29/23 22:59 06:59 14:59 Other: Weight 80.286 kg 10/29/23 00:44 10/29/23 00:44
--- NOTE | 2023-10-29 11:06 | P.DS ---
Providers Date of admission: 10/29/23 05:44 Expected date of discharge: 10/29/23 Attending physician: Eloise Figueroa MD Consults: 10/29/23 03:12 Consult Physician Urgent Consulting Provider: [facility] Consult Reason/Comments: Chest pain Do you want consulting provider notified?: Yes Primary care physician: Tim Martinez MD Hospital Course: Discharge diagnosis: Chest pain, rule out ACS Chronic conditions: A-fib, severe aortic stenosis, type II DM, and hypertension H&P Date: 10/29/23 Patient is a 77-year-old female with a PMH of A-fib (not on anticoagulation due to history of multiple GI bleeds, status post Watchman placed 1 month ago), severe aortic stenosis scheduled for replacement, type II DM, and hypertension who presents to the emergency room with complaints of chest discomfort. Patient reports that she was in her usual state of health until about 5 PM when she suddenly developed this left-sided sharp chest discomfort with associated diaphoresis and headache. The pain was 9 out of 10 at maximal intensity, nonpleuritic, nonradiating. The pain was nonexertional with no alleviating or exacerbating features. She reports that the pain lasted for roughly 5 to 6 hours until she arrived at the emergency room and it subsequently resolved and has not recurred. She reported feeling at her baseline at the time of interview. Denied experiencing associated shortness of breath, palpitations, fever, chills, cough, nausea, vomiting, diarrhea. Course and treatment: She was admitted to hospital chest pain, evaluated by cardiology, no evidence of acute coronary syndrome. Atorvastatin was added, metoprolol was resumed Antihypertensives were placed on hold, lisinopril was placed on hold. Evaluated by cardiology cleared for discharge. She'll follow up as an outpatient for cardiac catheterization and ARTURO. Patient Condition at Discharge: Good Plan - Discharge Summary New Discharge Prescriptions: New Nitroglycerin Sl Tabs [Nitrostat] 0.4 mg SUBLINGUAL Q5M PRN #100 tab PRN Reason: Chest Pain Aspirin 81 mg PO DAILY #90 tab Atorvastatin [Lipitor] 20 mg PO HS #90 tab Nitroglycerin Sl Tabs [Nitrostat] 0.4 mg SUBLINGUAL Q5M PRN tab PRN Reason: Chest Pain Clopidogrel [Plavix] 75 mg PO DAILY tab Metoprolol Succinate (ER) [Toprol XL] 50 mg PO DAILY tab Continue metFORMIN HCL [Glucophage] 1,000 mg PO BID Glucos Sul 2Kcl/MSM/Chond/C/Mn [Glucosamine Chondroitin Cap] 1 cap PO DAILY Glimepiride [Amaryl] 2 mg PO DAILY Ergocalciferol (Vitamin D2) [Drisdol (50,000 Iu)] 1,250 mcg PO TH Magnesium 250 mg PO DAILY Omeprazole [PriLOSEC] 20 mg PO AC-BID #60 cap Ferrous Sulfate [Iron (65 MG Elemental)] 325 mg PO DAILY Potassium Gluconate 99 mg PO Q2D PARoxetine [Paxil] 20 mg PO DAILY Cholecalciferol [Vitamin D3 (25 Mcg = 1000 Iu)] 25 mcg PO DAILY Furosemide [Lasix] 40 mg PO DAILY rOPINIRole HCL [Requip] 0.5 mg PO HS Metoprolol Succinate (ER) [Toprol XL] 50 mg PO DAILY Garlic. 2400 Mg 2,400 mg PO DAILY Clopidogrel [Plavix] 75 mg PO DAILY Discontinued lisinopriL 30 mg PO DAILY Discharge Medication List metFORMIN HCL [Glucophage] 1,000 mg PO BID 02/15/15 [History] Glucos Sul 2Kcl/MSM/Chond/C/Mn [Glucosamine Chondroitin Cap] 1 cap PO DAILY 02/02/19 [History] Glimepiride [Amaryl] 2 mg PO DAILY 02/04/19 [History] Ergocalciferol (Vitamin D2) [Drisdol (50,000 Iu)] 1,250 mcg PO TH 03/05/21 [History] Furosemide [Lasix] 40 mg PO DAILY 03/05/21 [History] Magnesium 250 mg PO DAILY 03/05/21 [History] Omeprazole [PriLOSEC] 20 mg PO AC-BID #60 cap 06/07/21 [Rx] Ferrous Sulfate [Iron (65 MG Elemental)] 325 mg PO DAILY 02/17/22 [History] Cholecalciferol [Vitamin D3 (25 Mcg = 1000 Iu)] 25 mcg PO DAILY 05/20/23 [History] Garlic. 2400 Mg 2,400 mg PO DAILY 05/20/23 [History] Metoprolol Succinate (ER) [Toprol XL] 50 mg PO DAILY 05/20/23 [History] PARoxetine [Paxil] 20 mg PO DAILY 05/20/23 [History] Potassium Gluconate 99 mg PO Q2D 05/20/23 [History] rOPINIRole HCL [Requip] 0.5 mg PO HS 05/20/23 [History] Aspirin 81 mg PO DAILY #90 tab 10/29/23 [Rx] Atorvastatin [Lipitor] 20 mg PO HS #90 tab 10/29/23 [Rx] Clopidogrel [Plavix] 75 mg PO DAILY 10/29/23 [History] Clopidogrel [Plavix] 75 mg PO DAILY tab 10/29/23 [Rx] Metoprolol Succinate (ER) [Toprol XL] 50 mg PO DAILY tab 10/29/23 [Rx] Nitroglycerin Sl Tabs [Nitrostat] 0.4 mg SUBLINGUAL Q5M PRN tab 10/29/23 [Rx] Nitroglycerin Sl Tabs [Nitrostat] 0.4 mg SUBLINGUAL Q5M PRN #100 tab 10/29/23 [Rx] Follow up Appointment(s)/Referral(s): Charles Winkler DO [STAFF PHYSICIAN] - 1 Week Tim Martinez MD [Primary Care Provider] - 1-2 days Discharge Disposition: HOME SELF-CARE
[2023-10-29 11:51] VITALS: BP 116/68; PULSE 78; RESP 18; TEMP 98.2
[2023-10-29] MEDS ORDERED: ATORVASTATIN 20 MG TAB PO SCH (21:00)
== END 2023-10-29 11:58 | disposition home or self-care (01) ==
LOC: EC 00:25 → 6NMEDSUR 05:44
PROVIDERS: ADMIT Internal Medicine; ATTEND Internal Medicine
DX: R07.89 Other chest pain (principal); I48.0 Paroxysmal atrial fibrillation; I10 Essential (primary) hypertension; I45.10 Unspecified right bundle-branch block; I08.3 Combined rheumatic disorders of mitral, aortic and tricuspid valves; E11.9 Type 2 diabetes mellitus without complications; E78.5 Hyperlipidemia, unspecified; D64.9 Anemia, unspecified; F41.9 Anxiety disorder, unspecified; Z79.02 Long term (current) use of antithrombotics/antiplatelets; Z79.84 Long term (current) use of oral hypoglycemic drugs; Z79.899 Other long term (current) drug therapy; Z95.818 Presence of other cardiac implants and grafts; Z87.19 Personal history of other diseases of the digestive system
CPT/HCPCS: 99285; 36415; 93005; 80053; 83735; 84484; 85025; 85610; 85730; 71046; G0378

== ENCOUNTER → 2023-11-09 | Day surgery (SDC) | payer MEDICARE ==
[2023-11-04 14:14] VITALS: BMI 29.2
[~2023-11-09] MED LIST changes: +ALPRAZolam 0.25 MG TAB PO PRN; +ALPRAZolam 0.5 MG TAB PO PRN; +ASPIRIN 325 MG TAB PO STA; +HEPARIN SODIUM 1,000 UN/ML (10ML VL) ONE; +HEPARIN SODIUM,PORCINE (1 ML) 2,500 UNIT in SODIUM CHLORIDE 0.9% 250 ML IRRIGATION PRN; +HEPARIN SODIUM,PORCINE 10,000 UNIT in SODIUM CHLORIDE 0.9% 1,000 ML IRRIGATION PRN; -LACTATED RINGERS 1,000 ML IV SCH; +LIDOCAINE 1% INJ 10MG/ML (20 ML MDV) ONE; +NITROGLYCERIN SL TABS 0.4 MG TAB SUBLINGUAL PRN; -SODIUM CHLORIDE 0.9% 1,000 ML IV SCH; +VERAPAMIL 2.5 MG/ML 2 ML AMP ONE; +fentaNYL (PF) 50 MCG/ML 2 ML AMP ONE
[2023-11-09 08:56] VITALS: RESP 18; TEMP 98.5
[2023-11-09 08:57] LABS: Anisocytosis Slight; Basophils % (A) 1 %; Eosinophils # (A) 0.3 k/uL (0-0.7); Eosinophils % (A) 7 %; HCT 31.3 % (34.0-46.0); HGB 9.9 gm/dL (11.4-16.0); Hypochromasia Moderate; Lymphocytes % (A) 21 %; MCH 29.6 pg (25.0-35.0); MCHC 31.5 g/dL (31.0-37.0); Monocytes # (A) 0.2 k/uL (0-1.0); Monocytes % (A) 4 %; Neutrophils % (A) 64 %; Platelet Count 246 k/uL (150-450); RBC 3.33 m/uL (3.80-5.40); RDW 16.6 % (11.5-15.5); WBC 4.6 k/uL (3.8-10.6)
[2023-11-09] MEDS: SODIUM CHLORIDE 0.9% 1,000 ML in EMPTY BAG 1 BAG IV SCH (08:57)
[2023-11-09] MEDS: IV FLUID CONTINUATION 1,000 ML IV ONE (08:57)
[2023-11-09] MEDS: METOPROLOL SUCCINATE (ER) 50 MG TAB.ER.24H PO STA (08:58)
[2023-11-09 09:01] LABS: Glucose,Whole Blood 126 mg/dL (70-110)
[2023-11-09] MEDS: MIDAZOLAM 2 MG/2 ML VIAL IVP ONE ×3 (10:36→10:40)
[2023-11-09] MEDS: fentaNYL (PF) 50 MCG/ML 2 ML AMP IVP ONE ×3 (10:37→10:40)
[2023-11-09] MEDS: BENZOCAINE SPRAY 1 CAN TOPICAL ONE (10:37)
[2023-11-09] MEDS: HEPARIN SODIUM 1,000 UN/ML (10ML VL) IVP ONE (11:08)
[2023-11-09] MEDS: IV FLUID CONTINUATION 800 ML IV ONE (11:09)
[2023-11-09] MEDS: IOPAMIDOL-370 100ML BTL INJ ONE ×2 (11:09→11:17)
--- NOTE | 2023-11-09 11:26 | P.TEE ---
Description of Procedure(s): Procedure performed: Transesophageal Echocardiogram with color flow doppler, pulsed wave doppler and continuous wave doppler, moderate conscious sedation Moderate conscious sedation: Moderate conscious sedation was supplied with direct supervision of myself using Versed and Fentanyl. Complications: none Indications: severe aortic stenosis, status post watchman PROCEDURE: After the risks, benefits and alternatives of the above mentioned procedure was explained in detail with the patient, informed consent was obtained. Patient was brought to the lab in a fasting state. Patient was given IV Versed and Fentanyl for sedation. The throat was sprayed with Hurricane to anesthetize the throat. A lubricated Omni probe was then introduced into the esophagus and stomach and multiple views were obtained. 2D echo with color flow doppler, pulsed wave doppler and continuous wave doppler was utilized. Agitated saline bubbles were injected to assess for any intra-atrial shunt. The probe was then removed. Patient tolerated the procedure well. Patient was transferred to the post procedure area in stable and satisfactory condition. FINDINGS: 1. The aortic valve is functionally bicuspid with fusion of the right and non-coronary cusp with severe aortic stenosis and aortic valve area by planimetry 0.6 cm. maximum velocity 4.1 m/s, mean gradient 42 mmHg, maximum pressure gradient 69 mmHg 2. The mitral valve appears be normal with mild regurgitation. 3. Tricuspid valve appears to be normal. 4. The interatrial septum is intact. No evidence of PFO. 5. Left atrial appendage has a watchman device in proper position with no leak 6. Left ventricular EF 55%
--- NOTE | 2023-11-09 11:28 | P.CARDCATH ---
Description of Procedure: PROCEDURES PERFORMED: Bilateral coronary angiography, ultrasound guided arterial access INDICATION: Aortic stenosis CONSENT:I have discussed the risks, benefits and alternative therapies for the above-mentioned procedure and for both sedation/analgesia as well as necessary blood product administration, if indicated, as they pertain to this patient. The patient has indicated understanding and acceptance of the risks and procedures discussed. PROCEDURE: After the risks, benefits and alternatives of the above mentioned procedure explained in detail with the patient, informed consent was obtained. Patient was taken to the catheterization lab and prepped and draped in usual fashion. Ultrasound guidance was used to assess for arterial access. 1% lidocaine was used to anesthetize the right radial artery. A 6-[place] sheath was placed in the right radial artery using modified Seldinger technique and ultrasound guidance. Left coronary angiography was performed with a 5-[place] JL 3.5 catheter and right coronary angiography was performed with a 5-[place] FR5 catheter in various views. The right radial sheath was removed and a TR band was placed with hemostasis achieved. The patient tolerated the procedure well. Patient was transported back to the post catheterization holding area in stable condition. Conscious Sedation: Patient was monitored under the direct supervision of myself for conscious sedation using Versed and fentanyl for a total duration of 9 minutes HEMODYNAMICS: 132/78 SELECTIVE CORONARY ARTERIOGRAPHY: LEFT MAIN: The left main is a large caliber vessel which bifurcates into the LAD and circumflex. There is no significant stenosis. LEFT ANTERIOR DESCENDING CORONARY ARTERY: LAD is a large caliber vessel which wraps around to the apex. There are mild luminal irregularities of the LAD. LEFT CIRCUMFLEX CORONARY ARTERY: Left circumflex is a moderate caliber vessel with mid circumflex 20-30% stenosis at the level of OM1 branch. RIGHT CORONARY ARTERY: The right coronary artery is a large caliber vessel which gives off a PDA and PLV branch and is the dominant vessel. There is proximal 1 0- 20% RCA stenosis. FINAL IMPRESSION: 1. Mild CAD as described above including mid circumflex 20-30% stenosis and RCA 10-20% stenosis PLAN: 1. Aggressive risk factor modification per most recent ACC/AHA guidelines. 2. Follow-up in the office in 1-2 weeks.
[2023-11-09 14:40] VITALS: BP 131/60; PULSE 70
== END ==
LOC: CATHCVL 08:31
PROVIDERS: ATTEND Internal Medicine
DX: I08.0 Rheumatic disorders of both mitral and aortic valves (principal); I48.0 Paroxysmal atrial fibrillation; I25.10 Atherosclerotic heart disease of native coronary artery without angina pectoris; E78.5 Hyperlipidemia, unspecified; E11.9 Type 2 diabetes mellitus without complications; I11.0 Hypertensive heart disease with heart failure; I50.32 Chronic diastolic (congestive) heart failure; D50.9 Iron deficiency anemia, unspecified; K21.9 Gastro-esophageal reflux disease without esophagitis; Z79.84 Long term (current) use of oral hypoglycemic drugs; Z79.899 Other long term (current) drug therapy
CPT/HCPCS: 93312; 93320; 93325; 93454; 85025; 99152; C1769; C1894; J2250; J3010; J1644; Q9967

== ENCOUNTER 2023-11-24 06:52 | Outpatient (CLI) | payer MEDICARE ==
[2023-11-24 08:05] LABS: African American GFR (CKD) 62 (>60 ml/min/1.73 sqM); Blood Urea Nitrogen 28 mg/dL (7-17); Non-African American GFR(CKD) 54 (>60 ml/min/1.73 sqM)
[2023-11-24 08:09] LABS: INR 1.1 (<1.2); Partial Thromboplastin Time 23.6 sec (22.0-30.0); Prothrombin Time 11.6 sec (10.0-12.5)
[2023-11-24 08:24] LABS: Basophils % (A) 1 %; Eosinophils # (A) 0.2 k/uL (0-0.7); Eosinophils % (A) 4 %; HCT 28.2 % (34.0-46.0); HGB 8.8 gm/dL (11.4-16.0); Hypochromasia Marked; Lymphocytes # (A) 0.6 k/uL (1.0-4.8); Lymphocytes % (A) 16 %; MCHC 31.2 g/dL (31.0-37.0); MCV 89.6 fL (80.0-100.0); Mean Platelet Volume 7.9; Monocytes # (A) 0.2 k/uL (0-1.0); Monocytes % (A) 6 %; Neutrophils # (A) 2.8 k/uL (1.3-7.7); Neutrophils % (A) 71 %; Platelet Count 202 k/uL (150-450); Poikilocytosis Slight; RBC 3.15 m/uL (3.80-5.40); RDW 15.1 % (11.5-15.5); WBC 3.9 k/uL (3.8-10.6)
[2023-11-24 09:13] LABS: ALT 19 U/L (4-34); AST 27 U/L (14-36); African American GFR (CKD) 62 (>60 ml/min/1.73 sqM); Albumin 3.9 g/dL (3.5-5.0); Albumin/Globulin Ratio 2.1; Alkaline Phosphatase 61 U/L (38-126); Anion Gap 8 mmol/L; Blood Urea Nitrogen 28 mg/dL (7-17); Calcium 9.2 mg/dL (8.4-10.2); Carbon Dioxide 24 mmol/L (22-30); Chloride 104 mmol/L (98-107); Globulin 1.9 g/dL; Glucose 175 mg/dL (74-99); Magnesium 1.6 mg/dL (1.6-2.3); Non-African American GFR(CKD) 54 (>60 ml/min/1.73 sqM); Potassium 4.1 mmol/L (3.5-5.1); Sodium 136 mmol/L (137-145); Total Bilirubin 0.4 mg/dL (0.2-1.3); Total Protein 5.8 g/dL (6.3-8.2)
[2023-11-24 09:22] LABS: NT-Pro-B-Type Natriuretic Pept 456 pg/mL
[2023-11-24 09:58] LABS: Appearance,Urine Clear (Clear); Bilirubin,Urine Negative (Negative); Blood,Urine Negative (Negative); Color,Urine Colorless; Glucose,Urine (UA) Negative (Negative); Ketones,Urine Negative (Negative); Leukocyte Esterase,Urine Negative (Negative); Nitrite,Urine Negative (Negative); Protein,Urine Negative (Negative); Specific Gravity,Urine 1.022 (1.001-1.035); Urobilinogen,Urine <2.0 mg/dL (<2.0)
[2023-11-24 19:02] LABS: Bilirubin,Unconjugated 0.2 mg/dL (0.0-1.1)
--- NOTE | 2023-11-24 19:14 | CT ---
EXAMINATION TYPE: CT TAVR Planning DATE OF EXAM: 11/24/2023 HISTORY: 77-year-old female I35.0, Pre TAVR planning CT DLP: 1623.8 mGycm Automated Exposure Control for Dose Reduction was Utilized. CONTRAST: CT scan of the neck, chest, abdomen and pelvis is performed with IV Contrast, patient injected with 1 25 mL of Isovue 370. COMPARISON: Chest radiograph 10/29/2023 TECHNIQUE: Helical imaging obtained through the neck, chest, abdomen and pelvis during arterial phas e dynamic administration of radiographic contrast intravenously. FINDINGS: See report from [employer] regarding preprocedural planning CHEST: Neck and Thyroid: No significant findings Lungs: Nonspecific 4 mm lateral right upper lobe pulmonary nodule, axial image 36. Follow-up CT in 12 months to reassess. No consolidation or pleural effusion. Central Airway: Mild diffuse bronchial wall thickening. Minimal biapical pleural parenchymal scarring . Pleura: No significant findings Pulmonary Arteries: Borderline caliber measuring up to 2.5 cm may reflect underlying pulmonary artery hypertension. Heart and Pericardium: Three-vessel coronary artery calcifications. Ectatic ascending aorta 2.9 cm. M ild atelectatic arch calcifications. Conventional arch vessel branching anatomy. Lymph Nodes: No significant findings Mediastinum & Esophagus: No significant findings AV Calcification Severity: Moderate ABDOMEN/PELVIS: Please note arterial phase of the imaging limits detailed evaluation of the solid abdominal organs. Liver: Enlarged at 19.2 cm. A few tiny cysts measuring up to 8 mm. Spleen: No significant findings Kidneys: No significant findings Adrenal Glands: No significant findings Pancreas: No significant findings Gallbladder: Hydropic at 5.1 cm without surrounding inflammation. Bowel and Mesentery: Mild to moderate stool burden. Normal appendix. No pericolonic inflammatory maher ge. No dilated small bowel, free fluid, or free air. Lymph Nodes: Prominent gastrohepatic ligament node at 7 mm in rico hepatic node at 1.0 cm probably r eactive/post inflammatory. Otherwise, no mesenteric or retroperitoneal adenopathy seen. Urinary Bladder: No significant findings Pelvic Organs: Uterus surgically absent. Both ovaries are visualized. There is a 2.2 cm cyst of the l eft ovary, abnormal in a postmenopausal patient. Recommend three-month follow-up pelvic ultrasound to reassess, further characterize, and determine subsequent follow-up recommendations. Pelvic phlebolit h. No abnormal fluid collection in the pelvis. Other: Degenerative and hypertrophied bilateral sternoclavicular joints. Status post L3-L5 posterior lumbar fusion. Straightening of the normal lumbar lordosis. Anterior endplate spondylosis lower thora cic spine. Other Lines/Tubes/Devices/Hardware: Left atrial appendage occluder device. L3-L5 posterior lumbar fus ion hardware. IMPRESSION: 1. Twelve-month follow-up CT chest to reassess a 4 mm right upper lobe pulmonary nodule. Possible und erlying pulmonary arterial hypertension. Three-vessel coronary artery calcifications. 2. Hepatomegaly at 19.2 cm. Hydropic gallbladder probably relating to fasting state. Clinically corre late. No surrounding inflammation. 3. A 2.2 cm cyst of the left ovary, abnormal in a postmenopausal patient. Recommend three-month follo w-up pelvic ultrasound to reassess and to determine subsequent follow-up recommendations.
--- NOTE | 2023-11-24 20:10 | US ---
EXAMINATION TYPE: US carotid duplex BILAT DATE OF EXAM: 11/24/2023 COMPARISON: NONE CLINICAL INDICATION: Female, 77 years old with history of R55 SYNCOPE; Syncope per order. Diabetic, h yperlipidemia. TECHNIQUE: Carotid duplex ultrasound examination. Indirect Doppler criteria was utilized. FINDINGS: EXAM MEASUREMENTS: RIGHT: Peak Systolic Velocity (PSV) cm/sec ----- Right CCA: 71.3 ----- Right ICA: 111.7 ----- Right ECA: 62.5 ICA/CCA ratio: 1.6 RIGHT: End Diastole cm/sec ----- Right CCA: 16.4 ----- Right ICA: 29.2 ----- Right ECA: 8.7 LEFT: Peak Systolic Velocity (PSV) cm/sec ----- Left CCA: 72.4 ----- Left ICA: 116.0 ----- Left ECA: 83.4 ICA/CCA ratio: 1.6 LEFT: End Diastole cm/sec ----- Left CCA: 17.5 ----- Left ICA: 34.4 ----- Left ECA: 0.0 VERTEBRALS (direction of flow): Right Vertebral: Antegrade Left Vertebral: Antegrade Rhythm: Normal REGULATORY AFFAIRS DIRECTOR NOTES: No elevated velocities at this time. Minimal plaque seen within bilateral bulbs. IMPRESSION: No significant hemodynamic stenosis. Criteria for Assigning % of Stenosis / Diameter reduction (Estimation based on the indirect measurements of the internal carotid artery velocities (ICA PSV). 1. Normal (no stenosis)=ICA PSV < 125 cm/s: ratio < 2.0: ICA EDV<40 cm/s. 2. Less than 50% stenosis=ICA PSV < 125 cm/s: ratio < 2.0: ICA EDV<40 cm/s. 3. 50 to 69% stenosis=ICA PSV of 125 to 230 cm/s: ration 2.0 ? 4.0: ICA EDV 40-100 cm/s. 4. Greater than 70% stenosis to near occlusion= ICA PSV > 230 cm/s: ratio > 4.0: ICA EDV > 100 cm/s. 5. Near occlusion= ICA PSV velocities may be low or undetectable: variable ratio and ICA EDV. 6. Total occlusion=unable to detect flow.
[2023-11-25 02:13] LABS: Chol/HDL Ratio 2.56 Ratio
== END 2023-11-24 15:15 | disposition home or self-care (01) ==
LOC: LABWHC1 06:52
PROVIDERS: ATTEND Thoracic Surgery (Cardiothoracic Vascular Surgery)
DX: Z01.818 Encounter for other preprocedural examination (principal); I35.0 Nonrheumatic aortic (valve) stenosis; I25.10 Atherosclerotic heart disease of native coronary artery without angina pectoris; N83.202 Unspecified ovarian cyst, left side; E11.9 Type 2 diabetes mellitus without complications; E78.5 Hyperlipidemia, unspecified; N28.9 Disorder of kidney and ureter, unspecified; E87.8 Other disorders of electrolyte and fluid balance, not elsewhere classified; E07.9 Disorder of thyroid, unspecified; R91.1 Solitary pulmonary nodule; R58 Hemorrhage, not elsewhere classified; R35.0 Frequency of micturition; R55 Syncope and collapse; R16.0 Hepatomegaly, not elsewhere classified; Z78.0 Asymptomatic menopausal state; Z79.01 Long term (current) use of anticoagulants; Z79.899 Other long term (current) drug therapy
CPT/HCPCS: 94150; 83880; 80061; 80053; 84443; 82248; 82565; 83735; 84520; 85025; 85610; 85730; 81003; 87086; 83036; 93880; 71275; 74174; 36415; Q9967

== ENCOUNTER → 2023-12-18 | Outpatient (CLI) | payer MEDICARE | END | disposition home or self-care (01) | LOC: LABWHC1 10:01 | DX: Z53.9 Procedure and treatment not carried out, unspecified reason (principal) ==

== ENCOUNTER 2023-12-23 09:33 | Inpatient (IN) | payer MEDICARE ==
[~2023-12-23 09:33] MED LIST changes: -ALPRAZolam 0.25 MG TAB PO PRN; -ALPRAZolam 0.5 MG TAB PO PRN; -ASPIRIN 325 MG TAB PO STA; +CLEVIDIPINE BUTYRATE 25 MG in EMPTY BAG 1 BAG IV PRN; +ELECTROLYTE-A SOLUTION 1,000 ML with POTASSIUM CHLORIDE 100 MEQ, MAGNESIUM SULFATE 16 M... IV PRN; +ELECTROLYTE-A SOLUTION 1,000 ML with POTASSIUM CHLORIDE 40 MEQ, MAGNESIUM SULFATE 16 ME... IV PRN; -HEPARIN SODIUM 1,000 UN/ML (10ML VL) ONE; -HEPARIN SODIUM,PORCINE (1 ML) 2,500 UNIT in SODIUM CHLORIDE 0.9% 250 ML IRRIGATION PRN; -HEPARIN SODIUM,PORCINE 10,000 UNIT in SODIUM CHLORIDE 0.9% 1,000 ML IRRIGATION PRN; +INSULIN REGULAR 100 UNIT in SODIUM CHLORIDE 0.9% 100 ML IV PRN; -LIDOCAINE 1% INJ 10MG/ML (20 ML MDV) ONE; -NITROGLYCERIN SL TABS 0.4 MG TAB SUBLINGUAL PRN; +NITROGLYCERIN-D5W PMX 25 MG/250 ML BTL IV PRN; +PROTAMINE SULFATE 250 MG in EMPTY BAG 1 BAG IV PRN; +TRANEXAMIC ACID 2,000 MG in SODIUM CHLORIDE 0.9% 80 ML IV PRN; -VERAPAMIL 2.5 MG/ML 2 ML AMP ONE; -fentaNYL (PF) 50 MCG/ML 2 ML AMP ONE
[2023-12-23 10:06] LABS: Glucose,Whole Blood 224 mg/dL (70-110)
[2023-12-23] MEDS: ATORVASTATIN 10 MG TAB PO ONE (10:12)
[2023-12-23] MEDS: CLOPIDOGREL 75 MG TAB PO ONE (10:12)
[2023-12-23] MEDS: METOPROLOL TARTRATE 25 MG TAB PO ONE (10:12)
[2023-12-23] MEDS: SODIUM CHLORIDE 0.9% 1,000 ML IV ONE (10:16)
[2023-12-23] MEDS: INSULIN ASPART (NovoLOG) 100 UNIT/ML VIAL SQ SCH (10:20)
--- NOTE | 2023-12-23 12:23 | P.ANPRN ---
Procedure Note - Anesthesia - Invasive Line Left Arterial Line Time Out Performed: Yes (1201) Date of Procedure: 12/23/23 Time of Procedure: 12:02 Location of Patient: CVL Preparation: Sterile Prep, Sterile Dressing Arterial Line Location: Radial (left) Ultrasound Used: No Purpose - Visualization and Identification of Vasculature: No Needle Guage: 20g Image Stored and Saved: No Narrative: Invasive line placement per sterile protocol utilized. lumen bled and flushed. Secured and dressed
[2023-12-23] MEDS ORDERED: GLYCOPYRROLATE 0.2 MG/ML 2 ML VIAL ONE (12:32)
[2023-12-23] MEDS ORDERED: SUCCINYLCHOLINE CHLORIDE 200 MG/10 ML VIAL IV ONE (12:32)
[2023-12-23] MEDS ORDERED: MIDAZOLAM 2 MG/2 ML VIAL ONE (12:32)
[2023-12-23] MEDS ORDERED: PROPOFOL 10 MG/ML 20 ML VIAL IV ONE (12:32)
[2023-12-23] MEDS ORDERED: ROCURONIUM 10 MG/ML (5 ML VIAL) IV ONE (12:32)
[2023-12-23] MEDS ORDERED: fentaNYL (PF) 50 MCG/ML 2 ML AMP ONE (12:32)
[2023-12-23] MEDS ORDERED: HEPARIN SODIUM,PORCINE 5,000 UNIT/ML 1 ML VIAL ONE (12:32)
[2023-12-23] MEDS ORDERED: LIDOCAINE 1% INJ 10MG/ML (20 ML MDV) ONE (12:32)
[2023-12-23] MEDS ORDERED: PROTAMINE SULFATE 10 MG/ML 5 ML VIAL ONE (12:32)
[2023-12-23] MEDS ORDERED: PHENYLEPHRINE 10 MG/ML VIAL ONE (12:32)
[2023-12-23] MEDS ORDERED: NEOSTIGMINE 1 MG/ML 10 ML VIAL ONE (12:32)
[2023-12-23] MEDS: IOPAMIDOL-370 200ML BTL INJ ONE (13:56)
--- NOTE | 2023-12-23 13:59 | P.ANPRN ---
Procedure Note - Anesthesia - ARTURO Intraop Pre Bypass ARTURO Intraop - Anesthesia Indication: TAVR Date of Procedure: 12/23/23 Pre-operative Diagnosis: Aortic Stenosis Post-operative Diagnosis: Aortic Stenosis s/p TAVR Surgeon: Bharat Joshua Left Ventricle: wnl Ejection Fraction: Normal Regional Wall Motion Abnormalities: None Left Ventricle Hypertrophy: No R. Ventricle Function: Normal Aortic Valve: restricted valve. Small opening. Peak 47 and mean 27 Anatomy: Trileaflet (fused) Aortic Stenosis: Severe Aortic Regurgitation: None Mitral Stenosis: None Mitral Regurgitation: Trace Tricuspid Stenosis: None Tricuspid Regurgitation: None Pulmonic Stenosis: None Pulmonic Regurgitation: None R. Atrial Dilation: No R. Atrial PFO: No L. Atrial Dilation: No Aortic Dissection: No Aortic Calcification: None Plural Effusion: None
--- NOTE | 2023-12-23 14:01 | P.ANPRN ---
Procedure Note - Anesthesia - ARTURO Intraop Post Bypass ARTURO Intraop Post Bypass Procedure Performed: TAVR Left Ventricle: unchanged Ejection Fraction: Normal Regional Wall Motion Abnormalities: None R. Ventricle Function: Normal Aortic Valve: prosthetic valve in place. trace perivalvular leak. residural mean of 6 Mitral Valve: Unchanged Tricuspid: Unchanged Pulmonic: Unchanged Aortic Dissection: No
[2023-12-23] MEDS: IV FLUID CONTINUATION 1,000 ML IV ONE ×2 (14:18)
--- NOTE | 2023-12-23 14:19 | P.OP ---
Description of Procedure: Transcatheter Aoritc Valve Replacement Operative report PROCEDURE PERFORMED: 1. Percutaneous Aortic Valve Implantation using a 29 mm Evolut-FX. 2. Transesophageal echocardiography (performed by anesthesia) 3. Ultrasound guided access and repair of right femoral artery access site by Perclose closure device. 4. Placement of temporary pacemaker wire. 5. Aortic root angiography INDICATIONS: 1. 78 year-old with a history of severe symptomatic aortic valve stenosis. PERFORMING PHYSICIANS: 1. Charles Winkler, Interventional Cardiology 2. Bharat Joshua MD, Cardiothoracic Surgeon. SEDATION: General anesthesia provided by anesthesia, see separate note APPROACH: Right femoral artery via percutaneous approach PROCEDURE DESCRIPTION: The patient was discussed at valve clinic with multidisciplinary approach with cardiothoracic surgeon as well as jewelry bearing maker and thought better treated with TAVR. Risks, benefits, and alternatives of the procedure had been explained to the patient who understood the risks and agreed to proceed. After consents were obtained, patient was brought to the transcatheter aortic valve implantation room in the cardiac open hearth laborer and general anesthesia was provided by the anesthesiologist (see separate report). Initial attempts were made at left femoral venous access however difficult and therefore aborted. Once full body sterile prep was performed, right subclavian venous access was obtained and a temporary pacemaker was screwed in, performed by cardiothoracic surgery. Pacing threshholds were checked and deemed appropriate. Next the left femoral artery was accessed using a modified Seldinger technique, ultrasound guidance and micropuncture technique. A 6 [place] Rabi sheath was placed in the left femoral artery. Next, a 6-[place] pigtail catheter was advanced into the aorta and positioned in the aortic root, aortic root angiography was performed to determine optimal deployment angle. The right femoral artery was accessed using modified Seldinger technique, micropuncture technique and under direct ultrasound guidance. Femoral angiogram was done showing access in the common femoral artery and a 6Fr sheath was placed. Next preclose technique was performed using 2 prclose Perclose. Next a 0.035 Confida wire was placed in the Aorta via a pigtail catheter. Over that the arteriotomy was serially dilated and a 14 Fr [place] sheath was placed. Next a 6F- AL1 catheter was advanced over a wire to the aortic root. A straight wire was advanced through the catheter and used to cross the severely stenotic valve. The AL1 was then exchanged for a 6Fr pigtail catheter and pressure measurements were obtained. The 0.035 Confida wire was then positioned in the apex. Next a 29 mm Evolut-FX was advanced. The valve was then positioned across the aortic valve and confirmed with aortic root angiography. The valve was initially partially deployed however needed repositioning and therefore was recaptured. The valve was then deployed in proper position using slow deployment and with rapid pacing in conjuncture with aortic root angiography and ARTURO. The delivery system was withdrawn back into the arch and an aortic root injection in conjunction with ARTURO demonstrated a satisfactory result. There was no para valvular leak. There was no evidence of any other significant abnormalities. The preclose Perclose was then deployed in the right femoral artery as well as an 8Fr Angioseal and hemostasis was achieved. The pigtail was then advanced to the level of the iliac bifurcation via the left femoral access. Femoral angiogram was performed that showed no contrast leak. The left femoral angiogram demonstrated an arteriotomy in the common femoral artery and this was repaired using a 6F angioseal device with complete hemostasis. The temporary venous pacemaker was sutured in place. The patient was then transported to the ICU in hemodynamically stable condition, requiring no pressor support. COMPLICATIONS: None CONCLUSION: 1. Implantaion of 29 mm Evolut-FX transcatheter aortic valve via right femoral approach under ARTURO and fluoro guidance with no inge-valvular aortic regurg itation. 2. Placement of temporary pacemaker wire 3. Aortic Root Aortogram. RECOMMENDATIONS: The patient will be monitored for hemodynamic and electrical stability.
[2023-12-23] MEDS ORDERED: Potassium Replacement Protocol 1 EACH MISC MISCELLANE PRN (14:27)
[2023-12-23] MEDS ORDERED: IPRATROPIUM-ALBUTEROL 3 ML NEB INHALATION PRN (14:27)
[2023-12-23] MEDS ORDERED: Magnesium Replacement Protocol 1 EACH MISC MISCELLANE PRN (14:27)
[2023-12-23] MEDS ORDERED: NITROGLYCERIN SL TABS 0.4 MG TAB SUBLINGUAL PRN (14:27)
[2023-12-23] MEDS ORDERED: ONDANSETRON 4 MG/2 ML VIAL IVP PRN (14:27)
[2023-12-23 14:53] LABS: Anisocytosis Slight; Basophils % (A) 0 %; Eosinophils # (A) 0.2 k/uL (0-0.7); Eosinophils % (A) 6 %; HCT 27.8 % (34.0-46.0); HGB 8.6 gm/dL (11.4-16.0); Hypochromasia Moderate; Lymphocytes # (A) 0.8 k/uL (1.0-4.8); Lymphocytes % (A) 23 %; MCH 27.8 pg (25.0-35.0); MCHC 30.9 g/dL (31.0-37.0); MCV 89.9 fL (80.0-100.0); Mean Platelet Volume 7.9; Monocytes # (A) 0.2 k/uL (0-1.0); Monocytes % (A) 6 %; Neutrophils # (A) 2.1 k/uL (1.3-7.7); Neutrophils % (A) 63 %; Platelet Count 128 k/uL (150-450); RBC 3.09 m/uL (3.80-5.40); RDW 19.3 % (11.5-15.5); WBC 3.3 k/uL (3.8-10.6)
[2023-12-23 15:04] LABS: Glucose,Whole Blood 173 mg/dL (70-110)
--- NOTE | 2023-12-23 15:09 | P.OP ---
Date of Procedure: 12/23/23 Preoperative Diagnosis: Thematic calcific tricuspid aortic valvular stenosis Postoperative Diagnosis: Same Procedure(s) Performed: Percutaneous transfemoral transcatheter aortic valvular replacement with 29 mm Medtronic evolute flex valve Implants: 29 mm Medtronic Evolut flex transcatheter aortic valve Anesthesia: GETA Surgeon: Bharat Joshua (Cardiovascular surgeon) Government Professor #1: Charles Winkler (registered dental assistant) Government Professor #2: Jose Echols (Nurse practitioner) Estimated Blood Loss (ml): 20 IV fluids (ml): 500 Pathology: none sent Condition: stable Disposition: PACU Indications for Procedure: 78-year-old female with severely symptomatic critical aortic valvular stenosis. She was evaluated in the high risk valve clinic and felt to be high to extreme risk for surgical aortic valve. She was felt to be appropriate for transcatheter valve implantation. Operative Findings: Gradients across the aortic valve are significant. Valve deployment proceeded smoothly the valve was deployed at 6 on the right and 5 on the left. Patient initially had some complete heart block but this resolved. ARTURO demonstrated excellent expansion of the valve with no impingement on the mitral leaflets. There was no paravalvular leak. Completion angiography showed excellent flow through the right femoral artery with no evidence of leak or narrowing. Description of Procedure: Patient was brought to the catheterization laboratory and placed supine on the operating table. General anesthesia was induced and the anterior torso and bilateral groins were sterilely prepped and draped in standard fashion. Bilateral femoral arterial access was obtained under ultrasound guidance. On the left a long 6 Austrian sheath was placed into the descending thoracic aorta. Through this a pigtail catheter was advanced into the noncoronary sinus of Valsalva. On the right 7 Austrian sheath was placed. This was exchanged for 2 Perclose devices and then an 8 Austrian sheath was placed through the Perclose's. Attempts to cannulate the right femoral vein were unsuccessful. It appeared that this was likely thrombosed. At that point we decided to place a right subclavian line. Right subclavian venipuncture was performed without difficulty. Guidewire was threaded proximally and a 7 Austrian split away sheath was placed. Through this a screw-in atrial lead was placed into the right atrium and advanced into the apex of the right ventricle where it was screwed in. Patient threshold was below 1. Lead was secured to the skin with 2-0 silk suture ligatures. Right femoral arterial sheath was upsized to a 14 Austrian sheath over a stiff wire. Aortic valve was crossed through this approach and a pigtail catheter positioned at the apex of the left ventricle. Transvalvular gradients were measured. Stiff wire was placed at the apex of the ventricle. 29 Evolut flex valve had been loaded on the back table. It was brought up onto the field and the 14 Austrian sheath was exchanged for the 29 Austrian valve delivery system after checking the valve under fluoroscopy. The valve was advanced through the arterial system around the aortic arch and across the aortic valve. It was deployed under rapid ventricular pacing and excellent stability was obtained. ARTURO demonstrated no evidence of leak with good expansion of the frame. Valve deployment system was removed and exchanged for 14 Austrian sheath over the stiff wire. 14 Austrian sheath was removed and the 2 Perclose devices successfully deployed with excellent hemostasis. Completion angiography was performed from the left. Left femoral sheath was then removed and hemostasis obtained. The assistance of NILTON Echols was needed for valve prep and assistance with closure dur tp complexity of procedure and multiple patient comorbidities.
[2023-12-23 15:11] LABS: African American GFR (CKD) 82 (>60 ml/min/1.73 sqM); Anion Gap 8 mmol/L; Blood Urea Nitrogen 16 mg/dL (7-17); Calcium 8.4 mg/dL (8.4-10.2); Carbon Dioxide 24 mmol/L (22-30); Chloride 105 mmol/L (98-107); Glucose 156 mg/dL (74-99); Non-African American GFR(CKD) 71 (>60 ml/min/1.73 sqM); Potassium 4.1 mmol/L (3.5-5.1); Sodium 137 mmol/L (137-145)
[2023-12-23] MEDS: SODIUM CHLORIDE 0.9% 1,000 ML IV SCH ×2 (16:03→17:13)
[2023-12-23 16:42] LABS: Glucose,Whole Blood 171 mg/dL (70-110)
[2023-12-23] MEDS: SODIUM CHLORIDE 0.9% 500 ML 500 ML IV ONE (17:12)
[2023-12-23] MEDS: ASPIRIN 325 MG TAB PO ONE (17:12)
[2023-12-23] MEDS: SODIUM CHLORIDE 0.9% 500 ML 500 ML INTRAARTER ONE (17:13)
[2023-12-23] MEDS: NON FORMULARY DRUG (Potassium Gluconate [Potassium Gluconate] 99 MG Tablet) PO SCH (17:13)
[2023-12-23] MEDS: PANTOPRAZOLE 40 MG TABLET PO SCH (17:26)
--- NOTE | 2023-12-23 17:28 | XR ---
EXAMINATION TYPE: XR chest 1V portable DATE OF EXAM: 12/23/2023 Comparison: 10/29/2023 Clinical History: 78-year-old female Post Operative Cardiac Surgery Findings: Right-sided transvenous pacer lead ending in the right ventricle. Endovascular aortic valve replaceme nt. Heart mildly enlarged. Diffuse interstitial density without christine consolidation or pleural effusi on. Impression: Mild pulmonary vascular congestion.
[2023-12-23 20:15] LABS: Glucose,Whole Blood 213 mg/dL (70-110)
[2023-12-23] MEDS: ATORVASTATIN 20 MG TAB PO SCH (20:20)
[2023-12-23] MEDS: SENNOSIDES-DOCUSATE SODIUM 1 EACH TAB PO SCH (20:20)
[2023-12-24] MEDS ORDERED: HEPARIN SODIUM,PORCINE 5,000 UNIT/ML 1 ML VIAL ONE
[2023-12-24] MEDS ORDERED: ACETAMINOPHEN TAB 325 MG TAB ONE (01:36)
[2023-12-24 04:35] LABS: Anisocytosis Slight; Basophils % (A) 0 %; Eosinophils # (A) 0.2 k/uL (0-0.7); Eosinophils % (A) 4 %; HCT 27.1 % (34.0-46.0); HGB 8.5 gm/dL (11.4-16.0); Hypochromasia Marked; Lymphocytes # (A) 0.4 k/uL (1.0-4.8); Lymphocytes % (A) 8 %; MCH 28.9 pg (25.0-35.0); MCHC 31.5 g/dL (31.0-37.0); MCV 91.8 fL (80.0-100.0); Macrocytosis Slight; Mean Platelet Volume 8.6; Monocytes # (A) 0.3 k/uL (0-1.0); Monocytes % (A) 6 %; Neutrophils # (A) 3.6 k/uL (1.3-7.7); Neutrophils % (A) 81 %; Platelet Count 132 k/uL (150-450); RBC 2.95 m/uL (3.80-5.40); RDW 19.3 % (11.5-15.5); WBC 4.5 k/uL (3.8-10.6)
[2023-12-24] MEDS: HEPARIN SODIUM,PORCINE 5,000 UNIT/ML 1 ML VIAL SQ SCH (05:01)
[2023-12-24 06:14] LABS: Ionized Calcium 4.9 mg/dL (4.5-5.3)
[2023-12-24 06:46] LABS: ALT 23 U/L (4-34); AST 45 U/L (14-36); African American GFR (CKD) 79 (>60 ml/min/1.73 sqM); Albumin 3.3 g/dL (3.5-5.0); Alkaline Phosphatase 62 U/L (38-126); Anion Gap 5 mmol/L; Blood Urea Nitrogen 14 mg/dL (7-17); Calcium 8.8 mg/dL (8.4-10.2); Carbon Dioxide 24 mmol/L (22-30); Chloride 102 mmol/L (98-107); Glucose 164 mg/dL (74-99); Magnesium 1.6 mg/dL (1.6-2.3); Non-African American GFR(CKD) 69 (>60 ml/min/1.73 sqM); Potassium 4.4 mmol/L (3.5-5.1); Sodium 131 mmol/L (137-145); Total Bilirubin 0.4 mg/dL (0.2-1.3); Total Protein 5.3 g/dL (6.3-8.2)
--- NOTE | 2023-12-24 07:56 | XR ---
EXAMINATION TYPE: XR chest 1V portable DATE OF EXAM: 12/24/2023 Comparison: 12/23/2023 Clinical History: 78-year-old female Post Operative Cardiac Surgery Findings: Heart normal size. Endovascular aortic valve replacement. Assess cardiac arch calcifications. The int erstitium has improved. Minimal interstitial prominence remains. Transvenous RV pacer lead noted. No consolidation or pleural effusion. Impression: The pulmonary vascular congestion has improved.
[2023-12-24] MEDS: ASPIRIN 81 MG PO SCH (07:58)
[2023-12-24] MEDS: METOPROLOL SUCCINATE (ER) 25 MG TAB.ER.24H PO SCH (07:58)
[2023-12-24] MEDS: CLOPIDOGREL 75 MG TAB PO SCH (07:58)
[2023-12-24] MEDS: FERROUS SULFATE 325 MG TAB PO SCH (07:58)
[2023-12-24] MEDS: CHOLECALCIFEROL 25 MCG (1000 IU) TABLET PO SCH (07:59)
[2023-12-24] MEDS: FUROSEMIDE 40 MG TAB PO SCH (07:59)
[2023-12-24] MEDS: PARoxetine 20 MG TAB PO SCH (07:59)
[2023-12-24] MEDS: ERGOCALCIFEROL 1,250 MCG (50,000 IU) CAPSULE PO SCH (07:59)
[2023-12-24] MEDS: MAGNESIUM OXIDE 400 MG TAB PO SCH (07:59)
[2023-12-24] MEDS: MAGNESIUM SULFATE-D5W PMX 1 GM in DEXTROSE/WATER 1 100ML.BAG IVPB SCH (07:59)
[2023-12-24] MEDS: ACETAMINOPHEN TAB 325 MG TAB PO PRN (08:02)
--- NOTE | 2023-12-24 08:03 | P.PN ---
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 Previous medical history of hypertension, hyperlipidemia, tpy-nnezwly-rpduxrvlo diabetes mellitu s, paroxysmal atrial fibrillation status post ablation in 2021 as well as Watch[facility] in August 2023, GI bleed with anemia and history of blood transfusions, chronic heart failure with preserved ejection fraction, lifelong non-smoker POD #1 percutaneous Aortic Valve Implantation using a 29 mm Evolut-FX, transesophageal echocardiography (performed by anesthesia), ultrasound guided access and repair of right femoral artery access site by Perclose closure device, placement of temporary pacemaker wire, aortic root angiography The patient was seen and examined this morning sitting up in recliner on the cardiac stepdown unit in no acute distress. She denies any chest pain or shortness of breath. States she has been ambulatory to and from the bathroom multiple times without difficulty. She has had no episodes of bradycardia, remains neurologically intact. She remains hemodynamically stable. Right subclavian temporary pacer wire was present, discontinued without incident this morning. Patient currently has no complaints and is in good spirits. Transthoracic echocardiogram will be completed this morning and if stable patient will be discharged to home this afternoon. Objective - Vital Signs Vital signs: Vital Signs Temp 98.3 F 12/24/23 04:30 Pulse 77 12/24/23 04:30 Resp 16 12/24/23 04:30 BP 129/64 12/24/23 04:30 Pulse Ox 95 12/24/23 04:30 FiO2 Intake & Output 12/23/23 12/24/23 12/24/23 18:59 06:59 18:59 Intake Total 100 Balance 100 Weight 78.8 kg Intake: IV 100 Other: Voiding Method Toilet # Voids 1 - Exam CONSTITUTIONAL: Appears comfortable, cooperative, no acute distress RESPIRATORY: Lungs sounds diminished bilaterally. Respirations even, nonlabored. Currently on room air with oxygen saturation 93%. Strong cough. CARDIOVASCULAR: S1, S2 present. Regular rate and rhythm, sinus rhythm on telemetry. Palpable peripheral pulses bilaterally. No edema present. No calf pain or tenderness noted. SCDs present. GASTROINTESTINAL: Abdomen soft, nontender, nondistended. Active bowel sounds present 4 quadrants. Tolerating diet. Positive flatus GENITOURINARY: Continues to void clear, yellow urine INTEGUMENTARY: Skin is warm and dry with evidence of good perfusion. Bilateral groins soft, nontender NEUROLOGIC: Cranial nerves II through XII intact MUSKULOSKELETAL: Able to move all extremities, strength equal bilaterally, gait normal PSYCHIATRIC: Alert and oriented to person place and time, appropriate affect, intact judgment and insight INVASIVE LINES AND TUBES: Right subclavian vein temporary transvenous pacemaker wire present this morning, removed without incident - Allied health notes Allied health notes reviewed: nursing - Labs CBC & Chem 7: 12/24/23 02:47 12/24/23 02:47 Labs: Abnormal Lab Results - Last 24 Hours (Table) 12/23/23 12/23/23 12/23/23 Range/Units 10:01 14:25 14:25 WBC 3.3 L (3.8-10.6) k/uL RBC 3.09 L (3.80-5.40) m/uL Hgb 8.6 L (11.4-16.0) gm/dL Hct 27.8 L (34.0-46.0) % MCHC 30.9 L (31.0-37.0) g/dL RDW 19.3 H (11.5-15.5) % Plt Count 128 L (150-450) k/uL Lymphocytes # 0.8 L (1.0-4.8) k/uL Sodium (137-145) mmol/L Glucose 156 H (74-99) mg/dL POC Glucose (mg/dL) 224 H (70-110) mg/dL AST (14-36) U/L Total Protein (6.3-8.2) g/dL Albumin (3.5-5.0) g/dL 12/23/23 12/23/23 12/23/23 Range/Units 15:02 16:41 20:14 WBC (3.8-10.6) k/uL RBC (3.80-5.40) m/uL Hgb (11.4-16.0) gm/dL Hct (34.0-46.0) % MCHC (31.0-37.0) g/dL RDW (11.5-15.5) % Plt Count (150-450) k/uL Lymphocytes # (1.0-4.8) k/uL Sodium (137-145) mmol/L Glucose (74-99) mg/dL POC Glucose (mg/dL) 173 H 171 H 213 H (70-110) mg/dL AST (14-36) U/L Total Protein (6.3-8.2) g/dL Albumin (3.5-5.0) g/dL 12/24/23 12/24/23 Range/Units 02:47 02:47 WBC (3.8-10.6) k/uL RBC 2.95 L (3.80-5.40) m/uL Hgb 8.5 L (11.4-16.0) gm/dL Hct 27.1 L (34.0-46.0) % MCHC (31.0-37.0) g/dL RDW 19.3 H (11.5-15.5) % Plt Count 132 L (150-450) k/uL Lymphocytes # 0.4 L (1.0-4.8) k/uL Sodium 131 L (137-145) mmol/L Glucose 164 H (74-99) mg/dL POC Glucose (mg/dL) (70-110) mg/dL AST 45 H (14-36) U/L Total Protein 5.3 L (6.3-8.2) g/dL Albumin 3.3 L (3.5-5.0) g/dL - Imaging and Cardiology Chest x-ray: image reviewed Assessment and Plan Assessment: 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, status post TAVR History of hypertension Hyperlipidemia Ome-qhwuuyn-glvdehxbm diabetes mellitus Paroxysmal atrial fibrillation status post ablation in 2021 as well as Watch[facility] in August 2023 GI bleed with anemia and history of blood transfusions Chronic heart failure with preserved ejection fraction Lifelong non-smoker Plan: Continue current medication regimen Transthoracic echocardiogram to be completed this morning, will review when completed Increase activity as tolerated Pain control as needed If echocardiogram is stable we will plan for discharge to home this afternoon Follow-up appointments to be made for 1 week for groin checks, as well as 30 days post TAVR and 1 year post TAVR with echocardiograms per Medicare guidelines
[2023-12-24] MEDS ORDERED: bisacodyL 10 MG SUPP RECTAL PRN (09:00)
[2023-12-24] MEDS ORDERED: MAGNESIUM HYDROXIDE 2,400 MG/30 ML CUP PO PRN (09:00)
[2023-12-24 11:21] LABS: Glucose,Whole Blood 229 mg/dL (70-110)
--- NOTE | 2023-12-24 13:34 | CA ---
Transthoracic Echo Report Name: Vale Davila Age: 78 Gender: F : 1945 Exam Date: 12/24/2023 09:03 Exam Location: [facility] Ht (in): 65 Wt (lb): 173 Ordering Physician: Anita Rodriguez Attending/Referring Phys: [id number], Jennifer Burrer Hand Meg Andrews RDCS Procedure CPT: Indications: post TAVR Cardiac Hx: Technical Quality: Fair Contrast 1: Total Dose (mL): Contrast 2: Total Dose (mL): MEASUREMENTS (Male / Female) Normal Values 2D ECHO LV Diastolic Diameter PLAX 5.1 cm 4.2 - 5.9 / 3.9 - 5.3 cm LV Systolic Diameter PLAX 2.7 cm IVS Diastolic Thickness 1.2 cm 0.6 - 1.0 / 0.6 - 0.9 cm LVPW Diastolic Thickness 1.2 cm 0.6 - 1.0 / 0.6 - 0.9 cm LV Relative Wall Thickness 0.5 LVOT Diameter 1.9 cm LV Diastolic Volume MOD BP 116.4 cm??? 67 - 155 / 56 - 104 cm??? LV Systolic Volume MOD BP 49.3 cm??? 22 - 58 / 19 - 49 cm??? LV Ejection Fraction MOD BP 57.7 % >= 55 % LV Cardiac Index MOD BP 2485.2 cm???/min???m??? LV Diastolic Volume MOD 4C 124.5 cm??? LV Systolic Volume MOD 4C 51.5 cm??? LV Ejection Fraction MOD 4C 58.6 % LV Cardiac Index MOD 4C 2700.1 cm???/min???m??? LV Diastolic Length 4C 8.4 cm LV Systolic Length 4C 7.3 cm LV Diastolic Volume MOD 2C 108.9 cm??? LV Systolic Volume MOD 2C 44.2 cm??? LV Ejection Fraction MOD 2C 59.4 % LV Cardiac Index MOD 2C 2393.1 cm???/min???m??? LV Diastolic Length 2C 8.4 cm LV Systolic Length 2C 6.8 cm LA Volume 60.5 cm??? 18 - 58 / 22 - 52 cm??? LA Volume Index 31.5 cm???/m??? 16 - 28 cm???/m??? Ascending Aorta Diameter 3.7 cm DOPPLER AV Peak Velocity 182.3 cm/s AV Peak Gradient 13.3 mmHg AV Mean Velocity 129.9 cm/s AV Mean Gradient 7.5 mmHg AV Velocity Time Integral 38.3 cm LVOT Peak Velocity 114.2 cm/s LVOT Peak Gradient 5.2 mmHg LVOT Velocity Time Integral 24.2 cm LVOT Stroke Volume 65.5 cm??? LVOT Stroke Volume Index 35.2 ml/m??? LVOT Cardiac Index 2424.4 cm???/min???m??? AV Area Cont Eq vti 1.7 cm??? AV Area Cont Eq pk 1.7 cm??? MV Peak Velocity 142.9 cm/s MV Peak Gradient 8.2 mmHg MV Mean Velocity 93.4 cm/s MV Mean Gradient 3.9 mmHg MV Velocity Time Integral 38.4 cm MV Area PHT 3.2 cm??? Mitral E Point Velocity 127.1 cm/s Mitral A Point Velocity 97.3 cm/s Mitral E to A Ratio 1.3 MV Deceleration Time 236.3 ms TR Peak Velocity 244.2 cm/s TR Peak Gradient 23.9 mmHg Right Atrial Pressure 5.0 mmHg Pulmonary Artery Systolic Pressu 28.9 mmHg Right Ventricular Systolic Press 28.9 mmHg PV Peak Velocity 104.3 cm/s PV Peak Gradient 4.4 mmHg FINDINGS Left Ventricle Left ventricular ejection fraction is estimated at 55-60 %. Mildly increased septal wall thickness. Mildly increased posterior wall thickness. Mildly increased left ventricular diastolic volume. No obvious regional wall motion abnormalities. Right Ventricle Mild right ventricular dilatation with normal function. Right ventricular systolic pressure within normal limits. Right Atrium Mild right atrial dilatation. Left Atrium Mildly increased left atrial volume. Mildly increased left atrial area. Mitral Valve Mitral valve thickened. No evidence for mitral valve prolapse. [id number] mitral stenosis. Mean gradient 4mmHg. Trace mitral regurgitation. Aortic Valve Bioprosthetic aortic valve without stenosis with a peak velocity of 1.8 m/s, peak gradient 13 mmHg, mean gradient 7 mmHg, and estimated aortic valve area of 1.7 cm???. Trace periprosthetic regurgitation. No prosthetic regurgitation. Tricuspid Valve Structurally normal tricuspid valve. No tricuspid stenosis. Trace tricuspid regurgitation. Pulmonic Valve Structurally normal pulmonic valve. No pulmonic regurgitation. No pulmonic stenosis. Pericardium No pericardial effusion. Aorta Normal size aortic root and proximal ascending aorta. CONCLUSIONS Left ventricular ejection fraction 55-60% Mildly increased left ventricular wall thickness Mild to moderate mitral stenosis Normally functioning bioprosthetic aortic valve with trace paravalvular leak, trace aortic regurgitation Trace tricuspid regurgitation No pericardial effusion Previewed by: Dr. Charles Winkler DO (Electronically Signed) Final Date: 24 December 2023 13:33
[2023-12-24 13:49] VITALS: BP 124/71; PULSE 76; RESP 16; TEMP 98.3
[2023-12-24 15:09] VITALS: BMI 28.9
--- NOTE | 2023-12-24 15:17 | P.DS ---
Providers Date of admission: 12/23/23 09:33 Expected date of discharge: 12/24/23 Attending physician: Charles Winkler DO Consults: 12/23/23 13:48 Consult Physician Routine Consulting Provider: Bharat Joshua Consult Reason/Comments: post TAVR Do you want consulting provider notified?: Already Contacted Primary care physician: Tim Martinez MD Hospital Course: MEDICAL HISTORY: Calcified aortic valve with severe symptomatic aortic valve stenosis NYHA III History of hypertension Hyperlipidemia Ant-jaxtghh-wslfjeogc diabetes mellitus Paroxysmal atrial fibrillation status post ablation in 2021 as well as [facility] in August 2023 GI bleed with anemia and history of blood transfusions Chronic heart failure with preserved ejection fraction Lifelong non-smoker PROCEDURE: Percutaneous aortic valve implantation using a 29 mm Evolute FX under ARTURO and fluoroscopy guidance Transesophageal echocardiography performed by anesthesia Ultrasound-guided access and repair of right femoral artery access site by Perclose closure device Placement of temporary pacemaker wire Aortic root angiography HISTORY OF PRESENT ILLNESS: This is a 78-year-old female who follows on an outpatient basis with Dr. Martinez for primary care and Dr. Winkler for cardiology. She has a known history of severe aortic stenosis and has been symptomatic with increased exertional dyspnea as well as occasional chest pain. She had been referred to structural heart clinic for evaluation for transcatheter aortic valve replacement after heart catheterization and transesophageal echocardiogram were completed. Echocardiography demonstrated deserved systolic function with EF 55%, aortic valve area 0.6 cm with a peak/mean gradient 69/42 mmHg. Heart catheterization showed mild nonobstructive CAD. After workup was completed STS risk score was calculated along with incremental risk and the patient was felt to be low risk for surgical aortic valve replacement, however taking into account patient's preferences and wishes transcatheter aortic valve replacement was recommended as the patient absolutely did not want to have open heart surgery. The usual course of TAVR was discussed in detail the patient, risks and benefits were reviewed, shared decision making between cardiology, surgery, and the patient/family took place, and the patient consented to proceed with the procedure. HOSPITAL COURSE: The patient was brought to the hospital on 12/23/23, was taken to the extended stay area, prepared in the usual fashion, and subsequently taken to the cardiac catheterization laboratory where Dr. Winkler and Dr. Joshua completed TAVR procedure under general anesthesia with fluoroscopy and ARTURO. The valve was deployed under rapid ventricular pacing and proceeded without event. At the end of the procedure there was mean gradient gradient 6 mmHg, hemodynamics were felt to be acceptable, and there was no evidence of significant perivalvular leak. Upon completion of the procedure the patient was extubated and was transferred to 3 S. cardiac stepdown unit where she was recovered and monitored hemodynamically. Her oxygen was titrated down, she was tolerating oral diet, her pain was controlled, follow-up TTE demonstrated normal left ventricular systolic function with EF 55 to 60%, normally functioning bioprosthetic aortic valve with mean gradient 7 mmHg, trace perivalvular leak and no aortic regurgitation, and she was ready to be discharged to home on postoperative day #1. She received written and verbal instruction regarding her medications, activity restrictions, signs and symptoms requiring physician notification, and follow-up appointments. Patient Condition at Discharge: Stable Plan - Discharge Summary Discharge Rx Participant: No New Discharge Prescriptions: New Sennosides-Docusate Sodium [Senokot-S] 2 each PO HS PRN tab PRN Reason: Constipation Acetaminophen Tab [Tylenol] 650 mg PO Q4HR PRN tab PRN Reason: Fever And/ Or Mild Pain (1-3) Continue Glucos Sul 2Kcl/MSM/Chond/C/Mn [Glucosamine Chondroitin Cap] 1 cap PO DAILY Ergocalciferol (Vitamin D2) [Drisdol (50,000 Iu)] 1,250 mcg PO TH Magnesium 250 mg PO DAILY Omeprazole [PriLOSEC] 20 mg PO AC-BID #60 cap Ferrous Sulfate [Iron (65 MG Elemental)] 325 mg PO DAILY Potassium Gluconate 99 mg PO Q2D PARoxetine [Paxil] 20 mg PO DAILY Cholecalciferol [Vitamin D3 (25 Mcg = 1000 Iu)] 25 mcg PO DAILY Aspirin 81 mg PO DAILY #90 tab Metoprolol Succinate (ER) [Toprol XL] 25 mg PO DAILY #90 tab Furosemide [Lasix] 40 mg PO DAILY rOPINIRole HCL [Requip] 0.5 mg PO HS Atorvastatin [Lipitor] 20 mg PO HS #90 tab Nitroglycerin Sl Tabs [Nitrostat] 0.4 mg SUBLINGUAL Q5M PRN tab PRN Reason: Chest Pain Clopidogrel [Plavix] 75 mg PO DAILY tab metFORMIN HCL [Glucophage] 1,000 mg PO BID #0 Discharge Medication List Glucos Sul 2Kcl/MSM/Chond/C/Mn [Glucosamine Chondroitin Cap] 1 cap PO DAILY 02/02/19 [History] Ergocalciferol (Vitamin D2) [Drisdol (50,000 Iu)] 1,250 mcg PO TH 03/05/21 [History] Furosemide [Lasix] 40 mg PO DAILY 03/05/21 [History] Magnesium 250 mg PO DAILY 03/05/21 [History] Omeprazole [PriLOSEC] 20 mg PO AC-BID #60 cap 06/07/21 [Rx] Ferrous Sulfate [Iron (65 MG Elemental)] 325 mg PO DAILY 02/17/22 [History] Cholecalciferol [Vitamin D3 (25 Mcg = 1000 Iu)] 25 mcg PO DAILY 05/20/23 [History] PARoxetine [Paxil] 20 mg PO DAILY 05/20/23 [History] Potassium Gluconate 99 mg PO Q2D 05/20/23 [History] rOPINIRole HCL [Requip] 0.5 mg PO HS 05/20/23 [History] Aspirin 81 mg PO DAILY #90 tab 10/29/23 [Rx] Atorvastatin [Lipitor] 20 mg PO HS #90 tab 10/29/23 [Rx] Clopidogrel [Plavix] 75 mg PO DAILY tab 10/29/23 [Rx] Nitroglycerin Sl Tabs [Nitrostat] 0.4 mg SUBLINGUAL Q5M PRN tab 10/29/23 [Rx] Metoprolol Succinate (ER) [Toprol XL] 25 mg PO DAILY #90 tab 11/09/23 [Rx] Acetaminophen Tab [Tylenol] 650 mg PO Q4HR PRN tab 12/24/23 [Rx] Sennosides-Docusate Sodium [Senokot-S] 2 each PO HS PRN tab 12/24/23 [Rx] metFORMIN HCL [Glucophage] 1,000 mg PO BID #0 12/24/23 [Rx] Follow up Appointment(s)/Referral(s): Tim Martinez MD [Primary Care Provider] - As Needed Charles Winkler DO [STAFF PHYSICIAN] - 01/04/24 9:00 am (Your appointment on 01/04/24 is for a groin check. You also have a 30-day post TAVR echocardiogram and follow-up with Dr. Winkler on 02/23/24 @ 8:15 AM, and a 1 year post TAVR echocardiogram and follow-up with Dr. Winkler on 11/28/24 @ 8:30 AM) Clinic,[facility] Heart [NON-STAFF] - 02/23/24 9:30 am (You have a 30-day follow-up with the TAVR clinic on 02/23/24 @ 9:30 AM, and a 1 year follow-up with the TAVR clinic on 11/28/24 @ 9:30 AM) Ambulatory/Diagnostic Orders: Basic Metabolic Panel [LAB.AMB] Location: None Selected Basic Metabolic Panel [LAB.AMB] Location: None Selected Complete Blood Count w/diff [LAB.AMB] Location: None Selected Complete Blood Count w/diff [LAB.AMB] Location: None Selected Activity/Diet/Wound Care/Special Instructions: DISCHARGE INSTRUCTIONS: 1. No driving for 1 week, or until physician gives their ok. 2. No lifting, pushing, or pulling more than 5-10 pounds for 1 week. 3. Hold both groins when you cough or sneeze for the next 2 weeks. Bruising is common, but report increased swelling, pain or fever >101F 4. Shower daily. No pool, hot tub, or bathtub for 1 week 5. No powders, lotions, ointments on incisions. 6. No straining, including for bowel movements. Use stool softner if necessary 7. Stairs are not an issue. Go slowly, using handrail and take 1 step at a time. Ambulate several times daily 8. Continue pain control per as needed orders. 9. Take only the medications listed on your discharge form 10. Eat low salt (limited to 2 grams or 2000 milligrams) daily, avoid adding salt, avoid canned/processed foods 11. Take your weight daily in the morning and record, bring with you to your follow up appointments 12. Keep all follow up appointments. You will need a valve clinic appointment at 30 days and 1 year post procedure for follow up 13. You have been referred to and are expected to begin Cardiac Rehab in approximately 4 weeks. 14. You will need antibiotics prior to any dental work, including cleanings, and any surgeries to prevent Endocarditis (bacterial infection in your heart) For any questions or concerns please call your valve coordinators: Anita or Dylan @ Discharge Disposition: HOME SELF-CARE
== END 2023-12-24 15:58 | disposition home or self-care (01) | DRG 267 ==
LOC: 2ORMAIN 09:33 → 3SCARD 15:48
PROVIDERS: ADMIT Internal Medicine; ATTEND Internal Medicine
PROC: 5A1223Z Performance of Cardiac Pacing, Continuous (ICD-10-PCS; 2023-12-23)
PROC: 02RF38Z Replacement of Aortic Valve with Zooplastic Tissue, Percutaneous Approach (ICD-10-PCS; principal; 2023-12-23 12:30)
PROC: B24BZZ4 Ultrasonography of Heart with Aorta, Transesophageal (ICD-10-PCS; 2023-12-23 12:30)
DX: I35.0 Nonrheumatic aortic (valve) stenosis (principal); Z00.6 Encounter for examination for normal comparison and control in clinical research program; I50.32 Chronic diastolic (congestive) heart failure; I48.0 Paroxysmal atrial fibrillation; E78.5 Hyperlipidemia, unspecified; E11.9 Type 2 diabetes mellitus without complications; I25.10 Atherosclerotic heart disease of native coronary artery without angina pectoris; I11.0 Hypertensive heart disease with heart failure; Z79.84 Long term (current) use of oral hypoglycemic drugs; Z79.899 Other long term (current) drug therapy